=== PATIENT | male | born 1935 | race Caucasian/White ===

== ENCOUNTER 2016-11-29 16:11 | Inpatient (IN) | payer OTHER, MEDICARE ==
--- NOTE | 2016-11-29 16:35 | EDPHY ---
H & P Time Seen by Provider: 11/29/16 16:35 HPI/ROS: Portions of this note were transcribed by a medical appliance maker. I personally performed the history, physical exam, and medical decision-making; and confirmed the accuracy of the information in the transcribed note. CHIEF COMPLAINT: Cough, fever, weakness HISTORY OF PRESENT ILLNESS: The patient is an anticoagulated 81y/o male arriving with his due to cough, weakness, and fever since yesterday. He was recently admitted for a lower GI bleed and discharged 48 hours ago. He is on Pradaxa for atrial fibrillation. His has been ill with an upper respiratory illness recently. The reports a fever of 101.5F today and generalized weakness. The patient says he was able to walk the dog this morning , but then came home and collapsed. He feels extremely tired and is worse with exertion. Not associated with chest pain. He does endorse some mild abdominal pain and headache. He denies black or bloody stools, sore throat, vomiting, visual problems. REVIEW OF SYSTEMS: Eye: no change in vision ENT: no sore throat Cardiac: no chest pain or syncope Pulmonary: see HPI Abdomen: see HPI Musculoskeletal: no back pain Skin: no rash Neuro: poor balance from CVA Constitutional: no fever : no urinary symptoms A comprehensive 10 point review of systems is otherwise negative aside from elements mentioned in the history of present illness. PAST MEDICAL HISTORY: CVA, atrial fibrillation, sleep apnea, depression Social history: Former smoker, at bedside PCP: Dr. Carey at [facility] General Appearance: Alert and conversant, cooperative. Eyes: No scleral icterus. ENT, Mouth: Normal mucous membranes. Normal pharynx. Respiratory: Normal respiratory effort, breath sounds equal, lungs have left lower lung crackles. Cardiovascular: Regular rate and rhythm. 2/6 systolic murmur Gastrointestinal: Abdomen is soft and non tender. Neurological: Alert and oriented x3. Normally conversant. Face symmetric, normal movement and sensation in all extremities. Skin: Warm and diaphoretic, no rashes. Musculoskeletal: No peripheral edema and no joint swelling. Psychiatric: Not agitated. Emergency Department course/MDM: IV established. Labs drawn including CBC, CHEM, bilirubin, PTPTT, lactic acid, cultures. 1L IV NS administered. Patient placed on athletic monitor. Plan for chest x-ray. Study: PA and Lateral Chest X-ray Indication: Cough, fever Results: After viewing the images myself on the PACS system. My interpretation of the images is: left lower lobe infiltrate. The radiologist interpretation is pending at the time of this dictation. The 12 lead EKG was interpreted by myself. EKG shows sinus rhythm rate 58 with nonspecific intraventricular conduction delay, minimal ST depression anterolateral leads. See hard copy and/or "tracemaster" electronic copy for interpretation. 1744: Results discussed with the patient. Initial oxygen saturation was documented at 88% but the patient was down as low as 82% in the room. He will need to be admitted to the hospital for possible healthcare acquired pneumonia with recent inpatient stay. He does not currently have SIRS criteria. Cefepime and azithromycin, discussed with hospitalist. Needs to be admitted for hypoxemia, oxygen, and IV antibiotics. Smoking Status: Never smoked Constitutional: Initial Vital Signs Temperature (C) 37.2 C 11/29/16 16:16 Heart Rate 61 11/29/16 16:16 Respiratory Rate 18 11/29/16 16:16 Blood Pressure 128/71 H 11/29/16 16:16 O2 Sat (%) 88 L 11/29/16 16:16 O2 Delivery Mode Room Air Allergies/Adverse Reactions: amiodarone [Amiodarone] Allergy (Unknown, Verified 04/26/10 21:28) Other-Enter Comments hydromorphone HCl [From Dilaudid] Allergy (Unknown, Verified 04/26/10 21:28) Other-Enter Comments Home Medications: Medication Instructions Recorded Valacyclovir HCl [Valacyclovir] 1,000 mg PO BID PRN 11/09/15 C/E/Zn/Cu/OM3/DHA/EPA/LUT/ZEAX 1 each PO HS 11/25/16 [Preservision Areds 2 Softgel] Dabigatran Etexilate Mesyl 150 mg PO BID 11/25/16 [Pradaxa 150 MG (*)] Losartan Potassium [Cozaar 50 mg 100 mg PO HS 11/25/16 (*)] [place]-3 Fatty Acids [Fish Oil 1000 1,000 mg PO DAILY 11/25/16 mg (*)] Pravastatin Sodium 20 mg PO DAILY 11/25/16 Acetaminophen [Tylenol 325mg (*)] 650 mg PO PRN PRN 11/29/16 Cholecalciferol Vit D3 [Vitamin D3 1,000 units PO BID 11/29/16 (*)] Fluticasone Nasal [Flonase Nasal 1 sprays EACHNARE DAILY PRN 11/29/16 [place] (RX)] Vit B Comp/C/FA/Iron/Vit E 1 each PO DAILY 11/29/16 [Vitamin B Complex Tablet] prednisoLONE ACET 1% [Pred Forte 1 drop EACHEYE TID 11/29/16 1% (*)] Medical Decision Making Differential Diagnosis: Differential considered including but not limited to pneumonia, UTI, stroke, acute coronary syndrome, metabolic abnormality. On Pradaxa, I think pulmonary embolism is unlikely. Consult/Admit Bed Type: Leticia Francis 2791 - Data Points Laboratory Results: Laboratory Results 11/29/16 16:41 11/29/16 16:41 11/29/16 11/29/16 16:48 16:41 WBC 4.29 10^3/uL (3.80-9.50) RBC 3.29 L 10^6/uL (4.40-6.38) Hgb 9.9 L g/dL (13.7-17.5) Hct 28.3 L % (40.0-51.0) MCV 86.0 fL (81.5-99.8) MCH 30.1 pg (27.9-34.1) MCHC 35.0 g/dL (32.4-36.7) RDW 13.4 % (11.5-15.2) Plt Count 124 L 10^3/uL (150-400) MPV 10.2 fL (8.7-11.7) Neut % (Auto) 76.7 H % (39.3-74.2) Lymph % (Auto) 9.3 L % (15.0-45.0) Cherry % (Auto) 11.0 % (4.5-13.0) Eos % (Auto) 1.9 % (0.6-7.6) Baso % (Auto) 0.2 L % (0.3-1.7) Nucleat RBC Rel Count 0.5 H % (0.0-0.2) Absolute Neuts (auto) 3.29 10^3/uL (1.70-6.50) Absolute Lymphs (auto) 0.40 L 10^3/uL (1.00-3.00) Absolute Monos (auto) 0.47 10^3/uL (0.30-0.80) Absolute Eos (auto) 0.08 10^3/uL (0.03-0.40) Absolute Basos (auto) 0.01 L 10^3/uL (0.02-0.10) Absolute Nucleated RBC 0.02 H 10^3/uL (0-0.01) Immature Gran % 0.9 % (0.0-1.1) Immature Gran # 0.04 10^3/uL (0.00-0.10) PT 16.5 H SEC (12.0-15.0) INR 1.33 H (0.83-1.16) APTT 38.8 H SEC (23.0-38.0) VBG Lactic Acid 0.9 mmol/L (0.7-2.1) Sodium 137 mEq/L (134-144) Potassium 3.9 mEq/L (3.5-5.2) Chloride 102 mEq/L (97-110) Carbon Dioxide 25 mEq/l (22-31) Anion Gap 10 mEq/L (8-16) BUN 8 mg/dL (7-23) Creatinine 1.0 mg/dL (0.7-1.3) Estimated GFR > 60 Glucose 112 H mg/dL (70-100) Calcium 8.7 mg/dL (8.5-10.4) Total Bilirubin 0.7 mg/dL (0.1-1.4) Medications Given: Discontinued Medications Cefepime HCl 1 gm/ Dextrose 50 mls @ 100 mls/hr IV EDNOW ONE PRN Reason: Protocol Stop: 11/29/16 18:16 Last Admin: 11/29/16 18:13 Dose: 50 mls Sodium Chloride (Ns) 1,000 mls @ 0 mls/hr IV ONCE ONE PRN Reason: Wide Open Stop: 11/29/16 17:48 Last Admin: 11/29/16 18:13 Dose: 1,000 mls Departure - Departure Disposition: [facility] Inpatient Acute Clinical Impression: Pneumonia Qualifiers: Pneumonia type: due to unspecified organism Laterality: left Lung location: lower lobe of lung Qualifier Code: (J18.1) Lobar pneumonia, unspecified organism Condition: Fair
--- NOTE | 2016-11-29 16:49 | CPEKG ---
Heart Rate: 58 RR Interval: 1034 P-R Interval: 168 QRSD Interval: 112 QT Interval: 436 QTC Interval: 429 P Pickford: 26 QRS Pickford: 14 T Wave Pickford: 47 EKG Severity - ABNORMAL ECG - EKG Impression: SINUS RHYTHM EKG Impression: NONSPECIFIC INTRAVENTRICULAR CONDUCTION DELAY EKG Impression: MINIMAL ST DEPRESSION, ANTEROLATERAL LEADS Electronically Signed By: Afshin West 29-Nov-2016 19:32:03
[2016-11-29 16:56] LABS: % IMMATURE GRANULYOCYTES 0.9 % (0.0-1.1); ABSOLUTE IMMATURE GRANULOCYTES 0.04 10^3/uL (0.00-0.10); ABSOLUTE NRBC COUNT 0.02 10^3/uL (0-0.01); ADD DIFF? NO; ADD MORPH? NO; ADD SCAN? NO; ATYPICAL LYMPHOCYTE FLAG 40 (0-99); FRAGMENT RBC FLAG 0 (0-99); HEMATOCRIT 28.3 % (40.0-51.0); HEMOGLOBIN 9.9 g/dL (13.7-17.5); LEFT SHIFT FLG 0 (0-99); LIPEMIA HEMOLYSIS FLAG 90 (0-99); MEAN CELL HEMOGLOBIN 30.1 pg (27.9-34.1); MEAN PLATELET VOLUME 10.2 fL (8.7-11.7); NRBC-AUTO% 0.5 % (0.0-0.2); PLATELET CLUMPS FLAG 0 (0-99); PLATELET COUNT 124 10^3/uL (150-400); RED BLOOD CELL COUNT 3.29 10^6/uL (4.40-6.38); RED CELL DISTRIBUTION WIDTH 13.4 % (11.5-15.2)
[2016-11-29 17:12] LABS: INR 1.33 (0.83-1.16); PROTIME(PATIENT) 16.5 SEC (12.0-15.0)
[2016-11-29 17:13] LABS: APTT 38.8 SEC (23.0-38.0); BILIRUBIN,TOTAL 0.7 mg/dL (0.1-1.4)
[2016-11-29 17:37] LABS: ANION GAP 10 mEq/L (8-16); CALCIUM 8.7 mg/dL (8.5-10.4); CARBON DIOXIDE 25 mEq/l (22-31); CHLORIDE 102 mEq/L (97-110); GLOMERULAR FILTRATION RATE > 60; GLUCOSE 112 mg/dL (70-100); POTASSIUM 3.9 mEq/L (3.5-5.2); SODIUM 137 mEq/L (134-144)
[2016-11-29] MEDS ORDERED: AZITHROMYCIN IV 500 MG in D5W 250 ML IV ONE (17:47)
[2016-11-29] MEDS ORDERED: NS 1,000 ML IV ONE (17:47)
[2016-11-29] MEDS ORDERED: CEFEPIME HCL 1 GM in D5W 50 ML IV ONE (17:47)
--- NOTE | 2016-11-29 18:00 | DX ---
Chest, AP Upright and Lateral Views, November 29, 2016 at 4:55 p.m. Clinical History: 81-year-old male with a cough since yesterday. Comparison Study: Chest, dated November 09, 2015. Findings: Oxygen tubing and telemetry monitoring lead lines are noted. The cardiac silhouette is mary rderline-enlarged, however, is stable. There is mild peribronchial thickening. There is some bronch ovascular crowding at the posterior left lung base, which may reflect an early mild infiltrate. Ther e is no pleural effusion, peripheral interstitial edema, or pneumothorax. A dextrothoracic scoliosis is seen. There are surgical clips in the upper abdomen. Impression: Suspect an early infiltrate at the posterior left lung base. Results were discussed with Dr. Afshin West.
[2016-11-29] MEDS ORDERED: valACYclovir 500 MG TAB PO PRN (18:59)
[2016-11-29] MEDS ORDERED: ACETAMINOPHEN 325 MG TAB PO PRN (18:59)
[2016-11-29] MEDS ORDERED: FLUTICASONE NASAL 120 SPRAYS/16 GM MDI EACHNARE PRN (18:59)
[2016-11-29] MEDS ORDERED: IBUPROFEN 200 MG TAB PO PRN (19:01)
[2016-11-29] MEDS ORDERED: ONDANSETRON DISINTEGRATING 4 MG TAB PO PRN (19:01)
[2016-11-29] MEDS ORDERED: ONDANSETRON 4 MG/2 ML VIAL IVP PRN (19:01)
--- NOTE | 2016-11-29 20:09 | GHP ---
[f rep st] HISTORY AND PHYSICAL DATE OF ADMISSION: 11/29/2016 HISTORY OF PRESENT ILLNESS: The patient is a pleasant, 81-year-old gentleman, with a history of atri al fibrillation with stroke and recent admission for lower GI bleed, discharged 2 days ago, who prese nts with malaise and cough. It sounds like his cough started yesterday. He did get a flu shot this year. He has had modest shortness of breath and he has had subjective fevers. His noted a temp erature of 101.5. He was able to walk the dog this morning, but came home and felt very fatigued aft er that. He has had no myalgias. No diarrhea. He has been eating poorly secondary to poor appetite. He has had no further black or bloody stools. He has not vomited. PAST MEDICAL HISTORY: 1. Atrial fibrillation on Pradaxa. 2. History of CVA, little residual. 3. Recent lower GI bleed, presumed secondary to diverticular disease as diverticula were seen on col onoscopy. 4. Mild cognitive dysfunction. 5. Colon cancer, status post resection, radiation, chemotherapy. 6. TAMARA using CPAP. 7. Depression. 8. Hypertension. 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 He has traveled the world. No tobacco. He quit sm oking in 1945. He drinks 3 ounces of alcohol a day. FAMILY HISTORY: His parents are . ALLERGIES: Amiodarone, hydromorphone. HOME MEDICATIONS: Pradaxa, Flonase, Tylenol, prednisolone eye drops, vitamin B complex, vitamin D3, valacyclovir 1000 p.r.n., pravastatin, fish oil, losartan, PreserVision. PHYSICAL EXAM: PRESENTING VITAL SIGNS: Temp 37.2, blood pressure 128/71, pulse 61, breathing 18 earnestine es per minute, 88% on room air. GENERAL: No acute distress. HEENT: Sclerae anicteric. Oropharynx clear. Mucous membranes are moist. NECK: Supple, without lymphadenopathy or JVD. LUNGS: Clear t o auscultation bilaterally, though has some decreased breath sounds to left base. HEART: S1, S2. N ot tachycardic. Without significant murmurs. ABDOMEN: Soft, nontender, nondistended. LOWER EXTREM ITIES: Without edema. Calves are nontender. SKIN: Without rash. NEUROLOGIC: Nonfocal. LABORATORY DATA: White count 4.3, hematocrit 28.3, which is up from 27.6 a couple of days ago. Plat elets are 124,000. INR is 1.33. Venous lactate is 0.9. Chem 7 is normal. BUN and creatinine are 8 and 1.0. Influenza is positive for influenza A. Chest x-ray, interpreted by me, shows possible ear ly left lower lobe infiltrate. EKG is pending. I discussed the case with Dr. Afshin West. ASSESSMENT AND PLAN: This is an 81-year-old gentleman with influenza and possible secondary pneumoni a. 1. Influenza. The patient did get a flu shot this year, apparently it was not completely effective. We will start him on Tamiflu. 2. Pneumonia. Given the focality of this, it may represent bacterial pneumonia, so he received cefe pime and azithromycin in the emergency department. I will transition him to levofloxacin. 3. Atrial fibrillation. Will continue to use Pradaxa. He is not on any danie agents. 4. Recent lower GI bleed. He remains anemic, but bleeding appears to have stopped. We will follow. 5. Prophylaxis. . 6. Disposition. Inpatient status. /[id number]/MODL
[2016-11-29] MEDS: DABIGATRAN ETEXILATE MESYL 150 MG CAP PO SCH (20:59)
[2016-11-29] MEDS: CHOLECALCIFEROL VIT D3 1,000 UNITS TAB PO SCH (21:00)
[2016-11-29] MEDS: PRESERVISION AREDS 2 EYE VITAMIN 1 EACH PO SCH (21:00)
[2016-11-29] MEDS: LOSARTAN POTASSIUM 50 MG TAB PO SCH (21:00)
[2016-11-29] MEDS: prednisoLONE ACET 1% 5 ML OPHT.BTL EACHEYE SCH (22:51)
[2016-11-30 05:00] LABS: % IMMATURE GRANULYOCYTES 0.6 % (0.0-1.1); ABSOLUTE IMMATURE GRANULOCYTES 0.02 10^3/uL (0.00-0.10); ABSOLUTE NRBC COUNT 0.02 10^3/uL (0-0.01); ADD DIFF? NO; ADD MORPH? NO; ADD SCAN? NO; ATYPICAL LYMPHOCYTE FLAG 0 (0-99); FRAGMENT RBC FLAG 0 (0-99); HEMATOCRIT 26.6 % (40.0-51.0); HEMOGLOBIN 9.1 g/dL (13.7-17.5); LEFT SHIFT FLG 0 (0-99); LIPEMIA HEMOLYSIS FLAG 90 (0-99); MEAN CELL HEMOGLOBIN 29.7 pg (27.9-34.1); MEAN CELL HEMOGLOBIN CONCENTR. 34.2 g/dL (32.4-36.7); MEAN CELL VOLUME 86.9 fL (81.5-99.8); MEAN PLATELET VOLUME 10.4 fL (8.7-11.7); NRBC-AUTO% 0.6 % (0.0-0.2); PLATELET CLUMPS FLAG 0 (0-99); PLATELET COUNT 116 10^3/uL (150-400); RED BLOOD CELL COUNT 3.06 10^6/uL (4.40-6.38); RED CELL DISTRIBUTION WIDTH 13.6 % (11.5-15.2)
[2016-11-30 05:42] LABS: ANION GAP 9 mEq/L (8-16); CALCIUM 8.1 mg/dL (8.5-10.4); CARBON DIOXIDE 25 mEq/l (22-31); CHLORIDE 104 mEq/L (97-110); CREATININE 0.9 mg/dL (0.7-1.3); GLOMERULAR FILTRATION RATE > 60; GLUCOSE 106 mg/dL (70-100); SODIUM 138 mEq/L (134-144)
[2016-11-30] MEDS: CHOLECALCIFEROL VIT D3 1,000 UNITS TAB PO SCH ×2 (10:03→20:45)
[2016-11-30] MEDS: OSELTAMIVIR PHOSPHATE 75 MG CAP PO SCH ×2 (10:03→18:24)
[2016-11-30] MEDS: VITAMIN B COMPLEX 1 EA CAP/TAB PO SCH (10:03)
[2016-11-30] MEDS: DABIGATRAN ETEXILATE MESYL 150 MG CAP PO SCH ×2 (10:03→20:45)
[2016-11-30] MEDS: PRAVASTATIN SODIUM 20 MG TAB PO SCH (10:04)
[2016-11-30] MEDS: OMEGA-3 FATTY ACIDS 1,000 MG CAP PO SCH (10:04)
[2016-11-30] MEDS: prednisoLONE ACET 1% 5 ML OPHT.BTL EACHEYE SCH ×3 (10:10→20:48)
--- NOTE | 2016-11-30 13:11 | HOSPPROG ---
Hospitalist Progress Note Assessment/Plan: 81-year-old male presents emergency room complaints of cough and weakness. This is my 1st encounter with the patient, chart reviewed. Discussed patient's care with Dr. Hima Francis admitting physician. # influenzae a Continue supportive care # pneumonia Continue antibiotic therapy # weakness PT OT eval # atrial fibrillation Continue Pradaxa # acute hypoxemic respiratory failure Continue supportive oxygen therapy # anemia Normocytic Had reported recent gastrointestinal bleed No signs of bleeding currently Appears stable # history of CVA Chronic weakness secondary to this complication # disposition Await PT OT eval and recommendations Anticipate patient discharge in the next 1-2 days Will likely need home health care at the minimum Subjective: Up in bed. Still feels weak and tired. Continues to have complaints of cough. No other specific issues. Objective: Vital Signs Temp Pulse Resp BP Pulse Ox 37.0 C 72 18 132/89 H 94 11/30/16 11:20 11/30/16 11:20 11/30/16 11:20 11/30/16 11:20 11/30/16 11:20 Laboratory Results 11/30/16 04:48 11/30/16 04:48 11/29/16 11/30/16 12/01/16 05:59 05:59 05:59 Intake Total 1925 Output Total 400 Balance 1525 PT 16.5 SEC (12.0-15.0) H 11/29/16 16:48 INR 1.33 (0.83-1.16) H 11/29/16 16:48 - Physical Exam Constitutional: not in pain, chronically ill appearing, cachectic Eyes: PERRL, anicteric sclera, EOMI Ears, Nose, Mouth, Throat: moist mucous membranes, hearing normal, ears appear normal Cardiovascular: regular rate and rhythym, No JVD, No edema Respiratory: no respiratory distress, no rales or rhonchi, reduced air movement Gastrointestinal: No tenderness, No ascites, No guarding Skin: warm, normal color, No erythema Musculoskeletal: muscular tenderness, abnormal gait, generalized weakness Neurologic: AAOx3 Psychiatric: interacting appropriately, not anxious, not encephalopathic ICD10 Worksheet Patient Problems: Problems Problem Status Diagnosed Pneumonia Acute Bronchitis Acute Dehydration Acute GIB (gastrointestinal bleeding) Acute Intoxication Acute
[2016-11-30] MEDS: LOSARTAN POTASSIUM 50 MG TAB PO SCH (20:45)
[2016-11-30] MEDS: PRESERVISION AREDS 2 EYE VITAMIN 1 EACH PO SCH (20:45)
[2016-12-01] MEDS: CHOLECALCIFEROL VIT D3 1,000 UNITS TAB PO SCH ×2 (08:30→20:38)
[2016-12-01] MEDS: VITAMIN B COMPLEX 1 EA CAP/TAB PO SCH (08:30)
[2016-12-01] MEDS: OMEGA-3 FATTY ACIDS 1,000 MG CAP PO SCH (08:30)
[2016-12-01] MEDS: OSELTAMIVIR PHOSPHATE 75 MG CAP PO SCH ×2 (08:30→17:36)
[2016-12-01] MEDS: DABIGATRAN ETEXILATE MESYL 150 MG CAP PO SCH ×2 (08:30→20:38)
[2016-12-01] MEDS: PRAVASTATIN SODIUM 20 MG TAB PO SCH (08:30)
[2016-12-01] MEDS: prednisoLONE ACET 1% 5 ML OPHT.BTL EACHEYE SCH ×3 (08:30→21:46)
--- NOTE | 2016-12-01 08:47 | HOSPPROG ---
Hospitalist Progress Note Assessment/Plan: 81-year-old male presents emergency room complaints of cough and weakness. This is my 1st encounter with the patient, chart reviewed. # influenzae a Continue supportive care # pneumonia Continue antibiotic therapy on 2 L of oxygen will check O2 levels on room air # weakness PT OT eval # atrial fibrillation Continue Pradaxa # acute hypoxemic respiratory failure Continue supportive oxygen therapy # anemia Normocytic Had reported recent gastrointestinal bleed No signs of bleeding currently # history of CVA Chronic weakness secondary to this complication concerned that he is weak from the above # disposition pending /PT and OT are recommending home care versus a alf facility Subjective: Pepe wants to go home/ says he likes resting in the bed and that is why he has not been ambulating. Objective: Vital Signs Temp Pulse Resp BP Pulse Ox 36.7 C 79 18 109/67 95 12/01/16 07:21 12/01/16 07:21 12/01/16 07:21 12/01/16 07:21 12/01/16 07:21 Laboratory Results 11/30/16 04:48 11/30/16 04:48 11/30/16 12/01/16 12/02/16 05:59 05:59 05:59 Intake Total 1925 200 Output Total 400 2300 Balance 1525 -2100 PT 16.5 SEC (12.0-15.0) H 11/29/16 16:48 INR 1.33 (0.83-1.16) H 11/29/16 16:48 - Physical Exam Constitutional: no apparent distress, appears nourished Eyes: PERRL Ears, Nose, Mouth, Throat: hearing normal Cardiovascular: regular rate and rhythym Respiratory: no respiratory distress, reduced air movement (bibasilar) Gastrointestinal: normoactive bowel sounds Skin: warm, normal color Musculoskeletal: generalized weakness Neurologic: AAOx3 Psychiatric: interacting appropriately ICD10 Worksheet Patient Problems: Problems Problem Status Diagnosed Pneumonia Acute Bronchitis Acute Dehydration Acute GIB (gastrointestinal bleeding) Acute Intoxication Acute
[2016-12-01] MEDS ORDERED: NS 300 ML IV ONE (12:02)
[2016-12-01] MEDS: NS 1,000 ML IV SCH (20:38)
[2016-12-01] MEDS: PRESERVISION AREDS 2 EYE VITAMIN 1 EACH PO SCH (20:38)
[2016-12-02 05:29] LABS: % IMMATURE GRANULYOCYTES 0.8 % (0.0-1.1); ABSOLUTE IMMATURE GRANULOCYTES 0.03 10^3/uL (0.00-0.10); ADD DIFF? NO; ADD MORPH? NO; ADD SCAN? NO; ATYPICAL LYMPHOCYTE FLAG 70 (0-99); FRAGMENT RBC FLAG 0 (0-99); HEMATOCRIT 32.3 % (40.0-51.0); HEMOGLOBIN 10.9 g/dL (13.7-17.5); LEFT SHIFT FLG 10 (0-99); LIPEMIA HEMOLYSIS FLAG 80 (0-99); MEAN CELL HEMOGLOBIN 29.7 pg (27.9-34.1); MEAN CELL HEMOGLOBIN CONCENTR. 33.7 g/dL (32.4-36.7); MEAN PLATELET VOLUME 10.6 fL (8.7-11.7); PLATELET CLUMPS FLAG 0 (0-99); PLATELET COUNT 159 10^3/uL (150-400); RED BLOOD CELL COUNT 3.67 10^6/uL (4.40-6.38); RED CELL DISTRIBUTION WIDTH 13.5 % (11.5-15.2)
[2016-12-02 06:02] LABS: ANION GAP 12 mEq/L (8-16); CARBON DIOXIDE 18 mEq/l (22-31); CHLORIDE 110 mEq/L (97-110); CREATININE 0.9 mg/dL (0.7-1.3); GLOMERULAR FILTRATION RATE > 60; GLUCOSE 90 mg/dL (70-100); POTASSIUM 4.3 mEq/L (3.5-5.2); SODIUM 140 mEq/L (134-144)
[2016-12-02] MEDS: NS 1,000 ML IV SCH (07:28)
[2016-12-02] MEDS: DABIGATRAN ETEXILATE MESYL 150 MG CAP PO SCH ×2 (09:13→21:02)
[2016-12-02] MEDS: PRAVASTATIN SODIUM 20 MG TAB PO SCH (09:13)
[2016-12-02] MEDS: CHOLECALCIFEROL VIT D3 1,000 UNITS TAB PO SCH ×2 (09:14→21:02)
[2016-12-02] MEDS: OSELTAMIVIR PHOSPHATE 75 MG CAP PO SCH ×2 (09:14→17:50)
[2016-12-02] MEDS: OMEGA-3 FATTY ACIDS 1,000 MG CAP PO SCH (09:14)
[2016-12-02] MEDS: VITAMIN B COMPLEX 1 EA CAP/TAB PO SCH (09:14)
[2016-12-02] MEDS: prednisoLONE ACET 1% 5 ML OPHT.BTL EACHEYE SCH ×4 (10:58→21:02)
[2016-12-02] MEDS ORDERED: NS 250 ML IV ONE (11:18)
--- NOTE | 2016-12-02 11:20 | HOSPPROG ---
Hospitalist Progress Note Assessment/Plan: 81-year-old male presents emergency room complaints of cough and weakness. # influenzae a Continue supportive care # pneumonia Continue antibiotic therapy on 2 L of oxygen oxygen levels on room air ranging from 88% to 92% blood cx show no growth #. hypotension required fluid boluses yesterday spoke with occupational therapy and patient was hypotensive after ambulating. will give another fluid bolus now will continue holding his losartan # weakness PT OT seeing Pepe # atrial fibrillation Continue Pradaxa # acute hypoxemic respiratory failure Continue supportive oxygen therapy # anemia Normocytic Had reported recent gastrointestinal bleed No signs of bleeding currently # history of CVA Chronic weakness secondary to this complication concerned that he is weak from the above # disposition pending /blood pressure has been low again today/ he is not ready to go home/ will need home care at [place]/ reviewed his care with OT Subjective: Pepe has no complaints/ is worried about paying taxes and wants to get home soon. Objective: Vital Signs Temp Pulse Resp BP Pulse Ox 36.6 C 83 16 104/73 94 12/02/16 07:51 12/02/16 07:51 12/02/16 07:51 12/02/16 07:51 12/02/16 07:51 Laboratory Results 12/02/16 04:51 12/02/16 04:51 12/01/16 12/02/16 12/03/16 05:59 05:59 05:59 Intake Total 200 770 Output Total 2300 300 Balance -2100 470 PT 16.5 SEC (12.0-15.0) H 11/29/16 16:48 INR 1.33 (0.83-1.16) H 11/29/16 16:48 - Physical Exam Constitutional: not in pain, chronically ill appearing Eyes: PERRL Ears, Nose, Mouth, Throat: hearing normal Cardiovascular: regular rate and rhythym Respiratory: no respiratory distress Gastrointestinal: normoactive bowel sounds Skin: warm, normal color Musculoskeletal: generalized weakness Neurologic: AAOx3 Psychiatric: interacting appropriately, not anxious, poor insight ICD10 Worksheet Patient Problems: Problems Problem Status Diagnosed Pneumonia Acute Bronchitis Acute Dehydration Acute GIB (gastrointestinal bleeding) Acute Intoxication Acute
[2016-12-02] MEDS: PRESERVISION AREDS 2 EYE VITAMIN 1 EACH PO SCH (21:02)
[2016-12-03 06:11] LABS: % IMMATURE GRANULYOCYTES 1.3 % (0.0-1.1); ABSOLUTE IMMATURE GRANULOCYTES 0.05 10^3/uL (0.00-0.10); ADD DIFF? NO; ADD MORPH? NO; ADD SCAN? YES; FRAGMENT RBC FLAG 0 (0-99); HEMATOCRIT 31.6 % (40.0-51.0); HEMOGLOBIN 10.9 g/dL (13.7-17.5); LEFT SHIFT FLG 10 (0-99); LIPEMIA HEMOLYSIS FLAG 90 (0-99); MEAN CELL HEMOGLOBIN 29.8 pg (27.9-34.1); MEAN CELL HEMOGLOBIN CONCENTR. 34.5 g/dL (32.4-36.7); MEAN CELL VOLUME 86.3 fL (81.5-99.8); MEAN PLATELET VOLUME 10.2 fL (8.7-11.7); PLATELET CLUMPS FLAG 0 (0-99); PLATELET COUNT 164 10^3/uL (150-400); RED BLOOD CELL COUNT 3.66 10^6/uL (4.40-6.38); RED CELL DISTRIBUTION WIDTH 13.5 % (11.5-15.2)
[2016-12-03 06:13] LABS: ATYPICAL LYMPHOCYTE FLAG 120 (0-99)
[2016-12-03 06:48] LABS: SCAN NEGATIVE
[2016-12-03 08:03] VITALS: RESP 18; TEMP 97.8
[2016-12-03] MEDS: DABIGATRAN ETEXILATE MESYL 150 MG CAP PO SCH (08:51)
[2016-12-03] MEDS: CHOLECALCIFEROL VIT D3 1,000 UNITS TAB PO SCH (08:51)
[2016-12-03] MEDS: OMEGA-3 FATTY ACIDS 1,000 MG CAP PO SCH (08:51)
[2016-12-03] MEDS: OSELTAMIVIR PHOSPHATE 75 MG CAP PO SCH (08:52)
[2016-12-03] MEDS: VITAMIN B COMPLEX 1 EA CAP/TAB PO SCH (08:52)
[2016-12-03] MEDS: PRAVASTATIN SODIUM 20 MG TAB PO SCH (08:52)
[2016-12-03] MEDS: prednisoLONE ACET 1% 5 ML OPHT.BTL EACHEYE SCH (09:02)
--- NOTE | 2016-12-03 09:18 | HOSPPROG ---
Hospitalist Progress Note Assessment/Plan: 81-year-old male presents emergency room complaints of cough and weakness. # influenzae a Continue supportive care # pneumonia Continue antibiotic therapy oxygen levels on room air are 91-95% #. hypotension resolve/ holding Losartan #. GI distress this a.m. resolved after having a bowel movement # weakness PT OT seeing Pepe # atrial fibrillation Continue Pradaxa # acute hypoxemic respiratory failure resolved # anemia Normocytic Had reported recent gastrointestinal bleed No signs of bleeding currently will get an h/h checked in one week # history of CVA Chronic weakness secondary to this complication concerned that he is weak from the above # disposition: home w home care/ Patient was asking to stay another night to give his support since she has been feeling poorly. Explained to him that we will arrange home care to f/u with him. He is oxygenating well and has no further complaints. Subjective: Pepe has no c/o pain. Objective: Vital Signs Temp Pulse Resp BP Pulse Ox 36.6 C 100 18 145/70 H 98 12/03/16 08:00 12/03/16 08:00 12/03/16 08:00 12/03/16 08:00 12/03/16 08:00 Laboratory Results 12/03/16 05:26 12/02/16 04:51 12/02/16 12/03/16 12/04/16 05:59 05:59 05:59 Intake Total 770 1500 Output Total 300 400 Balance 470 1500 -400 PT 16.5 SEC (12.0-15.0) H 11/29/16 16:48 INR 1.33 (0.83-1.16) H 11/29/16 16:48 - Physical Exam Constitutional: no apparent distress, appears nourished, chronically ill appearing Eyes: PERRL Ears, Nose, Mouth, Throat: hearing normal Cardiovascular: regular rate and rhythym Respiratory: no respiratory distress, clear to auscultation Gastrointestinal: normoactive bowel sounds Skin: warm Musculoskeletal: no muscle tenderness Neurologic: AAOx3 Psychiatric: interacting appropriately, not anxious, not encephalopathic ICD10 Worksheet Patient Problems: Problems Problem Status Diagnosed Chronic Disease Mgmt/Transitional Care Acute Pneumonia Acute Bronchitis Acute Dehydration Acute GIB (gastrointestinal bleeding) Acute Intoxication Acute
[2016-12-03 10:26] VITALS: BP 105/65; PULSE 102; O2SAT 94
--- NOTE | 2016-12-03 11:42 | PDIAF ---
- Diagnosis Diagnosis: Influenza/ CAP Code Status: Full Code - Medication Management Discharge Medications: Medications to Continue on Transfer Valacyclovir HCl [Valacyclovir] 1,000 mg PO BID PRN 11/09/15 [Last Taken Unknown ] C/E/Zn/Cu/OM3/DHA/EPA/LUT/ZEAX [Preservision Areds 2 Softgel] 1 each PO HS 11/25 [Last Taken 11/29/16] Dabigatran Etexilate Mesyl [Pradaxa 150 MG (*)] 150 mg PO BID 11/25/16 [Last Taken 11/29/16] Losartan Potassium [Cozaar 50 mg (*)] 100 mg PO HS 11/25/16 [Last Taken 11/28/16 ] [place]-3 Fatty Acids [Fish Oil 1000 mg (*)] 1,000 mg PO DAILY 11/25/16 [Last Taken 11/28/16] Pravastatin Sodium 20 mg PO DAILY 11/25/16 [Last Taken 11/29/16] Acetaminophen [Tylenol 325mg (*)] 650 mg PO PRN PRN 11/29/16 [Last Taken ] Cholecalciferol Vit D3 [Vitamin D3 (*)] 1,000 units PO BID 11/29/16 [Last Taken 11/29/16 08:00] Fluticasone Nasal [Flonase Nasal [place]] 1 sprays EACHNARE DAILY PRN 11/29/16 [ Last Taken 11/29/16] Vit B Comp/C/FA/Iron/Vit E [Vitamin B Complex Tablet] 1 each PO DAILY 11/29/16 [ Last Taken 11/29/16] prednisoLONE ACET 1% [Pred Forte 1% (*)] 1 drop LEFTEYE TID 11/29/16 [Last Taken 11/29/16 12:00] Oseltamivir Phosphate [Tamiflu 75 mg (*)] 75 mg PO BIDMEAL #3 cap 12/03/16 [ Last Taken Unknown] levOFLOXACIN [levAQUIN (*)] 750 mg PO DAILY #3 tab 12/03/16 [Last Taken Unknown] Discharge Medications: Refer to the Discharge Home Medication list for PRN reason. - Orders Services needed: Home Care, Registered Nurse, Physical Therapy, Occupational Therapy Home Care Face to Face: I certify that this patient was under my care and that I had the required [id number] encounter meeting the encounter requirements on the discharge day. My findings support the fact that the patient is homebound as defined in CMS Chapter 7 Medicare Benefits Manual 30.1.1, The condition of the patient is such that there exists a normal inability to leave home and consequently, leaving home would require a considerable and taxing effort. Diet Recommendation: no restrictions on diet Diet Texture: Regular Texture Diet Additional: check blood pressure daily/ Losartan has been on hold due to low blood pressure while in the hospital/ discuss w PCP as to when to resume. Continue holding for now. Needs a repeat chest xray in 4-6 weeks for f/u care. - Labs/Radiology HCT/HGB Date: 12/09/15 Call or Fax Lab and Imaging Results to: to PCP - Follow Up Care Current Providers and Referrals: Rebeka Campbell [Primary Care Provider] - As per Instructions
--- NOTE | 2016-12-03 12:20 | GDS ---
[f rep st] DISCHARGE SUMMARY DISCHARGE DIAGNOSES: 1. Influenza A. 2. Community-acquired pneumonia. 3. Hypotension. 4. Gastrointestinal distress this morning. 5. Weakness. 6. Atrial fibrillation. 7. Acute hypoxemic respiratory failure. 8. Anemia. 9. History of cerebrovascular accident. BRIEF HISTORY: The patient is an 81-year-old gentleman with a history of atrial fibrillation, who was admitted prior to this admission for a lower GI bleed. He then represented to the emergency room with malaise and cough. He did get the flu shot. It was noted that he had influenza A. In addition, he was treated with Levaquin. He improved nicely through his stay. He will be discharged home with followup with his primary care provider. HOSPITAL COURSE PER PROBLEM: 1. Influenza A. he was treated with Tamiflu, will have 3 more doses. 2. Pneumonia. He is on Levaquin. Blood cultures are negative. His oxygen levels on room air are 91% to 95%. 3. Hypotension. Resolved with holding losartan. Spoke with his and recommend she hold this for the next week or 2, and talk to the primary care provider. 4. GI distress this morning. This has resolved after having a bowel movement. 5. Weakness. Much improved with PT and OT. 6. Atrial fibrillation. On Pradaxa. 7. Acute hypoxemic respiratory failure, resolved. 8. Anemia, normocytic. He had a recent GI bleed. He has no signs or symptoms of active bleeding. He will get a hemoglobin and hematocrit checked in 1 week. 9. History of CVA, stable. PENDING LABS AND TESTS: None. CONDITION ON DISCHARGE: Stable. Blood pressure is 145/70, O2 sats on room air 98%, respiratory rate is 18, pulse is 90, temperature 36.6 Celsius. MEDICATIONS AT DISCHARGE: Please see the EMR. DISCHARGE INSTRUCTIONS: 1. To resume his home medications, except to hold the losartan until he follows up with his primary care provider. 2. If he has fever, chills, chest pain or shortness of breath return to the ER. 3. To take the antibiotics and Tamiflu as instructed. Greater than 30 minutes discharging and coordinating care. /[id number]/MODL MTDD
== END 2016-12-03 13:34 | disposition home health service (06) | DRG 193 ==
LOC: F3E 18:29
PROVIDERS: ADMIT Internal Medicine; ATTEND Internal Medicine
DX: J10.00 Influenza due to other identified influenza virus with unspecified type of pneumonia (principal); J18.9 Pneumonia, unspecified organism; J96.00 Acute respiratory failure, unspecified whether with hypoxia or hypercapnia; I48.91 Unspecified atrial fibrillation; D64.9 Anemia, unspecified; K30 Functional dyspepsia; I95.9 Hypotension, unspecified; Z79.01 Long term (current) use of anticoagulants; Z86.73 Personal history of transient ischemic attack (TIA), and cerebral infarction without residual deficits
CPT/HCPCS: 96365; 97116-GP; 97162-GP; 97166-GO; 97530-GO; 97530-GP; 97535-GO; G8978-GP-CJ; G8979-GP-CI; G8987-GO-CK; G8988-GO-CI; G8989-GO-CI; J0456; J0692; J1956

== ENCOUNTER 2017-05-27 10:48 | Inpatient (IN) | payer OTHER, MEDICARE ==
--- NOTE | 2017-05-27 11:29 | EDPHY ---
H & P Time Seen by Provider: 05/27/17 11:09 HPI/ROS: CHIEF COMPLAINT: Urinary frequency HISTORY OF PRESENT ILLNESS: The patient is an 82-year-old male with history of bladder cancer and recent tumor removal two weeks ago, who presents with urinary frequency and urgency. Bactrim was prescribed after the surgery, the patient only took one. He received first dose of IV chemotherapy after the surgery. Since the surgery patient complains of urinary frequency and urgency. The patient had a urinary catheter placed, but continued to have urgency. The catheter was removed and patient urinated 17 times in one night. Last night the patient had a low grade fever of 99.8. He is slightly confused. Patient has decreased appetite due to nausea and is becoming increasingly more weak. He states he has not had anything to eat or drink due to associated nausea, dizziness, and fatigue. REVIEW OF SYSTEMS: A comprehensive 10 point review of systems is otherwise negative aside from elements mentioned in the history of present illness. Past Medical/Surgical History: HTN, AFib, Colon cancer, Sleep apnea, Depression, CVA, TIA Social History: . Has visiting home nurse. Smoking Status: Never smoked Physical Exam: General Appearance: Alert, slightly confused Eyes: Pupils equal and round, no conjunctival pallor or injection ENT, Mouth: Mucous membranes moist Neck: Normal inspection Respiratory: Lungs are clear to auscultation Cardiovascular: Regular rate and rhythm Gastrointestinal: Abdomen is soft and non-tender Genitourinary: Normal inspection Neurological: A&O, nonfocal exam Skin: Warm and dry, no rash Extremities: Nontender, no pedal edema Psychiatric: Mood and affect normal Constitutional: Initial Vital Signs Temperature (C) 36.5 C 05/27/17 10:52 Heart Rate 69 05/27/17 10:52 Respiratory Rate 14 05/27/17 10:52 Blood Pressure 119/93 H 05/27/17 10:52 O2 Sat (%) 95 05/27/17 10:52 O2 Delivery Mode Room Air Allergies/Adverse Reactions: amiodarone [Amiodarone] Allergy (Unknown, Verified 04/26/10 21:28) Other-Enter Comments hydromorphone HCl [From Dilaudid] Allergy (Unknown, Verified 04/26/10 21:28) Other-Enter Comments Sulfa (Sulfonamide Antibiotics) Allergy (Verified 05/27/17 13:38) Other-Enter Comments Home Medications: Medication Instructions Recorded Valacyclovir HCl [Valacyclovir] 1,000 mg PO BID PRN 11/09/15 C/E/Zn/Cu/OM3/DHA/EPA/LUT/ZEAX 1 each PO HS 11/25/16 [Preservision Areds 2 Softgel] Losartan Potassium [Cozaar 50 mg 100 mg PO HS 11/25/16 (*)] [place]-3 Fatty Acids [Fish Oil 1000 1,000 mg PO DAILY 11/25/16 mg (*)] Pravastatin Sodium 20 mg PO DAILY 11/25/16 Acetaminophen [Tylenol 325mg (*)] 650 mg PO PRN PRN 11/29/16 Cholecalciferol Vit D3 [Vitamin D3 1,000 units PO DAILY 11/29/16 (*)] Fluticasone Nasal [Flonase Nasal 1 sprays EACHNARE DAILY PRN 11/29/16 [place]] Vit B Comp/C/FA/Iron/Vit E 1 each PO DAILY 11/29/16 [Vitamin B Complex Tablet] prednisoLONE ACET 1% [Pred Forte 1 drop LEFTEYE DAILY 11/29/16 1% (*)] Apixaban [Eliquis] 2.5 mg PO BID 05/27/17 buPROPion SR [Wellbutrin 100mg SR 100 mg PO DAILY 05/27/17 (*)] Medical Decision Making - Diagnostics EKG Interpretation: EKG interpreted by me reveals normal sinus rhythm, normal axis, normal intervals , ST and T segments normal. Interpretation: normal EKG ED Course/Re-evaluation: Patient with history of bladder cancer, recent tumor removal two weeks ago, presents with urinary frequency. Patient received 1 dose of Bactrim after the surgery. He received first IV chemotherapy after the surgery. On exam patient is alert and slightly confused. Lab work including UA, CBC, and BMP ordered. UA consistent with urinary tract infection. Urine culture sent. Rocephin 1 g IV given. Given the patient's generalized weakness and confusion, he will be admitted for treatment of urinary tract infection. The hospitalist service was consulted for admission. Patient was stable throughout his emergency department stay. He does not meet SIRS criteria. Differential Diagnosis: Differential diagnosis for fever includes pyelonephritis, cholecystitis, influenza, cellulitis, pneumonia, abscess, meningitis. - Data Points Microbiology Results: MICROBIOLOGY 05/27/17 10:50 Urine,Clean Catch Urine Culture - Preliminary Enterobacter Cloacae Complex Medications Given: Discontinued Medications Sodium Chloride (Ns) 1,000 mls @ 0 mls/hr IV ONCE ONE; Wide Open PRN Reason: Protocol Stop: 05/27/17 11:48 Last Admin: 05/27/17 12:20 Dose: 1,000 mls Ceftriaxone Sodium/Dextrose (Rocephin 1 Gm (Premix)) 50 mls @ 100 mls/hr IV EDNOW ONE PRN Reason: Protocol Stop: 05/27/17 12:25 Last Admin: 05/27/17 12:27 Dose: 50 mls Sodium Chloride (Ns) 1,000 mls @ 3,000 mls/hr IV ONCE ONE Stop: 05/27/17 15:54 Last Admin: 05/27/17 17:01 Dose: 1,000 mls Sodium Chloride (Ns) 1,000 mls @ 100 mls/hr IV CONT FRANCESCA Stop: 11/23/17 15:44 Last Admin: 05/28/17 17:29 Dose: 1,000 mls Departure - Departure Disposition: [facility] Inpatient Acute Clinical Impression: UTI (urinary tract infection) Qualifiers: Urinary tract infection type: site unspecified Hematuria presence: with hematuria Qualified Code(s): N39.0 - Urinary tract infection, site not specified Bladder cancer Qualifiers: Bladder location: unspecified site Qualified Code(s): C67.9 - Malignant neoplasm of bladder, unspecified Condition: Good Report Scribed for: Cindy Lee Report Scribed by: Katie Xie Date of Report: 05/27/17 Time of Report: 11:42 Physician Review and Approval Statement: 05/27/17 11:42 Portions of this note were transcribed by a medical psychotherapist. I personally performed the history, physical exam, and medical decision-making; and confirmed the accuracy of the information in the transcribed note.
[2017-05-27 11:40] LABS: COLOR AMBER; LEUKOCYTE ESTERASE,URINE 3+ (NEGATIVE); NITRITE,URINE POSITIVE (NEGATIVE)
[2017-05-27] MEDS ORDERED: NS 1,000 ML IV ONE ×2 (11:47→15:35)
[2017-05-27 11:48] LABS: BACTERIA 2+ /hpf (NONE SEEN); MUCUS 2+ /lpf (NONE-1+); RBC,URINE 15-25 /hpf (0-3); WBC,URINE 50-182 /hpf (0-3)
--- NOTE | 2017-05-27 12:15 | CPEKG ---
Heart Rate: 69 RR Interval: 870 P-R Interval: 144 QRSD Interval: 106 QT Interval: 384 QTC Interval: 412 P [place]: 0 QRS [place]: 79 T Wave [place]: 74 EKG Severity - NORMAL ECG - EKG Impression: SINUS RHYTHM Electronically Signed By: Cindy Lee 27-May-2017 14:46:59
[2017-05-27 13:22] LABS: % IMMATURE GRANULYOCYTES 1.4 % (0.0-1.1); ABSOLUTE IMMATURE GRANULOCYTES 0.18 10^3/uL (0.00-0.10); ADD DIFF? NO; ADD MORPH? NO; ADD SCAN? YES; ATYPICAL LYMPHOCYTE FLAG 0 (0-99); FRAGMENT RBC FLAG 0 (0-99); HEMATOCRIT 43.9 % (40.0-51.0); HEMOGLOBIN 14.9 g/dL (13.7-17.5); LEFT SHIFT FLG 10 (0-99); LIPEMIA HEMOLYSIS FLAG 90 (0-99); MEAN CELL HEMOGLOBIN CONCENTR. 33.9 g/dL (32.4-36.7); MEAN CELL VOLUME 85.4 fL (81.5-99.8); MEAN PLATELET VOLUME 10.2 fL (8.7-11.7); PLATELET COUNT 159 10^3/uL (150-400); RED BLOOD CELL COUNT 5.14 10^6/uL (4.40-6.38); RED CELL DISTRIBUTION WIDTH 14.1 % (11.5-15.2)
[2017-05-27 13:35] LABS: ANION GAP 14 mEq/L (8-16); CALCIUM 9.5 mg/dL (8.5-10.4); CARBON DIOXIDE 21 mEq/l (22-31); CHLORIDE 99 mEq/L (97-110); CREATININE 1.1 mg/dL (0.7-1.3); GLOMERULAR FILTRATION RATE > 60; GLUCOSE 94 mg/dL (70-100); POTASSIUM 5.1 mEq/L (3.5-5.2); SODIUM 134 mEq/L (134-144)
[2017-05-27 13:59] LABS: PLATELET CLUMPS FLAG 190 (0-99)
[2017-05-27 14:02] LABS: SCAN NEGATIVE
[2017-05-27] MEDS ORDERED: ONDANSETRON DISINTEGRATING 4 MG TAB PO PRN (14:28)
[2017-05-27] MEDS ORDERED: ONDANSETRON 4 MG/2 ML VIAL IVP PRN (14:28)
[2017-05-27] MEDS ORDERED: valACYclovir 500 MG TAB PO PRN (14:32)
[2017-05-27] MEDS ORDERED: FLUTICASONE NASAL 120 SPRAYS/16 GM MDI EACHNARE PRN (14:32)
[2017-05-27] MEDS: ACETAMINOPHEN 325 MG TAB PO PRN ×2 (15:24→21:12)
--- NOTE | 2017-05-27 16:22 | GHP ---
[f rep st] HISTORY AND PHYSICAL DATE OF ADMISSION: 05/27/2017 CHIEF COMPLAINT: Fevers, chills. HISTORY OF PRESENT ILLNESS: An 82-year-old male with a history of atrial fibrillation and stroke wi th recent diagnosis of bladder cancer status post bladder cancer resection surgery by Dr. Hong And luh at [facility] on 05/14/2017. The patient was discharged from that hospitalization and pe r the 's report, has had many complications since; first of which included a bad reaction to a s ulfa-based antibiotic. Patient was then not treated with additional antibiotics after his reaction; started instead on Pyridium and VESIcare. The patient developed subjective fevers and chills over the course of 72 hours prior to presentation with abdominal discomfort urinary frequency with urinat ion 10-15 times in the evening prior to presentation. The patient then developed anorexia and nause a. No vomiting. Denies any diarrhea. Denies any hematuria denies any vision changes, headache, ch est pain, or shortness of breath. describes the patient as being quite functional typically wi th excellent appetite. The patient did develop some mild cognitive dysfunction after stroke. She s ays his mental status has been markedly worse since arriving to the hospital today. She is noting m ore lethargy, confusion, and inability to track conversation. PAST MEDICAL HISTORY: 1. New diagnosis bladder cancer status post surgical resection on 05/14/2017. 2. History of colon cancer status post resection radiation and chemotherapy. 3. Atrial fibrillation on Pradaxa. 4. History of a CVA with minimal residual deficits besides cognitive. 5. Mild cognitive impairment. 6. History of a lower GI bleed secondary to diverticula. 7. Depression. 8. Hypertension. 9. Obstructive sleep apnea, on CPAP. 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 Does not smoke. Does not use marijuana or il licit drugs. Enjoys a scotch in the evenings. FAMILY HISTORY: Unknown, patient was raised in an orphanage. REVIEW OF SYSTEMS: A 10-point review of systems is negative with the exception of that reported in the HPI. ADVANCED DIRECTIVES: Patient is full cor, full tube while hospitalized. His is his medical de cision maker. REVIEW OF SYSTEMS: A 10-point review of systems is negative with the exception of that reported in the HPI. PHYSICAL EXAMINATION: VITAL SIGNS: Blood pressure 154/69, heart rate 69, respiratory rate 18, 91% on room air. GENERAL: This is a healthy-appearing elderly male, sitting up in bed. HEENT: Notabl e for dentures and dry mucous membranes. Eye exam is negative for any icterus. CARDIAC EXAM: Aliyah ent is regular rate and rhythm. PULMONARY: Good respiratory effort. Clear to auscultation bilater ally. GASTROINTESTINAL: Positive bowel sounds. ABDOMEN: Soft. The patient is tender to palpatio n in the bilateral lower quadrants. MUSCULOSKELETAL: Negative for any lower extremity edema. SKIN : Exam is negative for any rashes. NEUROLOGIC: The patient is alert and oriented to person and pl howie. He is slow in answering questions. Unable to finish multi-step tasks in my exam. Sensation i s intact throughout and strength is intact throughout. PSYCHIATRIC: He is pleasant and cooperative on interview and examination. DATA: EKG, which I personally reviewed and interpreted, shows sinus rhythm, normal axis, normal int ervals, with no acute ST-T changes. White count is 12.4, baselines appear closer to 3 or 4; hematoc rit 43.9, most recently checked baselines in the low 30s; platelet count of 159. Sodium 134, creati nine 1.1 (baseline appears to be 0.9). BUN 20. Anion gap of 14. Urinalysis shows 1+ protein, 2+ b lood, positive nitrates, 15-25 red blood cells, 50-182 white cells with 3+ leuk esterase. ASSESSMENT AND PLAN: 1. This is an 82-year-old male presenting with acute pyelonephritis. The patient is status post re cent bladder tumor resection presenting with frequency, subjective fevers, chills, and encephalopath y. The patient is receiving IV ceftriaxone in the emergency department. Urine culture has been sen t. Will order blood cultures in addition. Can await urine cultures to contour antibiotic therapy. 2. Acute encephalopathy presumed secondary to acute infection. Will fluid resuscitate with normal saline. Treat with empiric IV ceftriaxone and follow the patient's clinical progression item. 3. Acute leukocytosis secondary to pyelonephritis. Will await urine cultures and treat empirically with ceftriaxone. 4. Atrial fibrillation. Patient will be continued on Eliquis. He is currently rate controlled, no t on any rate control medications. Again, will fluid resuscitate and follow his vial signs. 5. Hypertension. Patient's blood pressures are stable. I will hold his losartan this evening simp ly for secondary to concern that he could become more unstable and hypotensive overnight. If he rem ains borderline hypertensive, can reinitiate his home losartan in the morning. 6. Acute kidney injury presumed secondary to hypovolemia. Again, holding on patient's ARB loconidaryl t. Can follow his renal function post fluid resuscitation. 7. Hyperlipidemia. We will continue his statin therapy. 8. New diagnosis bladder cancer. The patient has not been evaluated by Oncology yet. Have consult ed the [facility] on-call for consultation and guidance related to options for adjuvant chemotherapy with his new bladder cancer diagnosis. 9. Prophylaxis. Patient is on Eliquis. 10. Diet: Regular as tolerated with nourishment. DISPOSITION: I expect greater than 2 midnights. The patient is presenting with acute encephalopath y and pyelonephritis. Will require aggressive fluid resuscitation, IV antibiotics, and monitoring. I have discussed the case with the emergency room physician. Patient will be admitted to the medic al-surgical floor for care. /[id number]/MODL
[2017-05-27] MEDS: NS 1,000 ML IV SCH (18:37)
--- NOTE | 2017-05-27 19:11 | GCON ---
[f rep st] CONSULTATION ONCOLOGY CONSULTATION REASON FOR CONSULTATION: Bladder cancer. HISTORY OF PRESENT ILLNESS: The patient is an 82-year-old gentleman with a current history of atria l fibrillation, a previous history of a stroke. He was brought into the hospital with subjective fe vers and chills over the last 72 hours, and associated abdominal discomfort and urinary frequency. He has not had any appetite. He has had some nausea, but no vomiting. He denies any hematuria rece ntly. He is somewhat confused, so much of the information is from the records, and I also spoke to his , as well as to Dr. Escamilla. He was recently diagnosed with a non-muscle invasive bladder cancer, and underwent surgical resectio n on May 14, 2017. The next day, he received intravesicular mitomycin. According Dr. Escamilla, he was deciding between just close monitoring versus BCG therapies, but according to the , she was told that he needs BCG therapy for a year. She is looking to get a second opinion. ALLERGIES: He has an allergy to amiodarone, hydromorphone, and sulfa. MEDICATIONS: At home include bupropion, apixaban, Tylenol, valacyclovir, pravastatin, losartan, [place]-3 fatty acid, fludrocortisone, cholecalciferol, PreserVision, prednisolone acetate into his left eye. PAST MEDICAL HISTORY: Chronic illnesses include: 1. The bladder cancer, as per HPI, in that it is non-muscle invasive, but high-grade tumor. I susi andrea, because it was involving the lamina propria, it is T1, NX, MX. 2. Remote history of colon cancer, but I do not have any details on this. 3. Atrial fibrillation, currently on Eliquis. 4. History of CVA. 5. Depression. 6. Hypertension. 7. Obstructive sleep apnea. SURGICAL HISTORY: Includes a bladder cancer resection, colon cancer resection. SOCIAL HISTORY: He is . Does not smoke or use illicit drugs. Has a drink every day. FAMILY HISTORY: The patient was raised in an orphanage. REVIEW OF SYSTEMS: A 10-point review of system is difficult to obtain, mostly from the chart, but t he patient denies any pain or hematuria. Pertinent positives as in HPI, otherwise negative. PHYSICAL EXAM: VITAL SIGNS: Temperature on arrival is 36.5, pulse 101, blood pressure is 119/93. He did have a temperature to 38 this afternoon, it is currently 37.9. GENERAL: He was confused, bu t awake and alert. CARDIAC: Mildly tachycardic, but regular. LUNGS: Clear. ABDOMEN: Soft. No organomegaly. Mildly tender in the lower quadrants. NEUROLOGIC: A little bit disoriented to place , but answers questions and is clearly aware of the situation. He is very pleasant and cooperative. LABORATORY DATA: White count is 12,500, hemoglobin and platelet count are normal. On the different ial, he is left-shifted. Chemistries: His creatinine is 1.1, otherwise unremarkable. UA showed po sitive nitrites, 2+ blood, and 2+ bacteria. Microbiology is pending. IMPRESSION: 1. Stage I (T1, NX, MX) non-muscle invasive bladder cancer. 2. Probable urosepsis. Generally, superficial bladder cancers are managed by the urologist. General procedure is transuret hral resection, and either close observation or followed by adjuvant therapy such as BCG. If they k eep having recurrences, then cystectomy could be considered as well. His had concerns, and wan evelio a second opinion, which is reasonable. I told her that generally, our service, as Oncology, love s not get involved with his level of bladder cancer, and there is no role for radiation or systemic chemotherapy. I will be available for questions. We will check on him again while he is in the [facility]. /[id number]/MODL
[2017-05-27] MEDS: PRESERVISION AREDS2 FORMULA EYE VIT 1 EACH PO SCH (20:18)
[2017-05-27] MEDS: APIXABAN 2.5 MG TAB PO SCH (20:19)
[2017-05-28] MEDS: NS 1,000 ML IV SCH ×2 (03:41→17:29)
[2017-05-28] MEDS: ACETAMINOPHEN 325 MG TAB PO PRN (03:51)
[2017-05-28] MEDS ORDERED: cefTRIAXone 1 GM in D5W 50 ML IV SCH (09:00)
[2017-05-28] MEDS: CHOLECALCIFEROL VIT D3 1,000 UNITS TAB PO SCH (09:13)
[2017-05-28] MEDS: PRAVASTATIN SODIUM 20 MG TAB PO SCH (09:13)
[2017-05-28] MEDS: VITAMIN B COMPLEX 1 EA CAP/TAB PO SCH (09:13)
[2017-05-28] MEDS: prednisoLONE ACET 1% 5 ML OPHT.BTL LEFTEYE SCH (09:14)
[2017-05-28] MEDS: OMEGA-3 FATTY ACIDS 1,000 MG CAP PO SCH (09:14)
[2017-05-28] MEDS: buPROPion SR 100 MG TAB PO SCH (09:14)
[2017-05-28] MEDS: APIXABAN 2.5 MG TAB PO SCH ×2 (09:14→19:58)
--- NOTE | 2017-05-28 12:06 | HOSPPROG ---
Hospitalist Progress Note Assessment/Plan: Pyelonephritis - Pt feels a bit better. UCx growing GNR's. BCx pending. Trend wbc, still awaiting repeat today. Cont Ceftriaxone. Stage 1 bladder cancer s/p resection - outpt f/u with urology. appreciate onc input. A fib - rate controlled, not on AV danie blockers. Cont Eliquis for CVA prevention. Hypertension - BP's stable today, fair control. Cont to hold Losartan and resume when indicated. Hyperkalemia - K 5.1 yesterday, ARB held. Will recheck today. Full code Dispo - cont inpt DVT PPLX - on Eliquis Subjective: Pt feels better, no more dysuria. No fevers. No N/V. Objective: Vital Signs Temp Pulse Resp BP Pulse Ox 36.7 C 59 L 18 130/69 H 94 05/28/17 09:21 05/28/17 09:21 05/28/17 09:21 05/28/17 09:21 05/28/17 10:49 Laboratory Results 05/27/17 13:08 05/27/17 13:08 05/27/17 05/28/17 05/29/17 05:59 05:59 05:59 Intake Total 2500 1689 Output Total 600 Balance 1900 1689 - Physical Exam Constitutional: no apparent distress Eyes: PERRL Ears, Nose, Mouth, Throat: moist mucous membranes Cardiovascular: regular rate and rhythym Respiratory: no respiratory distress, clear to auscultation Gastrointestinal: normoactive bowel sounds, soft, non-tender abdomen Skin: warm Musculoskeletal: full muscle strength Neurologic: AAOx3 Psychiatric: interacting appropriately ICD10 Worksheet Patient Problems: Problems Problem Status Onset Bladder cancer Acute UTI (urinary tract infection) Acute Bronchitis Acute Chronic Disease Mgmt/Transitional Care Acute Dehydration Acute GIB (gastrointestinal bleeding) Acute Intoxication Acute Pneumonia Acute
[2017-05-28 12:33] LABS: % IMMATURE GRANULYOCYTES 2.5 % (0.0-1.1); ABSOLUTE IMMATURE GRANULOCYTES 0.27 10^3/uL (0.00-0.10); ADD DIFF? NO; ADD MORPH? NO; ADD SCAN? NO; ATYPICAL LYMPHOCYTE FLAG 0 (0-99); FRAGMENT RBC FLAG 0 (0-99); HEMATOCRIT 42.9 % (40.0-51.0); HEMOGLOBIN 14.4 g/dL (13.7-17.5); LEFT SHIFT FLG 80 (0-99); LIPEMIA HEMOLYSIS FLAG 80 (0-99); MEAN CELL HEMOGLOBIN CONCENTR. 33.6 g/dL (32.4-36.7); MEAN CELL VOLUME 86.3 fL (81.5-99.8); MEAN PLATELET VOLUME 10.5 fL (8.7-11.7); PLATELET CLUMPS FLAG 0 (0-99); PLATELET COUNT 172 10^3/uL (150-400); RED BLOOD CELL COUNT 4.97 10^6/uL (4.40-6.38); RED CELL DISTRIBUTION WIDTH 14.2 % (11.5-15.2)
[2017-05-28 12:36] LABS: ANION GAP 12 mEq/L (8-16); CALCIUM 8.6 mg/dL (8.5-10.4); CARBON DIOXIDE 19 mEq/l (22-31); CHLORIDE 103 mEq/L (97-110); CREATININE 1.1 mg/dL (0.7-1.3); GLOMERULAR FILTRATION RATE > 60; GLUCOSE 102 mg/dL (70-100); POTASSIUM 4.2 mEq/L (3.5-5.2); SODIUM 134 mEq/L (134-144)
[2017-05-28 16:50] VITALS: RESP 16
[2017-05-28] MEDS: PRESERVISION AREDS2 FORMULA EYE VIT 1 EACH PO SCH (19:59)
[2017-05-29 05:17] LABS: % IMMATURE GRANULYOCYTES 1.4 % (0.0-1.1); ABSOLUTE IMMATURE GRANULOCYTES 0.09 10^3/uL (0.00-0.10); ADD DIFF? NO; ADD MORPH? NO; ADD SCAN? NO; ATYPICAL LYMPHOCYTE FLAG 0 (0-99); FRAGMENT RBC FLAG 0 (0-99); HEMATOCRIT 38.4 % (40.0-51.0); LEFT SHIFT FLG 10 (0-99); LIPEMIA HEMOLYSIS FLAG 90 (0-99); MEAN CELL HEMOGLOBIN CONCENTR. 33.9 g/dL (32.4-36.7); MEAN CELL VOLUME 85.7 fL (81.5-99.8); MEAN PLATELET VOLUME 10.2 fL (8.7-11.7); PLATELET CLUMPS FLAG 20 (0-99); PLATELET COUNT 152 10^3/uL (150-400); RED BLOOD CELL COUNT 4.48 10^6/uL (4.40-6.38); RED CELL DISTRIBUTION WIDTH 13.8 % (11.5-15.2)
[2017-05-29 05:27] LABS: ANION GAP 8 mEq/L (8-16); CALCIUM 8.7 mg/dL (8.5-10.4); CARBON DIOXIDE 19 mEq/l (22-31); CHLORIDE 107 mEq/L (97-110); CREATININE 1.1 mg/dL (0.7-1.3); GLOMERULAR FILTRATION RATE > 60; GLUCOSE 98 mg/dL (70-100); POTASSIUM 3.9 mEq/L (3.5-5.2); SODIUM 134 mEq/L (134-144)
[2017-05-29 07:18] VITALS: BP 115/79; PULSE 59; TEMP 97.2; O2SAT 90
[2017-05-29] MEDS: buPROPion SR 100 MG TAB PO SCH (09:16)
[2017-05-29] MEDS: PRAVASTATIN SODIUM 20 MG TAB PO SCH (09:16)
[2017-05-29] MEDS: VITAMIN B COMPLEX 1 EA CAP/TAB PO SCH (09:16)
[2017-05-29] MEDS: CHOLECALCIFEROL VIT D3 1,000 UNITS TAB PO SCH (09:16)
[2017-05-29] MEDS: OMEGA-3 FATTY ACIDS 1,000 MG CAP PO SCH (09:16)
[2017-05-29] MEDS: APIXABAN 2.5 MG TAB PO SCH (09:16)
[2017-05-29] MEDS: prednisoLONE ACET 1% 5 ML OPHT.BTL LEFTEYE SCH (09:17)
--- NOTE | 2017-05-29 14:17 | PDIAF ---
- Diagnosis Diagnosis: pyelonephritis, bladder cancer Code Status: Full Code - Medication Management Discharge Medications: Medications to Continue on Transfer Valacyclovir HCl [Valacyclovir] 1,000 mg PO BID PRN 11/09/15 [Last Taken Unknown ] C/E/Zn/Cu/OM3/DHA/EPA/LUT/ZEAX [Preservision Areds 2 Softgel] 1 each PO HS 11/25 [Last Taken 05/26/17] Losartan Potassium [Cozaar 50 mg (*)] 100 mg PO HS 11/25/16 [Last Taken 05/26/17 ] [place]-3 Fatty Acids [Fish Oil 1000 mg (*)] 1,000 mg PO DAILY 11/25/16 [Last Taken 05/27/17] Pravastatin Sodium 20 mg PO DAILY 11/25/16 [Last Taken 05/27/17] Acetaminophen [Tylenol 325mg (*)] 650 mg PO PRN PRN 11/29/16 [Last Taken 07:30] Cholecalciferol Vit D3 [Vitamin D3 (*)] 1,000 units PO DAILY 11/29/16 [Last Taken 05/27/17] Fluticasone Nasal [Flonase Nasal [place]] 1 sprays EACHNARE DAILY PRN 11/29/16 [ Last Taken 11/29/16] Vit B Comp/C/FA/Iron/Vit E [Vitamin B Complex Tablet] 1 each PO DAILY 11/29/16 [ Last Taken 05/27/17] prednisoLONE ACET 1% [Pred Forte 1% (*)] 1 drop LEFTEYE DAILY 11/29/16 [Last Taken 05/27/17] Apixaban [Eliquis] 2.5 mg PO BID 05/27/17 [Last Taken 05/27/17] buPROPion SR [Wellbutrin 100mg SR (*)] 100 mg PO DAILY 05/27/17 [Last Taken ] levOFLOXACIN [levAQUIN (*)] 750 mg PO DAILY #10 tab 05/29/17 [Last Taken Unknown ] Discharge Medications: Refer to the Discharge Home Medication list for PRN reason. - Orders Services needed: Home Care, Registered Nurse, Master Medicine Worker, Physical Therapy, Occupational Therapy Home Care Face to Face: I certify that this patient was under my care and that I had the required [id number] encounter meeting the encounter requirements on the discharge day. My findings support the fact that the patient is homebound as defined in CMS Chapter 7 Medicare Benefits Manual 30.1.1, The condition of the patient is such that there exists a normal inability to leave home and consequently, leaving home would require a considerable and taxing effort. Diet Recommendation: no restrictions on diet - Follow Up Care Current Providers and Referrals: Rebeka Campbell [Primary Care Provider] - As per Instructions
--- NOTE | 2017-05-29 14:43 | SOAPPROG ---
[facility] Progress Note Assessment/Plan: E&M for bladder cancer * Stage I (T1) Bladder cancer: recently underwent resection by Dr. Escamilla who recommended close observation vs. adjuvant BCG. His told me she is looking to get a second opinion probably with Dr. Harper. It isn't necessary for him to follow up with Oncology for this as Urology does all of the follow up and treatment. We get involved if it recurs more extensively. * Remote h/o colon ca 1991 s/p resection, radiation, and adjuvant chemotherapy: Has been cured and no need to follow up. I will sign off and he doesn't need to make a follow up with us but we will be available for questions. Subjective: Feeling better and going home perhaps today. Objective: Vital Signs Temp Pulse Resp BP Pulse Ox 36.2 C 59 L 16 115/79 90 L 05/29/17 07:14 05/29/17 07:14 05/29/17 07:14 05/29/17 07:14 05/29/17 07:14 Laboratory Results 05/29/17 04:53 05/29/17 04:53 05/28/17 05/29/17 05/30/17 05:59 05:59 05:59 Intake Total 2500 3143 Output Total 600 550 Balance 1900 2593 Physical Exam - Physical Exam General Appearance: no apparent distress ICD10 Worksheet Patient Problems: Problems Problem Status Onset Bladder cancer Acute UTI (urinary tract infection) Acute Bronchitis Acute Chronic Disease Mgmt/Transitional Care Acute Dehydration Acute GIB (gastrointestinal bleeding) Acute Intoxication Acute Pneumonia Acute
--- NOTE | 2017-05-29 18:13 | GDS ---
[f rep st] DISCHARGE SUMMARY DISCHARGE DIAGNOSES: 1. Acute pyelonephritis secondary to Enterobacter. 2. Acute encephalopathy, resolved. 3. Stage I bladder cancer, status post resection. 4. Atrial fibrillation, rate controlled. 5. Chronic anticoagulation. 6. Hypertension, well controlled. CONSULTANTS: Dr. Sara De Los Santos, Oncology. HISTORY: For details, please see dictated History and Physical dated May 27, 2017. In brief, the patient is an 82-year-old male, with a history of atrial fibrillation and previous stroke who was re cently diagnosed with bladder cancer and underwent a resection by Dr. Maru Escamilla, at [facility] on May 14, 2017. Several days prior to admission, he developed fevers and chills with uri nary frequency, and was brought to the emergency department. He was found to have a urinary tract i nfection and was admitted hospital for presumed pyelonephritis. HOSPITAL COURSE: Patient admitted to the medical-surgical unit. He was started on IV ceftriaxone. Blood cultures were sent and have been negative to date. Urine culture grew Enterobacter sensitive to ceftriaxone as well as Levaquin. He remained hemodynamically stable. His white blood cell coun t normalized. He has been afebrile for 36 hours prior to discharge. Although he presented with enc ephalopathic changes secondary to infection, his mentation has cleared and seems to have returned ba ck to baseline. It sounds like, from his , he does have some baseline cognitive deficits. He w as evaluated by Physical therapy and Occupational therapy, and group home facility was consider ed; however, the patient was firm that he was not interested in going to rehab. DISPOSITION: Patient is discharged home with home health services planned. FOLLOWUP: 1. Dr. Miguelito Harper, Urology. 2. Dr. Rebeka Campbell, Primary Care. DISCHARGE MEDICATIONS: Please see [facility] for complete updated outpatient medication list. He yair l continue all outpatient medications as prescribed. New medication at discharge includes Levaquin 750 mg p.o. daily, #10, no refills. /[id number]/MODL
== END 2017-05-29 16:11 | disposition home health service (06) | DRG 689 ==
LOC: F1N 14:13
PROVIDERS: ADMIT Hospitalist; ATTEND Hospitalist
DX: N10 Acute pyelonephritis (principal); B96.89 Other specified bacterial agents as the cause of diseases classified elsewhere; G93.40 Encephalopathy, unspecified; C67.9 Malignant neoplasm of bladder, unspecified; I48.91 Unspecified atrial fibrillation; I10 Essential (primary) hypertension; F32.9 Major depressive disorder, single episode, unspecified; I69.319 Unspecified symptoms and signs involving cognitive functions following cerebral infarction; Z79.01 Long term (current) use of anticoagulants
CPT/HCPCS: 96365; 97116-GP; 97161-GP; 97166-GO; 97535-GO; G8978-GP-CJ; G8979-GP-CI; G8987-GO-CK; G8988-GO-CI; G8989-GO-CI; J0696

== ENCOUNTER 2017-06-15 20:20 | Inpatient (IN) | payer OTHER, MEDICARE ==
--- NOTE | 2017-06-15 20:58 | EDPHY ---
H & P Stated Complaint: FEVER, WEAKNESS HPI/ROS: HPI CHIEF COMPLAINT: Fever, generalized weakness, dysuria, urinary frequency HISTORY OF PRESENT ILLNESS: This patient 82-year-old male, significant past medical history for AFib, hypertension, encephalopathy, bladder cancer, urinary tract infection, pneumonia, presents emergency room with 2 days of generalized weakness and a home temperature 101 degrees. reports that he is more confused, generalized weakness, having urinary frequency and dysuria. She is concerned that he may have a another urinary tract infection. She reports recently that the patient was on Levaquin completed a 10 day course of this for I recent urinary tract infection. Past Medical History: Bladder cancer, UTI, encephalopathy, AFib, hypertension. Past Surgical History: Bladder surgery Social History: Denies daily use of drugs alcohol tobacco products Family History: Noncontributory ROS REVIEW OF SYSTEMS: A comprehensive 10 point review of systems is otherwise negative aside from elements mentioned in the history of present illness. Exam Constitutional appears nontoxic triage nursing summary reviewed, vital signs reviewed, awake/alert. Eyes normal conjunctivae and sclera, EOMI, PERRLA. HENT normal inspection, atraumatic, moist mucus membranes, no epistaxis, neck supple/ no meningismus, no raccoon eyes. Respiratory clear to auscultation bilaterally, normal breath sounds, no respiratory distress, no wheezing. Cardiovascular rate normal, regular rhythm, no murmur, no edema, distal pulses normal. Gastrointestinal soft, non-tender, no rebound, no guarding, normal bowel sounds, no distension, no pulsatile mass. Genitourinary no CVA tenderness. Musculoskeletal no midline vertebral tenderness, full range of motion, no calf swelling, no tenderness of extremities, no meningismus, good pulses, neurovascularly intact. Skin pink, warm, & dry, no rash, skin atraumatic. Neurologic awake, alert and oriented x 3, AAOx3, moves all 4 extremities equally, motor intact, sensory intact, CN II-XII intact, normal cerebellar, normal vision, normal speech. Psychiatric normal mood/affect. Heme/Lymph/Immune no lymphadenopathy. Differential Diagnosis: Includes but is not limited to in a particular order, sepsis, infection, dehydration, electrolyte abnormality, urinary tract infection , pneumonia Medical Decision Making: Plan for this patient IV establishment, check blood work, check urinalysis, IV fluid bolus, lactic acid. Blood cultures. Re-evaluation: 2247: Patient's urinalysis indicating this patient has UTI. I have ordered a urine culture. Blood cultures have already been ordered. IV Rocephin ordered. Patient hemodynamically stable. Patient need to be admitted to the hospitalist service for generalized weakness, UTI and confusion. Most likely cause of confusion is UTI. 2255: Spoke with Dr. Torres agrees to admit this patient. Reason for admission generalized weakness, UTI, altered mental status. IV Rocephin has been ordered. Urine culture pending. Source: Patient - Personal History Current Tetanus Diphtheria and Acellular Pertussis (TDAP): Unsure Tetanus Vaccine Date: longer than 10yrs ago - Medical/Surgical History Hx Asthma: No Hx Chronic Respiratory Disease: No Hx Diabetes: No Hx Cardiac Disease: No Hx Renal Disease: No Hx Cirrhosis: No Hx Alcoholism: Yes Hx HIV/AIDS: No Hx Splenectomy or Spleen Trauma: No Other PMH: HTN, AFIB, COLON CA, SLEEP APNEA, DEPRESSION, CVA, TIA,BLADDER CA-W/ SURGERY - Social History Smoking Status: Never smoked Constitutional: Initial Vital Signs Temperature (C) 36.9 C 06/15/17 20:28 Heart Rate 82 06/15/17 20:28 Respiratory Rate 18 06/15/17 20:28 Blood Pressure 115/75 06/15/17 20:28 O2 Sat (%) 91 L 06/15/17 20:28 O2 Delivery Mode Room Air O2 (L/minute) 2 Allergies/Adverse Reactions: amiodarone [Amiodarone] Allergy (Unknown, Verified 06/15/17 20:24) Other-Enter Comments hydromorphone HCl [From Dilaudid] Allergy (Unknown, Verified 06/15/17 20:24) Other-Enter Comments Sulfa (Sulfonamide Antibiotics) Allergy (Verified 06/15/17 20:24) Other-Enter Comments Home Medications: Medication Instructions Recorded C/E/Zn/Cu/OM3/DHA/EPA/LUT/ZEAX 1 each PO DAILY 11/25/16 [Preservision Areds 2 Softgel] Losartan Potassium [Cozaar 50 mg 100 mg PO HS 11/25/16 (*)] Pravastatin Sodium 20 mg PO DAILY 11/25/16 Cholecalciferol Vit D3 [Vitamin D3 1,000 units PO DAILY@17 11/29/16 (*)] Fluticasone Nasal [Flonase Nasal 1 sprays EACHNARE DAILY PRN 11/29/16 [place]] Vit B Comp/C/FA/Iron/Vit E 1 each PO DAILY 11/29/16 [Vitamin B Complex Tablet] Apixaban [Eliquis] 2.5 mg PO BID 05/27/17 buPROPion SR [Wellbutrin 100mg SR 100 mg PO DAILY 05/27/17 (*)] Medical Decision Making - Data Points Laboratory Results: Laboratory Results 06/15/17 21:10 06/15/17 21:10 Medications Given: Discontinued Medications Sodium Chloride (Ns) 1,000 mls @ 0 mls/hr IV EDNOW ONE; Wide Open PRN Reason: Protocol Stop: 06/15/17 21:08 Last Admin: 06/15/17 21:29 Dose: 1,000 mls Ceftriaxone Sodium/Dextrose (Rocephin 1 Gm (Premix)) 50 mls @ 100 mls/hr IV EDNOW ONE PRN Reason: Protocol Stop: 06/15/17 23:16 Last Admin: 06/15/17 22:54 Dose: 50 mls Departure - Departure Disposition: [facility] Inpatient Acute Clinical Impression: Generalized weakness UTI (urinary tract infection) Qualifiers: Urinary tract infection type: acute cystitis Hematuria presence: with hematuria Qualified Code(s): N30.01 - Acute cystitis with hematuria Condition: Fair
[2017-06-15] MEDS ORDERED: NS 1,000 ML IV ONE (21:07)
[2017-06-15 21:36] LABS: ALANINE AMINOTRANSFERASE 27 IU/L (21-72); ALBUMIN 4.2 g/dL (3.5-5.0); ALKALINE PHOSPHATASE 76 IU/L (38-126); ANION GAP 14 mEq/L (8-16); ASPARTATE AMINOTRANSFERASE 21 IU/L (17-59); BILIRUBIN,TOTAL 1.6 mg/dL (0.1-1.4); BILIRUBIN-CONJUGATED 0.3 mg/dL (0.0-0.5); BILIRUBIN-UNCONJUGATED 1.3 mg/dL (0.0-1.1); CALCIUM 9.8 mg/dL (8.5-10.4); CARBON DIOXIDE 19 mEq/l (22-31); CHLORIDE 103 mEq/L (97-110); CREATININE 1.1 mg/dL (0.7-1.3); GLOMERULAR FILTRATION RATE > 60; GLUCOSE 120 mg/dL (70-100); POTASSIUM 4.2 mEq/L (3.5-5.2); SODIUM 136 mEq/L (134-144); TOTAL PROTEIN 7.1 g/dL (6.3-8.2)
[2017-06-15 21:37] LABS: % IMMATURE GRANULYOCYTES 0.4 % (0.0-1.1); ABSOLUTE IMMATURE GRANULOCYTES 0.03 10^3/uL (0.00-0.10); ADD DIFF? NO; ADD MORPH? NO; ADD SCAN? NO; ATYPICAL LYMPHOCYTE FLAG 0 (0-99); FRAGMENT RBC FLAG 0 (0-99); HEMATOCRIT 45.6 % (40.0-51.0); HEMOGLOBIN 15.2 g/dL (13.7-17.5); LEFT SHIFT FLG 10 (0-99); LIPEMIA HEMOLYSIS FLAG 80 (0-99); MEAN CELL HEMOGLOBIN 28.3 pg (27.9-34.1); MEAN CELL HEMOGLOBIN CONCENTR. 33.3 g/dL (32.4-36.7); MEAN CELL VOLUME 84.8 fL (81.5-99.8); MEAN PLATELET VOLUME 10.2 fL (8.7-11.7); PLATELET CLUMPS FLAG 0 (0-99); PLATELET COUNT 131 10^3/uL (150-400); RED BLOOD CELL COUNT 5.38 10^6/uL (4.40-6.38); RED CELL DISTRIBUTION WIDTH 14.6 % (11.5-15.2)
[2017-06-15 21:41] LABS: INR 1.34 (0.83-1.16); PROTIME(PATIENT) 16.6 SEC (12.0-15.0)
[2017-06-15 21:42] LABS: APTT 30.9 SEC (23.0-38.0)
[2017-06-15 22:39] LABS: COLOR AMBER; LEUKOCYTE ESTERASE,URINE 3+ (NEGATIVE); NITRITE,URINE NEGATIVE (NEGATIVE)
[2017-06-15 22:49] LABS: BACTERIA 3+ /hpf (NONE SEEN); MUCUS TRACE /lpf (NONE-1+); RBC,URINE 50-182 /hpf (0-3); WBC,URINE 50-182 /hpf (0-3)
[2017-06-16] MEDS ORDERED: FLUTICASONE NASAL 120 SPRAYS/16 GM MDI EACHNARE PRN
[2017-06-16] MEDS ORDERED: ONDANSETRON DISINTEGRATING 4 MG TAB PO PRN (00:01)
[2017-06-16] MEDS ORDERED: ONDANSETRON 4 MG/2 ML VIAL IVP PRN (00:01)
[2017-06-16] MEDS ORDERED: ACETAMINOPHEN 325 MG TAB PO PRN (00:01)
--- NOTE | 2017-06-16 03:20 | GHP ---
[f rep st] HISTORY AND PHYSICAL DATE OF ADMISSION: 06/15/2017 CHIEF COMPLAINT: Confusion and fever. HISTORY OF PRESENT ILLNESS: This is an 82-year-old man with a history of bladder cancer, stage I, s tatus post cystoscopic resection in April, as well as an admission here at the end of April for a urin rosalind tract infection due to Enterobacter, and presents with fever. His took his temperature tod ay, found that he was 101. Per the ER report, he was also somewhat confused. When I am seeing him, he is not accompanied by anyone and is able to provide a reasonable history to me. He has not had any dysuria. He has had some frequency. He has not had any hematuria. He does complain of cough. PAST MEDICAL/SURGICAL HISTORY: 1. Bladder cancer, status post resection in January. 2. Atrial fibrillation, on Eliquis. 3. Hypertension. 4. Colon cancer, status post chemo and XRT. 5. 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 6. Lower GI bleed due to diverticulosis. 7. Depression. 8. Hypertension. 9. TAMARA, on CPAP. MEDICATIONS: Please see medication reconciliation. ALLERGIES: Amiodarone, Dilaudid, and sulfa. FAMILY HISTORY: Parents are . SOCIAL HISTORY: He drinks 3 scotches a night. REVIEW OF SYSTEMS: Ten-point review of systems is conducted and is negative, except per HPI. PHYSICAL EXAM: VITAL SIGNS: Blood pressure 123/61, heart rate of 60, respiration rate 20, saturati ng 91% on room air, temperature is 36.9. GENERAL: The patient is a pleasant man with a somewhat bipin vial affect. HEENT shows him to be normocephalic, atraumatic. Cardiovascular exam shows him to be irregularly irregular. There are no murmurs, rubs, or gallops. Pulmonary exam shows lungs clear to auscultation bilaterally. Abdominal exam is soft, nontender, nondistended. Skin exam showed no ra sh. exam is no Zee. Neurologic exam shows him to be alert and oriented x3. He is moving all extremities. Psychiatric exam shows normal mood. LABORATORY DATA: White count of 7.55, with 79% neutrophils, platelets are 131. INR is 1.34. Lacti c acid is 1.9. Bicarb is 19. Bilirubin is 1.6. Urinalysis shows 50-182 whites. He has 3+ bacteri a. He has 3+ leukocyte esterase. DATA: 1. I discussed this with Dr. Alicea. We will admit to med/surg. 2. I have personally reviewed and interpreted his chest x-ray. I do not appreciate anything acute on this. IMPRESSION AND PLAN: 82-year-old man, presents with fever and urinary tract infection. 1. Urinary tract infection: Recently treated for Enterobacter with Levaquin. Urine culture, and b lood cultures have been drawn. He had a recent bladder cancer, status post cystoscopic resection. We will empirically treat with Rocephin pending culture data. I have ordered an ultrasound of his k idneys and bladder to evaluate for other causes of recurrent urinary tract infection. 2. Fever: Likely due to the above. Chest x-ray is also normal. 3. Atrial fibrillation: He is on anticoagulation. He is rate controlled. 4. Mild thrombocytopenia: This is a chronic problem. We will just monitor. 5. Mild Reginaldo disease. 6. History of a cerebrovascular accident: He is on Eliquis and a statin. 7. Obstructive sleep apnea, on CPAP. /[id number]/MODL
[2017-06-16 05:02] LABS: % IMMATURE GRANULYOCYTES 0.5 % (0.0-1.1); ABSOLUTE IMMATURE GRANULOCYTES 0.04 10^3/uL (0.00-0.10); ADD DIFF? NO; ADD MORPH? NO; ADD SCAN? NO; ATYPICAL LYMPHOCYTE FLAG 0 (0-99); FRAGMENT RBC FLAG 0 (0-99); HEMATOCRIT 40.9 % (40.0-51.0); HEMOGLOBIN 13.6 g/dL (13.7-17.5); LEFT SHIFT FLG 10 (0-99); LIPEMIA HEMOLYSIS FLAG 80 (0-99); MEAN CELL HEMOGLOBIN 28.5 pg (27.9-34.1); MEAN CELL HEMOGLOBIN CONCENTR. 33.3 g/dL (32.4-36.7); MEAN CELL VOLUME 85.7 fL (81.5-99.8); MEAN PLATELET VOLUME 10.8 fL (8.7-11.7); PLATELET CLUMPS FLAG 10 (0-99); PLATELET COUNT 112 10^3/uL (150-400); RED BLOOD CELL COUNT 4.77 10^6/uL (4.40-6.38); RED CELL DISTRIBUTION WIDTH 14.5 % (11.5-15.2)
[2017-06-16 05:20] LABS: CALCIUM 9.1 mg/dL (8.5-10.4); CARBON DIOXIDE 21 mEq/l (22-31); CHLORIDE 107 mEq/L (97-110); GLOMERULAR FILTRATION RATE > 60; GLUCOSE 110 mg/dL (70-100); SODIUM 137 mEq/L (134-144)
[2017-06-16 05:43] LABS: ANION GAP 9 mEq/L (8-16); POTASSIUM 3.8 mEq/L (3.5-5.2)
[2017-06-16] MEDS: buPROPion SR 100 MG TAB PO SCH (09:32)
[2017-06-16] MEDS: APIXABAN 2.5 MG TAB PO SCH ×2 (09:32→20:47)
[2017-06-16] MEDS: PRAVASTATIN SODIUM 20 MG TAB PO SCH (09:32)
[2017-06-16] MEDS: VITAMIN B COMPLEX 1 EA CAP/TAB PO SCH (09:32)
[2017-06-16] MEDS: PRESERVISION AREDS2 FORMULA EYE VIT 1 EACH PO SCH (09:32)
--- NOTE | 2017-06-16 13:51 | HOSPPROG ---
Hospitalist Progress Note Assessment/Plan: 82 y/o male new to my care w h/o bladder cancer s/p resection by Dr. Escamilla presenting with #UTI -await culture -cont ctx for now -case/renal u/s was discussed with Dr. Harper who knows the patient is in the hospital and thinks the bladder thickening is likely a result of recent resection #resolved fever #mild thrombocytopenia #H/O CVA dispo: continue inpatient care for now since pt still feels weak and continues to have dysuria Subjective: no fever or chills. continues to have pain with urination. feels very weak with poor appetite Objective: Vital Signs Temp Pulse Resp BP Pulse Ox 36.8 C 60 16 143/75 H 92 06/16/17 12:00 06/16/17 12:00 06/16/17 12:00 06/16/17 12:00 06/16/17 12:00 Laboratory Results 06/16/17 04:48 06/16/17 04:48 06/15/17 06/16/17 06/17/17 05:59 05:59 05:59 Intake Total 1000 Balance 1000 PT 16.6 SEC (12.0-15.0) H 06/15/17 21:10 INR 1.34 (0.83-1.16) H 06/15/17 21:10 - Physical Exam Constitutional: no apparent distress, appears nourished, not in pain Cardiovascular: regular rate and rhythym, no murmur, rub, or gallop Respiratory: no respiratory distress, no rales or rhonchi, clear to auscultation Gastrointestinal: normoactive bowel sounds, soft, non-tender abdomen, no palpable masses, No guarding, No rebound Neurologic: AAOx3, CN II-XII Intact, No facial droop ICD10 Worksheet Patient Problems: Problems Problem Status Onset Generalized weakness Acute UTI (urinary tract infection) Acute Bladder cancer Acute Bronchitis Acute Chronic Disease Mgmt/Transitional Care Acute Dehydration Acute GIB (gastrointestinal bleeding) Acute Intoxication Acute Pneumonia Acute UTI (urinary tract infection) Acute
[2017-06-16] MEDS ORDERED: CHOLECALCIFEROL VIT D3 1,000 UNITS TAB PO SCH (17:00)
[2017-06-16] MEDS ORDERED: LOSARTAN POTASSIUM 50 MG TAB PO SCH (21:00)
[2017-06-17 07:44] VITALS: BP 135/78; PULSE 65; TEMP 98
[2017-06-17 08:34] VITALS: RESP 18; O2SAT 93
[2017-06-17] MEDS: buPROPion SR 100 MG TAB PO SCH (09:23)
[2017-06-17] MEDS: APIXABAN 2.5 MG TAB PO SCH (09:23)
[2017-06-17] MEDS: PRAVASTATIN SODIUM 20 MG TAB PO SCH (09:23)
[2017-06-17] MEDS: PRESERVISION AREDS2 FORMULA EYE VIT 1 EACH PO SCH (09:23)
[2017-06-17] MEDS: VITAMIN B COMPLEX 1 EA CAP/TAB PO SCH (09:23)
--- NOTE | 2017-06-17 13:03 | HOSPPROG ---
Hospitalist Progress Note Assessment/Plan: 82 y/o male new to my care w h/o bladder cancer s/p resection by Dr. Escamilla presenting with #UTI -culture w enterobacter LQ, bactrim and ceftriaxone sens treat w 10 add'l days bactrim -cont ctx for now -outpt urology follow up #resolved fever #mild thrombocytopenia #H/O CVA dispo: home today > 30 minutes Subjective: dysuria resolved. very anxious for dc Objective: Vital Signs Temp Pulse Resp BP Pulse Ox 36.7 C 65 18 135/78 H 93 06/17/17 07:39 06/17/17 07:39 06/17/17 07:39 06/17/17 07:39 06/17/17 07:39 Laboratory Results 06/16/17 04:48 06/16/17 04:48 06/16/17 06/17/17 06/18/17 05:59 05:59 05:59 Intake Total 1000 50 Balance 1000 50 PT 16.6 SEC (12.0-15.0) H 06/15/17 21:10 INR 1.34 (0.83-1.16) H 06/15/17 21:10 - Physical Exam Constitutional: no apparent distress, appears nourished Eyes: PERRL, anicteric sclera Ears, Nose, Mouth, Throat: moist mucous membranes, hearing normal Cardiovascular: regular rate and rhythym, no murmur, rub, or gallop Respiratory: no respiratory distress, no rales or rhonchi Gastrointestinal: normoactive bowel sounds, soft, non-tender abdomen Genitourinary: no bladder fullness, No pinto in urethra Skin: warm, normal color Musculoskeletal: full muscle strength, no muscle tenderness Neurologic: AAOx3 ICD10 Worksheet Patient Problems: Problems Problem Status Onset Generalized weakness Acute UTI (urinary tract infection) Acute Bladder cancer Acute Bronchitis Acute Chronic Disease Mgmt/Transitional Care Acute Dehydration Acute GIB (gastrointestinal bleeding) Acute Intoxication Acute Pneumonia Acute UTI (urinary tract infection) Acute
--- NOTE | 2017-06-17 13:38 | PDIAF ---
- Diagnosis Diagnosis: complicated UTI Code Status: Full Code - Medication Management Discharge Medications: Medications to Continue on Transfer C/E/Zn/Cu/OM3/DHA/EPA/LUT/ZEAX [Preservision Areds 2 Softgel] 1 each PO DAILY [Last Taken 06/15/17] Losartan Potassium [Cozaar 50 mg (*)] 100 mg PO HS 11/25/16 [Last Taken 05/26/17 ] Pravastatin Sodium 20 mg PO DAILY 11/25/16 [Last Taken 06/15/17] Cholecalciferol Vit D3 [Vitamin D3 (*)] 1,000 units PO DAILY@17 11/29/16 [Last Taken 05/27/17] Fluticasone Nasal [Flonase Nasal [place]] 1 sprays EACHNARE DAILY PRN 11/29/16 [ Last Taken 11/29/16] Vit B Comp/C/FA/Iron/Vit E [Vitamin B Complex Tablet] 1 each PO DAILY 11/29/16 [ Last Taken 06/15/17] Apixaban [Eliquis] 2.5 mg PO BID 05/27/17 [Last Taken 06/15/17] buPROPion SR [Wellbutrin 100mg SR (*)] 100 mg PO DAILY 05/27/17 [Last Taken ] Ciprofloxacin HCl [Ciprofloxacin] 500 mg PO BID #20 tab 06/17/17 [Last Taken Unknown] Discharge Medications: Refer to the Discharge Home Medication list for PRN reason. - Orders Services needed: Home Care, Physical Therapy, Occupational Therapy Home Care Face to Face: I certify that this patient was under my care and that I had the required [id number] encounter meeting the encounter requirements on the discharge day. My findings support the fact that the patient is homebound as defined in CMS Chapter 7 Medicare Benefits Manual 30.1.1, The condition of the patient is such that there exists a normal inability to leave home and consequently, leaving home would require a considerable and taxing effort. - Follow Up Care Current Providers and Referrals: Rebeka Campbell [Primary Care Provider] - As per Instructions
--- NOTE | 2017-06-17 13:46 | SOAPPROG ---
SOAP Progress Note Assessment/Plan: Assessment: UTI Plan: 06/17/17 13:37 Pt is feeling better and would like to go home. Since his infection recurred after an appropriate course of Levaquin, but is still susceptible to quinolones , I would recommend that he complete another full course and continue with a daily dose suppression for at least two additional doses. He was tentatively scheduled to start intravesical BCG immunotherapy for his bladder cancer, but I will defer this until he has completely cleared the infection and inflammation. We will contact the patient to make f/u arrangements for UTI f/u and bladder cancer f/u. Subjective: Pt feels much better today, has no dysuria, no hematuria. Objective: Vital Signs Temp Pulse Resp BP Pulse Ox 36.7 C 65 18 135/78 H 93 06/17/17 07:39 06/17/17 07:39 06/17/17 07:39 06/17/17 07:39 06/17/17 07:39 Laboratory Results 06/16/17 04:48 06/16/17 04:48 06/16/17 06/17/17 06/18/17 05:59 05:59 05:59 Intake Total 1000 50 Balance 1000 50 PT 16.6 SEC (12.0-15.0) H 06/15/17 21:10 INR 1.34 (0.83-1.16) H 06/15/17 21:10 Physical Exam - Physical Exam General Appearance: alert, no apparent distress Abdomen: normal bowel sounds, non-tender, soft ICD10 Worksheet Patient Problems: Problems Problem Status Onset Generalized weakness Acute UTI (urinary tract infection) Acute Bladder cancer Acute Bronchitis Acute Chronic Disease [facility]/Transitional Care Acute Dehydration Acute GIB (gastrointestinal bleeding) Acute Intoxication Acute Pneumonia Acute UTI (urinary tract infection) Acute
--- NOTE | 2017-06-18 02:42 | GDS ---
[f rep st] DISCHARGE SUMMARY DISCHARGE DIAGNOSES: 1. Complicated urinary tract infection with recent urologic surgery. 2. History of atrial fibrillation. 3. Bladder cancer, status post resection in January. 4. Hypertension. 5. Colon cancer, status post chemo and XRT. 6. History of cerebrovascular accident with cognitive deficits. HOSPITAL COURSE: Please see admission history and physical by Dr. Brennan Torres. The patient pr esented with persistent dysuria, had recently completed a course of levofloxacin for Enterobacter [place] I. Urine culture here grew out Enterobacter that was sensitive to ceftriaxone, which is what he was prescribed here, Bactrim and levofloxacin, was resistant to amp and amp/sulbactam. The patient has a Bactrim allergy, so he was prescribed ciprofloxacin for 10 days additional therapy, a total of 12 days of therapy. If this recurs, he will need treatment with a cephalosporin as IV antibiotics. His bladder ultrasound showed debris versus mass in the bladder. This was reviewed with Dr. Meredith penn felt it was consistent with postoperative state. He does have outpatient urologic followup. /[id number]/MODL
== END 2017-06-17 15:30 | disposition home or self-care (01) | DRG 690 ==
LOC: F3E 23:38
PROVIDERS: ADMIT Student in an Organized Health Care Education/Training Program; ATTEND Student in an Organized Health Care Education/Training Program
DX: N39.0 Urinary tract infection, site not specified (principal); B95.2 Enterococcus as the cause of diseases classified elsewhere; D69.6 Thrombocytopenia, unspecified; G47.33 Obstructive sleep apnea (adult) (pediatric); I69.398 Other sequelae of cerebral infarction; G31.84 Mild cognitive impairment of uncertain or unknown etiology; I48.91 Unspecified atrial fibrillation; I10 Essential (primary) hypertension; Z87.01 Personal history of pneumonia (recurrent); Z85.038 Personal history of other malignant neoplasm of large intestine; Z87.440 Personal history of urinary (tract) infections
CPT/HCPCS: 96365; 97161-GP; 97165-GO; G8978-GP-CI; G8979-GP-CI; G8987-GO-CJ; G8988-GO-CH; J0696

== ENCOUNTER 2017-08-12 18:57 | Inpatient (IN) | payer OTHER, MEDICARE ==
--- NOTE | 2017-08-12 19:43 | EDPHY ---
HPI/HX/ROS/PE/MDM Narrative: CHIEF COMPLAINT: Abdominal pain and fever following BCG injection HISTORY OF PRESENT ILLNESS: The patient is an anticoagulated 82 y/o male who had a intravesicular bladder BCG infusion today. This is part of his treatment for bladder cancer; it is the 5th in a series of 6 weekly infusions. Per his urologist, the pinto placement prior to the infusion was traumatic. Patient developed a low grade fever and abdominal pain afterwards, as has been typical for him after these infusions. However, his gave him tylenol and noted that his fever increased despite antipyretics, and he had an episode of shaking chills which concerned her. Patient and discussed this with Dr. Harper, who instructed them to come to the ED and who contacted myself regarding patients history. The abdominal pain developed after the procedure and increased as the day went on. He also had an increase in urinary frequency. Denies hematuria this afternoon after the procedure. No chest pain, shortness of breath, palpitations, vomiting, diarrhea, headache, lightheadedness. REVIEW OF SYSTEMS: Aside from elements discussed in the HPI, a comprehensive 10-point review of systems was reviewed and is negative. PAST MEDICAL HISTORY: BCG injection today Bladder cancer Colon cancer TIA and Stroke SOCIAL HISTORY: at bedside Lives in [place] Retired VITAL SIGNS: Reviewed by me GENERAL: Well-developed, well-nourished, resting comfortably in no respiratory distress. Pleasant and in no distress currently. HEENT: Atraumatic. Eyes: No icterus, no injection. Mouth: moist mucous membranes. No erythema or lesions. Neck: supple with no adenopathy. LUNGS: Clear to auscultation bilaterally, no wheezes, rhonchi or rales. CARDIAC: Regular rate and rhythm, no rubs, murmurs or gallops. ABDOMEN: LLQ tenderness and left mid quadrant tenderness to palpation. Soft, nondistended, bowel sounds normal. : No blood at urethra meatus, no testicular swelling or tenderness. BACK: No CVA tenderness. EXTREMITIES: No trauma. No edema. Range of motion is normal throughout. NEURO: Alert and oriented, grossly nonfocal. SKIN: Warm and dry, no rash. PSYCHIATRIC: Normal mentation, no agitation. Portions of this note were transcribed by a medical assistant ob gyn. I personally performed a history, physical exam, medical decision making, and confirmed accuracy of information the transcribed note. ED Course: 1941: 12-LEAD EKG: Please see the full report in [facility]. My interpretation: Normal sinus rhythm with a rate of 72. 82 year old presenting with fever, chills, and abdominal pain after a traumatic pinto placement followed by a BCG mycobacterium instillation into his bladder. IV placed, sepsis protocol begun. Patient declined pain meds currently. Sepsis/Septic Shock Care NoteThe patient presents to the ED with fever, chills , and potential mycobacterial sepsis. The patient did not have met criteria for severe sepsis. Normal WBC, normal lactic acid, normal vital signs. Discussed course at length with Dr Jacques from infectious disease. AFB blood cultures and urine cultures ordered. Will cover with usual urosepsis antibiotics-- to exclude levaquin as it has some mycobacterial activity-- and closely observe. Did discuss if any infection control measures needed to be taken-- for example with patients urine-- none felt to be required at this point. Discussed at length with Dr Mary, admitting physician. MDM: Differential diagnosis for this patient presenting complaint was considered including but not limited to urinary tract infection, hypersensitivity reaction to BCG, mycobacterium sepsis, viral syndrome, and influenza. - Data Points Imaging Results: CT Abd Pelvis: Impression: 1. Mild (new) left hydronephrosis likely due to stenosis at the left ureterovesical junction, potentially due to underlying malignancy or reactive process to therapy. No ureteral calculus or discrete mass. 2. No local regional lymphadenopathy or evidence of metastatic disease. 3. Probably benign dilated sidebranch duct and uncinate process of pancreas. Recommend intermittent surveillance, with follow-up CT of the abdomen in 12 months. 4. 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 5. Diverticulosis. No acute diverticulitis. Findings discussed with Emergency Department physician, Jessica Nye M.D., at August 12, 2017 at 2054. Dictated By: Stan Dent MD Imaging: Discussed imaging studies w/ faculty i on call medical assistant Radiologist, I viewed and interpreted images myself Laboratory Results: Laboratory Results 08/12/17 19:33 08/12/17 19:33 08/12/17 08/12/17 08/12/17 19:33 19:33 19:33 WBC RBC Hgb Hct MCV MCH MCHC RDW Plt Count MPV Neut % (Auto) Lymph % (Auto) [place] % (Auto) Eos % (Auto) Baso % (Auto) Nucleat RBC Rel Count Absolute Neuts (auto) Absolute Lymphs (auto) Absolute Monos (auto) Absolute Eos (auto) Absolute Basos (auto) Absolute Nucleated RBC Immature Gran % Immature Gran # PT Pending INR Pending APTT Pending VBG Lactic Acid 1.3 mmol/L mmol/L (0.7-2.1) Sodium Potassium Chloride Carbon Dioxide Anion Gap BUN Creatinine Estimated GFR Glucose Calcium Total Bilirubin Pending 08/12/17 08/12/17 19:33 19:33 WBC 8.98 10^3/uL 10^3/uL (3.80-9.50) RBC 5.23 10^6/uL 10^6/uL (4.40-6.38) Hgb 15.1 g/dL g/dL (13.7-17.5) Hct 44.3 % % (40.0-51.0) MCV 84.7 fL fL (81.5-99.8) MCH 28.9 pg pg (27.9-34.1) MCHC 34.1 g/dL g/dL (32.4-36.7) RDW 14.5 % % (11.5-15.2) Plt Count 137 10^3/uL L 10^3/uL (150-400) MPV 9.7 fL fL (8.7-11.7) Neut % (Auto) 86.1 % H % (39.3-74.2) Lymph % (Auto) 4.5 % L % (15.0-45.0) [place] % (Auto) 7.3 % % (4.5-13.0) Eos % (Auto) 1.1 % % (0.6-7.6) Baso % (Auto) 0.2 % L % (0.3-1.7) Nucleat RBC Rel Count 0.0 % % (0.0-0.2) Absolute Neuts (auto) 7.73 10^3/uL H 10^3/uL (1.70-6.50) Absolute Lymphs (auto) 0.40 10^3/uL L 10^3/uL (1.00-3.00) Absolute Monos (auto) 0.66 10^3/uL 10^3/uL (0.30-0.80) Absolute Eos (auto) 0.10 10^3/uL 10^3/uL (0.03-0.40) Absolute Basos (auto) 0.02 10^3/uL 10^3/uL (0.02-0.10) Absolute Nucleated RBC 0.00 10^3/uL 10^3/uL (0-0.01) Immature Gran % 0.8 % % (0.0-1.1) Immature Gran # 0.07 10^3/uL 10^3/uL (0.00-0.10) PT INR APTT VBG Lactic Acid Sodium 134 mEq/L mEq/L (134-144) Potassium 4.1 mEq/L mEq/L (3.5-5.2) Chloride 102 mEq/L mEq/L (97-110) Carbon Dioxide 20 mEq/l L mEq/l (22-31) Anion Gap 12 mEq/L mEq/L (8-16) BUN 21 mg/dL mg/dL (7-23) Creatinine 1.2 mg/dL mg/dL (0.7-1.3) Estimated GFR 58 Glucose 119 mg/dL H mg/dL (70-100) Calcium 9.3 mg/dL mg/dL (8.5-10.4) Total Bilirubin General Time Seen by Provider: 08/12/17 19:00 Initial Vital Signs: Initial Vital Signs Temperature (C) 36.9 C 08/12/17 19:01 Heart Rate 77 08/12/17 19:01 Respiratory Rate 16 08/12/17 19:01 Blood Pressure 138/71 H 08/12/17 19:01 O2 Sat (%) 91 L 08/12/17 19:01 O2 Delivery Mode Room Air Allergies/Adverse Reactions: amiodarone [Amiodarone] Allergy (Unknown, Verified 06/15/17 20:24) Other-Enter Comments hydromorphone HCl [From Dilaudid] Allergy (Unknown, Verified 06/15/17 20:24) Other-Enter Comments Sulfa (Sulfonamide Antibiotics) Allergy (Verified 06/15/17 20:24) Other-Enter Comments Home Medications: Medication Instructions Recorded C/E/Zn/Cu/OM3/DHA/EPA/LUT/ZEAX 1 each PO DAILY 11/25/16 [Preservision Areds 2 Softgel] Losartan Potassium [Cozaar 50 mg 100 mg PO HS 11/25/16 (*)] Pravastatin Sodium 20 mg PO DAILY 11/25/16 Cholecalciferol Vit D3 [Vitamin D3 1,000 units PO DAILY 11/29/16 (*)] Vit B Comp/C/FA/Iron/Vit E 1 each PO DAILY 11/29/16 [Vitamin B Complex Tablet] Apixaban [Eliquis] 2.5 mg PO BID 05/27/17 buPROPion SR [Wellbutrin 100mg SR 100 mg PO DAILY 05/27/17 (*)] Departure - Departure Disposition: [facility] Acute Clinical Impression: Fever and chills Bladder cancer Qualifiers: Bladder location: unspecified site Qualified Code(s): C67.9 - Malignant neoplasm of bladder, unspecified Abdominal pain Qualifiers: Abdominal location: left lower quadrant Qualified Code(s): R10.32 - Left lower quadrant pain Condition: Fair Report Scribed for: Jessica Nye Report Scribed by: Wendy Alexander Date of Report: 08/12/17 Time of Report: 19:59
[2017-08-12 19:44] LABS: % IMMATURE GRANULYOCYTES 0.8 % (0.0-1.1); ABSOLUTE IMMATURE GRANULOCYTES 0.07 10^3/uL (0.00-0.10); ADD DIFF? NO; ADD MORPH? NO; ADD SCAN? NO; ATYPICAL LYMPHOCYTE FLAG 10 (0-99); FRAGMENT RBC FLAG 0 (0-99); HEMATOCRIT 44.3 % (40.0-51.0); HEMOGLOBIN 15.1 g/dL (13.7-17.5); LEFT SHIFT FLG 10 (0-99); LIPEMIA HEMOLYSIS FLAG 90 (0-99); MEAN CELL HEMOGLOBIN 28.9 pg (27.9-34.1); MEAN CELL HEMOGLOBIN CONCENTR. 34.1 g/dL (32.4-36.7); MEAN CELL VOLUME 84.7 fL (81.5-99.8); MEAN PLATELET VOLUME 9.7 fL (8.7-11.7); PLATELET CLUMPS FLAG 0 (0-99); PLATELET COUNT 137 10^3/uL (150-400); RED BLOOD CELL COUNT 5.23 10^6/uL (4.40-6.38); RED CELL DISTRIBUTION WIDTH 14.5 % (11.5-15.2)
--- NOTE | 2017-08-12 19:45 | CPEKG ---
Heart Rate: 72 RR Interval: 833 P-R Interval: 156 QRSD Interval: 110 QT Interval: 384 QTC Interval: 421 P Guild: 33 QRS Guild: -9 T Wave Guild: 35 EKG Severity - ABNORMAL ECG - EKG Impression: SINUS RHYTHM EKG Impression: INCOMPLETE RIGHT BUNDLE BRANCH BLOCK Electronically Signed By: Jessica Nye 12-Aug-2017 21:17:52
[2017-08-12 19:59] LABS: ANION GAP 12 mEq/L (8-16); CALCIUM 9.3 mg/dL (8.5-10.4); CARBON DIOXIDE 20 mEq/l (22-31); CHLORIDE 102 mEq/L (97-110); CREATININE 1.2 mg/dL (0.7-1.3); GLOMERULAR FILTRATION RATE 58; GLUCOSE 119 mg/dL (70-100); POTASSIUM 4.1 mEq/L (3.5-5.2); SODIUM 134 mEq/L (134-144)
[2017-08-12] MEDS ORDERED: IOPAMIDOL (ISOVUE-300) 100 ML BTL ONE (20:08)
[2017-08-12 20:11] LABS: BILIRUBIN,TOTAL 0.9 mg/dL (0.1-1.4)
[2017-08-12 20:15] LABS: INR 1.09 (0.83-1.16)
[2017-08-12 20:16] LABS: APTT 26.6 SEC (23.0-38.0)
[2017-08-12 21:02] LABS: COLOR YELLOW; LEUKOCYTE ESTERASE,URINE 3+ (NEGATIVE); NITRITE,URINE NEGATIVE (NEGATIVE)
[2017-08-12 21:09] LABS: MUCUS TRACE /lpf (NONE-1+); RBC,URINE 50-182 /hpf (0-3); WBC,URINE 50-182 /hpf (0-3)
[2017-08-12] MEDS ORDERED: ONDANSETRON 4 MG/2 ML VIAL IVP PRN (21:29)
[2017-08-12] MEDS ORDERED: ONDANSETRON DISINTEGRATING 4 MG TAB PO PRN (21:29)
[2017-08-12] MEDS ORDERED: NS 1,000 ML IV ONE (21:32)
--- NOTE | 2017-08-12 21:58 | GHP ---
[f rep st] HISTORY AND PHYSICAL DATE OF ADMISSION: 08/12/2017 CHIEF COMPLAINT: Rigors and fever. HISTORY OF PRESENT ILLNESS: An 82-year-old male with a history of bladder cancer actively receiving BCG infusion therapy for his bladder cancer, who received his 5th treatment today and per the report of the urologic team, had a slightly traumatic catheterization prior to his receipt of his BCG infusi on. The patient returned home and very soon after returning home, developed high fevers, rigors, noni sea, fatigue and overall ill sensation. The patient denies any changes in his bowel habits. Does de scribe blood loss from his penis right after his procedure, is now having abdominal discomfort most n otable in the left lower quadrant. Is still feeling quite chilled in the emergency department. Jose es chest pain. Denies shortness of breath. Reports the need for nocturnal oxygen when he does not h ave his CPAP. Denies any lower extremity edema, myalgias, or rashes. PAST MEDICAL HISTORY: 1. Bladder cancer status post resection in January receiving BCG infusion therapy. 2. Atrial fibrillation on anticoagulation. 3. Hypertension. 4. History of colon cancer status post chemo and radiation. 5. History of a CVA with baseline cognitive deficits. 6. History of lower GI bleed due to diverticulosis. 7. Depression. 8. Hypertension. 9. TAMARA uses CPAP. SOCIAL HISTORY: Negative for tobacco. The patient does enjoy an alcoholic beverage in the evenings. Denies any illicit drugs or marijuana. ADVANCED DIRECTIVES: Patient is full cor, full tube. His would be his medical decision maker. REVIEW OF SYSTEMS: A 10-point review of systems is negative with the exception of that reported in t he HPI. FAMILY HISTORY: Both of his parents are . PHYSICAL EXAMINATION: VITAL SIGNS: Blood pressure 145/81, heart rate 68, respiratory rate 16, 92% o n room air, 36.7. GENERAL: This is a pleasant, elderly male lying flat in bed. HEENT: Notable for dry mucous membranes. CARDIAC: Patient is regular rate and rhythm. PULMONARY: He is clear to aus cultation bilaterally. GASTROINTESTINAL: Positive bowel sounds. Abdomen is soft and tender in the left lower quadrant. No rebound or guarding. MUSCULOSKELETAL: Negative for any lower extremity francis ma. SKIN: Negative for any rashes. NEUROLOGIC: He is alert and oriented x3. PSYCHIATRIC: Pleasan t and cooperative on interview and examination. DATA: White count 8.9, hematocrit 44.3, platelets of 137. Creatinine of 1.2, sodium of 134. Urine shows 50-182 whites, 50-182 red cells, 3+ blood, 3+ leuk esterase, 1+ protein. CT of the abdomen, which I personally reviewed and interpreted, shows left-sided hydronephrosis, sten osis thought to be at the left ureterovesical junction. ASSESSMENT AND PLAN: This is an 82-year-old male presenting with rigors. 1. Acute rigors. The patient is certainly at risk for sepsis physiology from a urinary source. The BCG infusions puts him at risk for potential infection from the mycobacterium bovis strain. Case wa s reviewed with Infectious Disease, who recommended that we proceed forward as we would with any [place] ent presenting with rigors post urologic procedure. We will treat with IV fluids, IV ceftriaxone. B lood cultures, urine cultures, and AFB cultures have been obtained and will be followed. Infectious Disease will follow along as well. Looking historically, the patient has grown Enterobacter cloaca c ase several times, each time sensitive to ceftriaxone. 2. Bladder cancer. Patient is being followed closely by his outpatient urologic team, who referred him for hospitalization this evening. Suspect they will be following along inpatient. We will nilton nue supportive care and specific urologic care on their guidance. 3. Left hydronephrosis. Again, will allow Urology to guide decision making related to this. 4. Atrial fibrillation. We will continue patient's anticoagulation and rate control medications. 5. Mild cognitive deficits. The patient appears to be at his baseline mentation. We will certainly follow with acute supportive care. 6. Obstructive sleep apnea. We will use nocturnal oxygen supplementation until CPAP is brought. 7. Hypertension. Patient's blood pressures are adequately controlled. We will continue his home me dications once reconciled. 8. Alcohol use/abuse. Patient averages 3 alcoholic beverages in the evening and is requesting 1 on admission. I think it prudent to continue a single alcoholic beverage in the evenings to avoid any p ossible withdrawal and/or confusion triggered by alcohol withdrawal. PROPHYLAXIS: He is on anticoagulation. DIET: Regular. DISPOSITION: I expect greater than 2 midnights as the patient is medically quite complicated present ing with rigors and concern for possible evolving sepsis. I have discussed the case with the emergen cy room physician. Patient will be triaged to the medical-surgical floor for antibiotics, IV fluids, and close monitoring. /[id number]/MODL
[2017-08-12] MEDS: RED WINE 120 ML BOTTLE PO SCH (23:02)
[2017-08-12] MEDS: LOSARTAN POTASSIUM 50 MG TAB PO SCH (23:24)
[2017-08-12] MEDS: APIXABAN 2.5 MG TAB PO SCH (23:27)
[2017-08-12] MEDS: NS 1,000 ML IV SCH (23:28)
[2017-08-13 05:22] LABS: % IMMATURE GRANULYOCYTES 0.8 % (0.0-1.1); ABSOLUTE IMMATURE GRANULOCYTES 0.05 10^3/uL (0.00-0.10); ADD DIFF? NO; ADD MORPH? NO; ADD SCAN? NO; ATYPICAL LYMPHOCYTE FLAG 0 (0-99); FRAGMENT RBC FLAG 0 (0-99); HEMATOCRIT 41.7 % (40.0-51.0); HEMOGLOBIN 13.9 g/dL (13.7-17.5); LEFT SHIFT FLG 0 (0-99); LIPEMIA HEMOLYSIS FLAG 80 (0-99); MEAN CELL HEMOGLOBIN 28.8 pg (27.9-34.1); MEAN CELL HEMOGLOBIN CONCENTR. 33.3 g/dL (32.4-36.7); MEAN CELL VOLUME 86.3 fL (81.5-99.8); MEAN PLATELET VOLUME 10.1 fL (8.7-11.7); PLATELET CLUMPS FLAG 0 (0-99); PLATELET COUNT 136 10^3/uL (150-400); RED BLOOD CELL COUNT 4.83 10^6/uL (4.40-6.38); RED CELL DISTRIBUTION WIDTH 14.6 % (11.5-15.2)
[2017-08-13 05:23] LABS: ANION GAP 11 mEq/L (8-16); CALCIUM 8.4 mg/dL (8.5-10.4); CARBON DIOXIDE 22 mEq/l (22-31); CHLORIDE 105 mEq/L (97-110); CREATININE 1.1 mg/dL (0.7-1.3); GLOMERULAR FILTRATION RATE > 60; GLUCOSE 109 mg/dL (70-100); SODIUM 138 mEq/L (134-144)
[2017-08-13] MEDS: APIXABAN 2.5 MG TAB PO SCH ×2 (08:16→20:45)
[2017-08-13] MEDS: VITAMIN B COMPLEX 1 EA CAP/TAB PO SCH (08:16)
[2017-08-13] MEDS: PRESERVISION AREDS2 FORMULA EYE VIT 1 EACH PO SCH (08:16)
[2017-08-13] MEDS: PRAVASTATIN SODIUM 20 MG TAB PO SCH (08:17)
[2017-08-13] MEDS: buPROPion SR 100 MG TAB PO SCH (08:17)
[2017-08-13] MEDS: CHOLECALCIFEROL VIT D3 1,000 UNITS TAB PO SCH (08:17)
[2017-08-13] MEDS: NS 1,000 ML IV SCH ×2 (11:15→21:02)
[2017-08-13 11:27] LABS: ALBUMIN 3.1 g/dL (3.5-5.0); BILIRUBIN,TOTAL 1.1 mg/dL (0.1-1.4); BILIRUBIN-CONJUGATED 0.4 mg/dL (0.0-0.5); BILIRUBIN-UNCONJUGATED 0.7 mg/dL (0.0-1.1); TOTAL PROTEIN 5.8 g/dL (6.3-8.2)
--- NOTE | 2017-08-13 11:41 | GCON ---
[f rep st] CONSULTATION INFECTIOUS DISEASE CONSULTATION DATE OF CONSULTATION: 08/13/2017 REASON FOR CONSULTATION: Fever after BCG installation into bladder. HISTORY OF PRESENT ILLNESS: The patient is an 82-year-old male with a past medical history of bladde r cancer, undergoing treatment with intravesicular BCG, who I am asked to see in consultation regardi ng fever after his 5th BCG installation yesterday. The patient describes having more pain with cindy ter insertion yesterday for BCG installation. His BCG was instilled, and he notes after catheter rem oval he did have some bleeding from his urethra. He went home and approximately 2 hours later develo ped a fever, which he notes was around 100 degrees. He does not describe having rigors to me, althou gh at time of presentation this was reported to the hospitalist admitting physician. He did have mikal e nausea and fatigue, as well as dysuria and lower pelvic pain diffusely. This prompted a phone call to his urologist who advised he be seen in the Emergency Department. The patient has not had prior fever with BCG instillation. He does describe developing bladder irritability and pelvic pain with i nstallation. He does have a prior history of UTI with Enterobacter cloacae being isolated in April an d May. He does note that he still has some dysuria and frequency. No hematuria. The pelvic pain h as decreased significantly. He does not have any scrotal pain. No flank pain. Overall he feels sig nificantly improved. No recent travel or unusual animal exposure. Given the above findings, I am no w asked to assist in his ongoing management. PAST MEDICAL HISTORY: Bladder cancer undergoing treatment with BCG installation, atrial fibrillation on chronic anticoagulation, hypertension, history of colon cancer treated with chemotherapy, radiati on and surgery, stroke, lower GI bleed associated with diverticulosis, depression, obstructive sleep apnea. PAST SURGICAL HISTORY: Describes having colon surgery for colon cancer and bladder scraping for his bladder cancer, cholecystectomy. CURRENT MEDICATIONS: Ceftriaxone 1 g IV daily, Wellbutrin 100 mg p.o. daily, Eliquis 2.5 mg p.o. twi ce daily, vitamin D 1,000 units p.o. daily, Cozaar 100 mg p.o. at bedtime, multivitamin p.o. daily, P ravachol 20 mg p.o. daily, vitamin B1 p.o. daily. ALLERGIES: The patient notes no known drug allergies, although his medical record lists amiodarone, hydromorphone, and sulfonamides. SOCIAL HISTORY: The patient quit smoking many years ago. He drinks 3 ounces of scotch daily. No dr ug use. No recent travel. Pet dog at home. FAMILY HISTORY: Unknown. REVIEW OF SYSTEMS: Outside that noted in the HPI, the remainder of 10 system review was unremarkable . PHYSICAL EXAMINATION: VITAL SIGNS: Temperature 37.6, heart rate impression temperature maximum 37.6 , temperature current 36.4, heart rate 52, respiratory rate 20, blood pressure 127/68, oxygen saturat ion 95% on 3 L. GENERAL: The patient is well nourished, well developed, in no acute distress. He a ppears nontoxic. HEENT: There is no scleral icterus, conjunctival injection, or conjunctival petech iae. The oropharynx shows moist mucous membranes with no lesions noted. There is no nasal discharge . There is no tenderness over the frontal, maxillary, or mastoid area. NECK: Supple without palpab le lymphadenopathy or thyromegaly. CHEST: A few scattered expiratory wheezes. Otherwise, clear to auscultation with normal respiratory effort. CARDIOVASCULAR: With a 2/6 systolic murmur heard at th e left lower sternal border. No gallops or rubs noted. ABDOMEN: Soft, nontender, nondistended. Th ere is no palpable organomegaly. No suprapubic tenderness to palpation. BACK: There is no CVA tend erness. : There is no scrotal edema, tenderness, or erythema. There is no penile edema or urethr al discharge. SKIN: No stigmata of endocarditis. The skin is warm and dry to touch. NEUROLOGIC: The patient is alert and interacts appropriately with examiner. Cranial nerves 2-[address] Sensation is grossly intact. LYMPHATICS: No cervical or supraclavicular inguinal nodes palpabl e. LABORATORY DATA: White blood cell count 6.2, hematocrit 41.7, platelets 136 (unchanged from platelet count in May), neutrophils 79%, serum creatinine is 1.1. Urinalysis shows 50-182 red blood cells a nd 50-182 white blood cells with negative nitrate. Urine culture and blood cultures are pending. AFB blood culture is pending. Urine cultures from showed no growth; urine culture from 06/15/2017 and 05/27/2017 showed growth of Enterobacter cloacae, which is susceptible to ceftriaxone. CT scan of the abdomen and pelvis shows mild new left hydronephrosis felt to be due to stenosis at th e left ureteral vesicular junction. No nephrolithiasis is noted. Bladder wall thickening is present and described as mild. There is left-sided perinephric stranding. IMPRESSION: A complicated urinary tract infection: Presentation most likely due to complicated UTI of bacterial etiology. Other primary consideration is hypersensitivity reaction to local instillatio n of BCG, which can be seen post installation. Doubt this represents BCG sepsis/disseminated BCG giv en rapidity of onset and prompt improvement in symptomatology. The patient previously has had cultur es with Enterobacter cloacae, which is susceptible to ceftriaxone and several other agents (at times can have inducible beta lactamase, which is not likely to be problematic in short term). We will nee d to follow up blood cultures and urine cultures as available, as well as AFB blood culture. RECOMMENDATIONS: 1. Agree with continued empiric ceftriaxone. 2. Follow up cultures as available. 3. Follow clinical course to above measures. 4. If the patient were to have persistent fever over time, this would increase concern for possibili ty of disseminated BCG. Thank you for this consultation. We will continue to follow the patient with you. /[id number]/MODL
--- NOTE | 2017-08-13 11:56 | HOSPPROG ---
Hospitalist Progress Note Assessment/Plan: DIAGNOSES: -acute rigors, raising suspicion for either postprocedural urinary tract infection versus inflammatory response to BCG bladder treatment given yesterday -pyuria of uncertain etiology, infectious or postprocedural irritation; cultures pending PLANS: I reviewed in detail today with Dr. Jaden Bowilng Continue empiric antibiotics while waiting on culture results new SUBJECTIVE: Patient states he feels better today. He has not had any cold sensation or rigors or other fever symptoms Eating well no nausea Some mild discomfort passing urine new with urethral irritation OBJECTIVE Vitals reviewed: No fevers have been seen here so far, otherwise stable vitals Exam: alert oriented skin warm dry color ok resps not labored lungs clear BSs heart regular abd soft nondistended nontender, bowel sounds present limbs warm, no edema iv site ok Microbiology data: All culture still pending at this time Laboratory data: White blood cell count remains normal Objective: Vital Signs Temp Pulse Resp BP Pulse Ox 36.5 C 51 L 16 100/52 L 96 08/13/17 11:22 08/13/17 11:22 08/13/17 11:22 08/13/17 11:22 08/13/17 11:22 Laboratory Results 08/13/17 04:15 08/13/17 04:15 08/12/17 08/13/17 08/14/17 06:59 06:59 06:59 Intake Total 2200 Output Total 675 Balance 1525 PT 14.0 SEC (12.0-15.0) 08/12/17 19:33 INR 1.09 (0.83-1.16) 08/12/17 19:33 ICD10 Worksheet Patient Problems: Problems Problem Status Onset Bladder cancer Acute Bronchitis Acute Chronic Disease Mgmt/Transitional Care Acute Dehydration Acute GIB (gastrointestinal bleeding) Acute Generalized weakness Acute Intoxication Acute Pneumonia Acute UTI (urinary tract infection) Acute UTI (urinary tract infection) Acute
--- NOTE | 2017-08-13 15:06 | ASMTCMCOM ---
CM Note CM Note Notes: CM met w/ pt for dispo planning. OT/PT is recommending home independent with outpatient PT. Pt reports that he will return home w/ supportive w/out any needs. CM available for changes. Date Signed: 08/13/2017 03:05 PM Electronically Signed By:GLENDY Mariscal
[2017-08-13] MEDS: RED WINE 120 ML BOTTLE PO SCH (18:42)
[2017-08-13] MEDS: LOSARTAN POTASSIUM 50 MG TAB PO SCH (20:44)
[2017-08-14] MEDS: ACETAMINOPHEN 325 MG TAB PO PRN ×2 (00:26→20:06)
[2017-08-14] MEDS: NS 1,000 ML IV SCH ×2 (07:35→18:11)
[2017-08-14] MEDS: VITAMIN B COMPLEX 1 EA CAP/TAB PO SCH (07:36)
[2017-08-14] MEDS: PRESERVISION AREDS2 FORMULA EYE VIT 1 EACH PO SCH (07:36)
[2017-08-14] MEDS: APIXABAN 2.5 MG TAB PO SCH ×2 (07:37→20:06)
[2017-08-14] MEDS: CHOLECALCIFEROL VIT D3 1,000 UNITS TAB PO SCH (07:37)
[2017-08-14] MEDS: buPROPion SR 100 MG TAB PO SCH (07:37)
[2017-08-14] MEDS: PRAVASTATIN SODIUM 20 MG TAB PO SCH (07:37)
--- NOTE | 2017-08-14 16:23 | PCMIDPN ---
Assessment/Plan: # acute rigors, DDx postprocedural urinary tract infection versus inflammatory response to BCG bladder. Suspect inflammatory response due to BCG injection. Doubt disseminated infection due to BCG. No further symptoms since in admitted # pyuria of uncertain etiology, infectious or postprocedural irritation. No dysuria; cultures NGTD, WBC normal, afebrile Plan 1. Continue ceftriaxone for another night but cultures are negative tomorrow discharge off of antibiotics. Medication Ceftriaxone 1 g IV daily, # 3 Microbiology 08/12 blood cultures (2) no growth today 08/12 urine culture: No growth today 08/12 AFB blood culture pending Subjective: Patient requests discharge to home or bottle of wine to stay in hospital. No abdominal pain, no dysuria, no fevers, no rigors Objective: Vital Signs Temp Pulse Resp BP Pulse Ox 36.3 C 55 L 20 167/88 H 95 08/14/17 14:59 08/14/17 14:59 08/14/17 14:59 08/14/17 14:59 08/14/17 14:59 Laboratory Results 08/13/17 04:15 08/13/17 04:15 08/13/17 08/14/17 08/15/17 05:59 05:59 05:59 Intake Total 2200 2787 400 Output Total 675 1750 750 Balance 1525 1037 -350 - Physical Exam General Appearance: alert, no apparent distress EENT: pale conjunctiva Respiratory: lungs clear, No accessory muscle use Neck: supple Cardiac/Chest: regular rate, rhythm, No systolic murmur Extremities: No pedal edema Abdomen: normal bowel sounds, non-tender, soft, No guarding Male Genitalia: other (No suprapubic tenderness) Skin: warm/dry, No rash Neuro/Psych: alert, normal mood/affect, oriented x 3 - Time Spent With Patient Time Spent with Patient: greater than 25 minutes (Care coordinated with Dr. Zapien) Time Spent with Patient: Greater than 25 minutes spent on this patients care, greater than 50% of time spent counseling, educating, and coordinating care regarding the above mentioned plan. ICD10 Worksheet Patient Problems: Problems Problem Status Onset Bladder cancer Acute Bronchitis Acute Chronic Disease Mgmt/Transitional Care Acute Dehydration Acute GIB (gastrointestinal bleeding) Acute Generalized weakness Acute Intoxication Acute Pneumonia Acute UTI (urinary tract infection) Acute UTI (urinary tract infection) Acute
[2017-08-14] MEDS: RED WINE 120 ML BOTTLE PO SCH (18:12)
--- NOTE | 2017-08-14 18:12 | HOSPPROG ---
Hospitalist Progress Note Assessment/Plan: assessment: 82-year-old male presents with possible postprocedure urinary tract infection Plan: 1. possible postprocedure urinary tract infection. Present on admission, occurred after patient had BCG implantation with subsequent rigors and fever - discussed with Dr. Gabi Jacques, consultation appreciated, she recommends ongoing IV antibiotics and monitoring for an additional 24 hours of the urine culture to determine whether patient requires antibiotic adjustment, given his high risk for infection and complications -continue IV ceftriaxone -continue to monitor urine and blood cultures - repeat CBC in a.m. 2. Hydronephrosis. Acute, present on imaging, left side, most likely secondary to stenosis from underlying malignancy, currently receiving treatment from his urologist Dr. Miguelito Harper -follow up with Dr. Robbin Eugene. Regular Prophylaxis. High risk patient, Lovenox 40 Code. Full Disposition. Anticipated discharge is 08/15/2017, pending a negative culture Subjective: reports no ongoing fevers Objective: Vital Signs Temp Pulse Resp BP Pulse Ox 36.3 C 55 L 20 167/88 H 95 08/14/17 14:59 08/14/17 14:59 08/14/17 14:59 08/14/17 14:59 08/14/17 14:59 Laboratory Results 08/13/17 04:15 08/13/17 04:15 08/13/17 08/14/17 08/15/17 05:59 05:59 05:59 Intake Total 2200 2787 400 Output Total 675 1750 750 Balance 1525 1037 -350 PT 14.0 SEC (12.0-15.0) 08/12/17 19:33 INR 1.09 (0.83-1.16) 08/12/17 19:33 - Pending Discharge Pending Discharge Within 24 Hours: Yes Pending Discharge Date: 08/15/17 Pending Discharge Time: 11:00 - Physical Exam Constitutional: no apparent distress, appears nourished, not in pain Cardiovascular: regular rate and rhythym, no murmur, rub, or gallop Respiratory: no respiratory distress, no rales or rhonchi, clear to auscultation Gastrointestinal: normoactive bowel sounds, soft, non-tender abdomen, no palpable masses Neurologic: AAOx3, sensation intact bilaterally, No weakness Psychiatric: interacting appropriately, not anxious, not encephalopathic, thought process linear ICD10 Worksheet Patient Problems: Problems Problem Status Onset Abdominal pain Acute Bladder cancer Acute Fever and chills Acute Bronchitis Acute Chronic Disease Mgmt/Transitional Care Acute Dehydration Acute GIB (gastrointestinal bleeding) Acute Generalized weakness Acute Intoxication Acute Pneumonia Acute UTI (urinary tract infection) Acute UTI (urinary tract infection) Acute
[2017-08-14] MEDS: LOSARTAN POTASSIUM 50 MG TAB PO SCH (20:05)
[2017-08-15] MEDS: ACETAMINOPHEN 325 MG TAB PO PRN (00:44)
[2017-08-15 04:12] VITALS: O2SAT 97
[2017-08-15] MEDS: NS 1,000 ML IV SCH (04:21)
[2017-08-15 05:15] LABS: % IMMATURE GRANULYOCYTES 0.9 % (0.0-1.1); ABSOLUTE IMMATURE GRANULOCYTES 0.03 10^3/uL (0.00-0.10); ADD DIFF? NO; ADD MORPH? NO; ADD SCAN? NO; ATYPICAL LYMPHOCYTE FLAG 0 (0-99); FRAGMENT RBC FLAG 0 (0-99); HEMATOCRIT 39.1 % (40.0-51.0); HEMOGLOBIN 12.9 g/dL (13.7-17.5); LEFT SHIFT FLG 0 (0-99); LIPEMIA HEMOLYSIS FLAG 80 (0-99); MEAN CELL HEMOGLOBIN 28.6 pg (27.9-34.1); MEAN CELL VOLUME 86.7 fL (81.5-99.8); MEAN PLATELET VOLUME 10.1 fL (8.7-11.7); PLATELET CLUMPS FLAG 0 (0-99); PLATELET COUNT 136 10^3/uL (150-400); RED BLOOD CELL COUNT 4.51 10^6/uL (4.40-6.38); RED CELL DISTRIBUTION WIDTH 14.4 % (11.5-15.2)
[2017-08-15 05:42] LABS: ANION GAP 9 mEq/L (8-16); CALCIUM 8.3 mg/dL (8.5-10.4); CARBON DIOXIDE 21 mEq/l (22-31); CHLORIDE 110 mEq/L (97-110); CREATININE 0.9 mg/dL (0.7-1.3); GLOMERULAR FILTRATION RATE > 60; GLUCOSE 83 mg/dL (70-100); POTASSIUM 3.9 mEq/L (3.5-5.2); SODIUM 140 mEq/L (134-144)
[2017-08-15 07:32] VITALS: BP 134/69; PULSE 45; RESP 16; TEMP 97.7
[2017-08-15] MEDS: VITAMIN B COMPLEX 1 EA CAP/TAB PO SCH (07:49)
[2017-08-15] MEDS: APIXABAN 2.5 MG TAB PO SCH (07:49)
[2017-08-15] MEDS: PRESERVISION AREDS2 FORMULA EYE VIT 1 EACH PO SCH (07:49)
[2017-08-15] MEDS: buPROPion SR 100 MG TAB PO SCH (07:49)
[2017-08-15] MEDS: PRAVASTATIN SODIUM 20 MG TAB PO SCH (07:50)
[2017-08-15] MEDS: CHOLECALCIFEROL VIT D3 1,000 UNITS TAB PO SCH (07:50)
--- NOTE | 2017-08-15 09:06 | PCMIDPN ---
Assessment/Plan: # acute rigors, DDx postprocedural urinary tract infection versus inflammatory response to BCG bladder. Suspect inflammatory response due to BCG injection. Doubt disseminated infection due to BCG. Continues to feel well. No new microbiologic data today. Slight increase in Cr at admit, resolved. # pyuria of uncertain etiology, infectious or postprocedural irritation. No dysuria; cultures NGTD, WBC normal, afebrile - at this point no evidence for UTI Plan discharge patient, no further antibiotic therapy I will continue to follow urine cultures as an outpatient no ID follow-up needed Medication Ceftriaxone 1 g IV daily, #4 Microbiology 08/12 blood cultures (2) no growth today 08/12 urine culture: No growth today 08/12 AFB blood culture pending Care coordinated with Dr. Zapien Subjective: patient feeling well leaning towards not taking any further BCG treatments Objective: Vital Signs Temp Pulse Resp BP Pulse Ox 36.5 C 45 L 16 134/69 H 97 08/15/17 07:31 08/15/17 07:31 08/15/17 07:31 08/15/17 07:31 08/15/17 07:31 Microbiology 08/14/17 20:56 Mycobacterial Smear (REJI) - Final Unspecified Laboratory Results 08/15/17 04:50 08/15/17 04:50 08/14/17 08/15/17 08/16/17 05:59 05:59 05:59 Intake Total 2787 1500 Output Total 1750 2320 650 Balance 1037 -820 -650 - Physical Exam General Appearance: alert EENT: No scleral icterus Respiratory: No accessory muscle use Neck: supple Abdomen: normal bowel sounds, non-tender, soft, No tender Male Genitalia: other (no suprapubic tenderness), No pinto Skin: No rash Neuro/Psych: alert, normal mood/affect, oriented x 3 - Time Spent With Patient Time Spent with Patient: greater than 25 minutes Time Spent with Patient: Greater than 25 minutes spent on this patients care, greater than 50% of time spent counseling, educating, and coordinating care regarding the above mentioned plan. ICD10 Worksheet Patient Problems: Problems Problem Status Onset Abdominal pain Acute Bladder cancer Acute Fever and chills Acute Bronchitis Acute Chronic Disease Mgmt/Transitional Care Acute Dehydration Acute GIB (gastrointestinal bleeding) Acute Generalized weakness Acute Intoxication Acute Pneumonia Acute UTI (urinary tract infection) Acute UTI (urinary tract infection) Acute
--- NOTE | 2017-08-15 14:21 | ASDISCHSUM ---
Discharge Information Plan Status:Home with No Needs Medically Cleared to Leave: Discharge Date:08/15/2017 12:22 PM CM D/C Disposition:Home, Routine, Self-Care ADT D/C Disposition:Home, Routine, Self-Care Projected Discharge Date:08/14/2017 12:00 AM Transportation at D/C:Family Discharge Delay Reason: Follow-Up Date:08/14/2017 12:00 AM Discharge Slot: Final Diagnosis: Placement Information Patient Contact Information Contact Name:MIRLANDE Relationship: Address:[address] Work Phone: [place] Alternate Phone: [facility]/Zip Code:[place] [address] Email: Financial Information Financial Class: Primary Plan Desc:MEDICARE INPATIENT Primary Plan Number:[id number] Secondary Plan Desc:[employer]/MDR SUPPLEMENT Secondary Plan Number:[id number] Assessment Information [facility] CM Progress Note CM Note CM Note Notes: CM met w/ pt for dispo planning. OT/PT is recommending home independent with outpatient PT. Pt reports that he will return home w/ supportive w/out any needs. CM available for changes. Date Signed: 08/13/2017 03:05 PM Electronically Signed By:GLENDY Mariscal Intervention Information
--- NOTE | 2017-08-15 17:44 | PDDCSUM ---
Discharge Summary Discharge Summary: DISCHARGE SUMMARY FOLLOW-UP ITEMS: Urine cultures DATE OF ADMISSION: 08/12/2017 DATE OF DISCHARGE: 08/15/2017 DISCHARGE DIAGNOSES: 1. Possible postprocedural urinary tract infection 2. Acute hydronephrosis 3. Chronic bladder cancer CONSULTATIONS: Infectious Disease PROCEDURES / IMAGING: Abdominal CT demonstrating mild hydronephrosis on left CHIEF COMPLAINT: Acute fever SUBJECTIVE: Patient without any fevers, no rigors, ambulating well with physical therapy PHYSICAL EXAM ON DISCHARGE: Afebrile over the last 48 hours, systolic blood pressure 1/20, heart rate 50, ambulating well, feeling well LABS ON DISCHARGE: Urine culture no growth today, blood culture no growth today, creatinine 0.9, white blood count 3300, hemoglobin 12.9 HOSPITAL COURSE BY PROBLEM: 1. Possible postprocedure urinary tract infection. The patient presented after BCG insertion urologically, with fevers and rigors. It is possible this was secondary to urinary tract infection, and the patient received IV antibiotics. We monitored his blood and urine cultures, and after they were no growth for 48 hours, he was discharged safely on 08/15/2017. After consultation with Infectious Disease, it was decided not to discharge him on antibiotics, but rather to monitor his culture data. 2. Acute hydronephrosis. Present on left side, most likely secondary to stenosis in the setting of underlying malignancy, he is currently receiving treatment from his urologist. His creatinine level is normal. 3. Chronic bladder cancer. The patient is currently undergoing treatment with Dr. Miguelito Harper. The patient would like to consider discontinuation of treatment. I recommend that he follow up with his outpatient urologist to discuss this further. DISCHARGE MEDICATIONS: Please see official discharge medication reconciliation sheet in chart , no changes to home medications. DISCHARGE INSTRUCTIONS: Patient should follow up with his outpatient urologist.
== END 2017-08-15 12:22 | disposition home or self-care (01) | DRG 863 ==
LOC: F3E 21:23 → OBSVTOIN 21:29
PROVIDERS: ADMIT Hospitalist; ATTEND Hospitalist
DX: T81.4XXA Infection following a procedure, initial encounter (principal); N39.0 Urinary tract infection, site not specified; N13.30 Unspecified hydronephrosis; C67.9 Malignant neoplasm of bladder, unspecified; I69.319 Unspecified symptoms and signs involving cognitive functions following cerebral infarction; I48.91 Unspecified atrial fibrillation; I10 Essential (primary) hypertension; F32.9 Major depressive disorder, single episode, unspecified; G47.33 Obstructive sleep apnea (adult) (pediatric); F10.10 Alcohol abuse, uncomplicated; Z79.01 Long term (current) use of anticoagulants; Z85.038 Personal history of other malignant neoplasm of large intestine
CPT/HCPCS: 97110-GP; 97116-GP; 97162-GP; 97165-GO; G8978-GP-CI; G8978-GP-CJ; G8979-GP-CI; G8987-GO-CI; G8988-GO-CH; J0696; Q9967

== ENCOUNTER 2017-10-30 13:18 | Inpatient (IN) | payer OTHER, MEDICARE ==
--- NOTE | 2017-10-30 13:39 | EDPHY ---
H & P Stated Complaint: "balance issues" x 3 days-L sided facial numbness episode 2 day ago& cough HPI/ROS: CHIEF COMPLAINT: Cough, worsening balance, facial numbness HISTORY OF PRESENT ILLNESS: This patient is an anticoagulated (Eliquis) 83 year old male complaining of a bad cold and inability to sleep due to coughing. He denies chest pain. Per , long history of URIs. She reports that he has had a difficult year. He was diagnosed with bladder cancer and is status post resection and BCG infusion therapy. now "cancer free:". Three days ago, he developed a productive cough. Unable to sleep well because of cough. History of two prior CVAs, has had significant improvement in balance since that time. At onset of cold, both he and his noticed that his balance was worse than it had been. Nearly fell last night. describes a shuffling gait and drifting to the left. The left side of his face including forehead, cheek, and chin felt numb for about two minutes yesterday. History of episodes of this over 15 years ago when in working [employer]. At that time he experienced both double vision and facial numbness. He was evaluated at that time but the etiology of these symptoms remains unclear. This week as cold symptoms worsened, developed facial numbness that lasted for a couple of minutes and resolved. He is not currently experiencing facial numbness. He does not have any current visual changes. He denies headache. He is not aware of new numbness or new weakness. REVIEW OF SYSTEMS: A ten point review of systems was performed and is negative with the exception of the items mentioned in the HPI. Some of the information was provided by his . Past medical history: 1. CVA with baseline cognitive deficits 2. Pneumonia 3. History of bladder cancer s/p resection and BCG infusion 4. History of GI bleed due to diverticulosis 5. Atrial fibrillation (taking Eliquis) 6. Hearing loss 7. Neuropathy 8. History of colon cancer s/p chemotherapy and radiation 9. Depression 10. Obstructive sleep apnea (CPAP) 11. Hypertension. Past surgical history: 1. Bladder resection Family history: Noncontributory. Social history: Former smoker. Usually consumes two scotch drinks each evening . at bedside. PCP Dr. Campbell. 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 General Appearance: Alert. Vital signs reviewed. Blood pressure 148/81. Eyes: Pupils equal and round, no conjunctival injection, no discharge. Anicteric. ENT, Mouth: Bilateral hearing aides. Mucous membranes are moist, no oropharyngeal erythema or edema. Neck: No lymphadenopathy, supple. Respiratory: Lungs with diminished breath the sounds and some wheezing. Frequent cough. No rhonchi. Cardiovascular: Regular rate and rhythm; systolic murmur present. No rub or gallop. Gastrointestinal: Abdomen is soft and nontender, no masses or organomegaly, bowel sounds normal. Skin: Warm and dry, no rashes on exposed skin, normal color. Back: Nontender to palpation over the thoracolumbar spine. No CVAT. Extremities: No lower extremity edema, no calf tenderness or swelling. Neurological: Alert and oriented. Moving all four extremities easily and equally. Cranial nerves II through XII are examined and are intact with the exception of decreased hearing (visual acuity not tested). Strength is 5- over 5 bilaterally with testing of all major motor groups. Sensation is intact to light touch over all 4 extremities. Deep tendon reflexes are 2+ in the biceps and knees bilaterally. [id number] is performed accurately. Psychiatric: Normal affect. No agitation. - Personal History Current Tetanus/Diphtheria Vaccine: Unsure Current Tetanus Diphtheria and Acellular Pertussis (TDAP): Unsure Tetanus Vaccine Date: longer than 10yrs ago - Medical/Surgical History Hx Asthma: No Hx Chronic Respiratory Disease: No Hx Diabetes: No Hx Cardiac Disease: No Hx Renal Disease: No Hx Cirrhosis: No Hx Alcoholism: Yes Hx HIV/AIDS: No Hx Splenectomy or Spleen Trauma: No Other PMH: HTN, AFIB, COLON CA, SLEEP APNEA, DEPRESSION, CVA, TIA,BLADDER CA-W/ SURGERY - Social History Smoking Status: Former smoker Constitutional: Initial Vital Signs Temperature (C) 36.8 C 10/30/17 13:23 Heart Rate 78 10/30/17 13:23 Respiratory Rate 18 10/30/17 13:23 Blood Pressure 148/81 H 10/30/17 13:23 O2 Sat (%) 90 L 10/30/17 13:23 O2 Delivery Mode Nasal Cannula O2 (L/minute) 2.5 Allergies/Adverse Reactions: amiodarone [Amiodarone] Allergy (Unknown, Verified 06/15/17 20:24) Other-Enter Comments hydromorphone HCl [From Dilaudid] Allergy (Unknown, Verified 06/15/17 20:24) Other-Enter Comments Sulfa (Sulfonamide Antibiotics) Allergy (Verified 06/15/17 20:24) Other-Enter Comments Home Medications: Medication Instructions Recorded C/E/Zn/Cu/OM3/DHA/EPA/LUT/ZEAX 1 each PO HS 11/25/16 [Preservision Areds 2 Softgel] Losartan Potassium [Cozaar 50 mg 100 mg PO HS 11/25/16 (*)] Pravastatin Sodium 20 mg PO DAILY 11/25/16 Cholecalciferol Vit D3 [Vitamin D3 1,000 units PO HS 11/29/16 (*)] Vit B Comp/C/FA/Iron/Vit E 1 each PO DAILY 11/29/16 [Vitamin B Complex Tablet] Apixaban [Eliquis] 2.5 mg PO BID 05/27/17 buPROPion SR [Wellbutrin 100mg SR 100 mg PO DAILY 05/27/17 (*)] Medical Decision Making ED Course/Re-evaluation: Plan for labs including CBC, BMP. Plan for chest x-ray, CT head. Head CT does not show evidence of bleed. I have reviewed the studies. I have also reviewed the radiology report. Patient is not currently having symptoms of facial numbness or visual changes. He has not had any of these symptoms today. He is taking Eliquis as prescribed. At this point in time I am not particularly concerned about a TIA/CVA. I ambulated with him in the hallway and his gait was stable. He was not off balance nor did he veer to either direction. Two-view chest x-ray reviewed by me. I have also reviewed the radiologist's report. There is no evidence of infiltrate. It is my impression that the patient likely has a respiratory infection, viral. He is not febrile. I was hoping that he would be able to return home. However, he is noted to be hypoxic when his oxygen is removed with oxygen saturations ranging from 86-91%. His oxygenation drops down to 86% while he is resting in bed. I do not feel that he can safely return home. He does have a persistent nonproductive cough. Respiratory pathogen panel will be sent. He is being admitted to the hospitalist service. Dr. OLIVIA Mary, admitting physician. Differential Diagnosis: Shortness of breath including but not limited to pulmonary infectious process, COPD, asthma, pulmonary embolus and congestive heart failure. - Data Points Laboratory Results: Laboratory Results 10/30/17 14:15 10/30/17 14:15 Medications Given: Albuterol/Ipratropium (Duoneb) 3 ml IH QID FRANCESCA Stop: 04/28/18 20:59 Last Admin: 11/01/17 06:13 Dose: 3 ml Apixaban (Eliquis) 2.5 mg PO BID FRANCESCA Stop: 04/28/18 20:59 Last Admin: 11/01/17 08:39 Dose: 2.5 mg Bupropion HCl (Wellbutrin Sr) 100 mg PO DAILY FRANCESCA Stop: 04/29/18 08:59 Last Admin: 11/01/17 08:40 Dose: 100 mg Cholecalciferol (Vitamin D) 1,000 units PO HS FRANCESCA Stop: 04/28/18 20:59 Last Admin: 10/31/17 22:32 Dose: 1,000 units Guaifenesin (Mucinex) 1,200 mg PO BID FRANCESCA Stop: 04/28/18 20:59 Last Admin: 11/01/17 08:39 Dose: 1,200 mg Losartan Potassium (Cozaar) 100 mg PO HS FRANCESCA Stop: 04/28/18 20:59 Last Admin: 10/31/17 22:31 Dose: 100 mg Multivitamins/Minerals (Preservision Areds2 Formula) 1 each PO HS FRANCESCA Stop: 04/28/18 20:59 Last Admin: 10/31/17 22:31 Dose: 1 each Pravastatin Sodium (Pravachol) 20 mg PO DAILY FRANCESCA Stop: 04/29/18 08:59 Last Admin: 11/01/17 08:39 Dose: 20 mg Prednisone (Prednisone) 40 mg PO DAILY FRANCESCA Stop: 04/29/18 13:44 Last Admin: 11/01/17 08:39 Dose: 40 mg Vitamin B Complex (Vitamin B Complex) 1 ea PO DAILY FRANCESCA Stop: 04/29/18 08:59 Last Admin: 11/01/17 08:39 Dose: 1 ea Discontinued Medications Sodium Chloride (Ns) 500 mls @ 1,500 mls/hr IV ONCE ONE Stop: 10/30/17 16:27 Last Admin: 12/01/17 17:23 Dose: 500 mls Departure - Departure Disposition: [facility] Inpatient Acute Clinical Impression: Respiratory tract infection Condition: Good Report Scribed for: Cyndie Grier Report Scribed by: Claire Solis Date of Report: 10/30/17 Time of Report: 13:44 Physician Review and Approval Statement: 10/30/17 13:38 Portions of this note were transcribed by the durable medical equipment technician. I, Dr. Cyndie Grier, personally performed the history, physical exam, and medical decision- making; and confirmed the accuracy of the information in the transcribed note.
[2017-10-30 14:41] LABS: % IMMATURE GRANULYOCYTES 0.7 % (0.0-1.1); ABSOLUTE IMMATURE GRANULOCYTES 0.03 10^3/uL (0.00-0.10); ADD DIFF? NO; ADD MORPH? NO; ADD SCAN? NO; ATYPICAL LYMPHOCYTE FLAG 20 (0-99); FRAGMENT RBC FLAG 10 (0-99); HEMOGLOBIN 16.7 g/dL (13.7-17.5); LEFT SHIFT FLG 0 (0-99); LIPEMIA HEMOLYSIS FLAG 90 (0-99); MEAN CELL HEMOGLOBIN 30.2 pg (27.9-34.1); MEAN CELL HEMOGLOBIN CONCENTR. 35.5 g/dL (32.4-36.7); MEAN PLATELET VOLUME 9.8 fL (8.7-11.7); PLATELET CLUMPS FLAG 10 (0-99); PLATELET COUNT 155 10^3/uL (150-400); RED BLOOD CELL COUNT 5.53 10^6/uL (4.40-6.38); RED CELL DISTRIBUTION WIDTH 13.8 % (11.5-15.2)
[2017-10-30 14:50] LABS: ANION GAP 15 mEq/L (8-16); CALCIUM 9.4 mg/dL (8.5-10.4); CARBON DIOXIDE 21 mEq/l (22-31); CHLORIDE 102 mEq/L (97-110); CREATININE 1.1 mg/dL (0.7-1.3); GLOMERULAR FILTRATION RATE > 60; GLUCOSE 93 mg/dL (70-100); POTASSIUM 4.5 mEq/L (3.5-5.2); SODIUM 138 mEq/L (134-144)
[2017-10-30] MEDS ORDERED: NS 500 ML IV ONE (16:08)
[2017-10-30] MEDS ORDERED: ONDANSETRON DISINTEGRATING 4 MG TAB PO PRN (16:08)
[2017-10-30] MEDS ORDERED: ALBUTEROL 3 ML DEYVIAL IH PRN (16:08)
[2017-10-30] MEDS ORDERED: ONDANSETRON 4 MG/2 ML VIAL IVP PRN (16:08)
[2017-10-30] MEDS ORDERED: ACETAMINOPHEN 325 MG TAB PO PRN (16:08)
--- NOTE | 2017-10-30 20:12 | GHP ---
[f rep st] HISTORY AND PHYSICAL DATE OF ADMISSION: 10/30/2017 CHIEF COMPLAINT: Cough and shortness of breath. HISTORY OF PRESENT ILLNESS: An 82-year-old male, with an extensive past medical history, including b ladder cancer, recently treated with BCG infusion therapy, who presents with several days of worsenin g shortness of breath and cough productive of discolored sputum, per his description. Patient endors es progressive extreme fatigue associated with a cough and shortness of breath and subjective fevers. Denies any nausea or vomiting. Denies changes in his bowel habits. Reports that his appetite has not been excellent, but better than some of his previous illnesses. Denies dysuria, hematuria. Jose es myalgias. Denies lower extremity edema or rashes. PAST MEDICAL HISTORY: 1. Bladder cancer status post resection in January and BCG infusion therapy. 2. Atrial fibrillation, on anticoagulation. 3. Hypertension. 4. History of colon cancer, status post chemo and radiation. 5. History of CVA with baseline cognitive deficits. 6. Lower GI bleed due to diverticulosis. 7. Depression. 8. TAMARA, uses CPAP at home. SOCIAL HISTORY: Negative for tobacco. Occasional alcohol. No illicit drugs or marijuana. ADVANCED DIRECTIVES: Patient is full cor, full tube. His is his medical decision maker. REVIEW OF SYSTEMS: A 10-point review of systems is negative with the exception of that reported in t he HPI. FAMILY HISTORY: Both parents are . PHYSICAL EXAMINATION: VITAL SIGNS: Blood pressure 168/91, heart rate 60, respiratory rate 18, 91% o n 1 L, 36.7. GENERAL: This is a healthy-appearing elderly male, sitting up in bed. HEENT: Notable for moist mucous membranes. Eyes: Negative for any icterus. CARDIAC: Patient is normal rate and rhythm. A systolic murmur is appreciated. PULMONARY: Patient has good breath sounds bilaterally, h as wheezing with cough. No rales or rhonchi are appreciated. GASTROINTESTINAL: Positive bowel soun ds. ABDOMEN: Soft. MUSCULOSKELETAL: Negative for any lower extremity edema. SKIN: Negative for a ny rashes. NEUROLOGIC: Patient is alert and oriented x3. PSYCHIATRIC: He is pleasant and cooperat bryce on interview and examination. LABORATORY DATA: White count 4.5, hematocrit 47.0, platelet count 155. Sodium 138, creatinine 1.1. Chest x-ray, which I personally reviewed and interpreted, shows interstitial markings, no clear infi ltrates. Noncontrast CT of the head, which I personally reviewed and interpreted, shows no acute str okes. Respiratory pathogen panel is positive for parainfluenza virus. ASSESSMENT AND PLAN: This is an 82-year-old male presenting with shortness of breath. 1. Acute viral pneumonia secondary to parainfluenza virus type 4. Patient's symptoms of cough, sput um, shortness of breath and hypoxia are all consistent. We will provide supportive care with inhaled beta agonist, Mucinex, and supplemental oxygen. Optimistic the patient may be dischargeable in the morning if he responds well to care. 2. Acute hypoxic respiratory failure secondary to parainfluenza virus. The patient has had several days of symptoms with no known underlying lung disease. We will treat with inhaled medications and s upportive care. 3. Hypertension. We will continue patient's home blood pressure medications. Systolics on admissio n are in the 140s to 160s, can certainly tolerate his evening dose of blood pressure medications. 4. Bladder cancer. Patient is in the process of active treatment. He will continue to follow with his outpatient urology team. 5. Transient left-sided numbness. Patient reported this prior to presentation. It has resolved. I nitial brain imaging is negative. Patient is already on blood thinners, as well as statin and blood pressure medications. We will continue to monitor is neurologic examination during this hospital sta y, would not obtain additional brain imaging at this time. 6. Prophylaxis. Patient is on full-dose anticoagulation. DIET: Regular. DISPOSITION: I expect in less than 2 midnights if patient responds well to inhaled beta agonist, Muc inex, supportive care and supplemental oxygen. I have discussed the case with the emergency room physician. Patient will be triaged to a medical-pink rgical floor for care. /[id number]/MODL
[2017-10-30] MEDS: IPRATROPIUM/ALBUTEROL 3 ML DEYVIAL IH SCH (20:30)
[2017-10-30] MEDS: LOSARTAN POTASSIUM 50 MG TAB PO SCH (22:38)
[2017-10-30] MEDS: guaiFENesin 600 MG TAB.ER PO SCH (22:38)
[2017-10-30] MEDS: APIXABAN 2.5 MG TAB PO SCH (22:38)
[2017-10-30] MEDS: CHOLECALCIFEROL VIT D3 1,000 UNITS TAB PO SCH (22:39)
[2017-10-30] MEDS: PRESERVISION AREDS2 FORMULA EYE VIT 1 EACH PO SCH (22:39)
[2017-10-31 04:50] LABS: % IMMATURE GRANULYOCYTES 0.6 % (0.0-1.1); ABSOLUTE IMMATURE GRANULOCYTES 0.02 10^3/uL (0.00-0.10); ADD DIFF? NO; ADD MORPH? NO; ADD SCAN? NO; ATYPICAL LYMPHOCYTE FLAG 40 (0-99); FRAGMENT RBC FLAG 0 (0-99); HEMATOCRIT 45.3 % (40.0-51.0); HEMOGLOBIN 15.6 g/dL (13.7-17.5); LEFT SHIFT FLG 0 (0-99); LIPEMIA HEMOLYSIS FLAG 90 (0-99); MEAN CELL HEMOGLOBIN 29.6 pg (27.9-34.1); MEAN CELL HEMOGLOBIN CONCENTR. 34.4 g/dL (32.4-36.7); PLATELET CLUMPS FLAG 0 (0-99); PLATELET COUNT 115 10^3/uL (150-400); RED BLOOD CELL COUNT 5.27 10^6/uL (4.40-6.38); RED CELL DISTRIBUTION WIDTH 13.6 % (11.5-15.2)
[2017-10-31 05:10] LABS: ANION GAP 10 mEq/L (8-16); CALCIUM 8.7 mg/dL (8.5-10.4); CARBON DIOXIDE 23 mEq/l (22-31); CHLORIDE 106 mEq/L (97-110); CREATININE 1.1 mg/dL (0.7-1.3); GLOMERULAR FILTRATION RATE > 60; GLUCOSE 95 mg/dL (70-100); POTASSIUM 3.9 mEq/L (3.5-5.2); SODIUM 139 mEq/L (134-144)
[2017-10-31] MEDS: IPRATROPIUM/ALBUTEROL 3 ML DEYVIAL IH SCH ×4 (06:01→20:29)
[2017-10-31] MEDS ORDERED: VIT B COMP PO SCH (09:00)
[2017-10-31] MEDS ORDERED: PRESERVISION AREDS2 FORMULA EYE VIT 1 EACH PO SCH (09:00)
[2017-10-31] MEDS ORDERED: IRON PO SCH (09:00)
[2017-10-31] MEDS ORDERED: [UNRECOGNIZED DRUG - OTHER] PO SCH (09:00)
[2017-10-31] MEDS ORDERED: VIT E PO SCH (09:00)
[2017-10-31] MEDS: guaiFENesin 600 MG TAB.ER PO SCH ×2 (09:04→22:31)
[2017-10-31] MEDS: buPROPion SR 100 MG TAB PO SCH (09:04)
[2017-10-31] MEDS: PRAVASTATIN SODIUM 20 MG TAB PO SCH (09:04)
[2017-10-31] MEDS: VITAMIN B COMPLEX 1 EA CAP/TAB PO SCH (09:05)
[2017-10-31] MEDS: APIXABAN 2.5 MG TAB PO SCH ×2 (09:05→22:31)
--- NOTE | 2017-10-31 15:22 | HOSPPROG ---
Hospitalist Progress Note Assessment/Plan: * COPD exacerbation due to viral bronchitis -prednisone, nebs -still wheezy/hypoxic * Parainfluenza bronchitis -supportive care * Afib -Xarelto * Bladder cancer s/p bcg tx * CVA with cognitive deficits * TAMARA - CPAP Subjective: no new complaints. Objective: Vital Signs Temp Pulse Resp BP Pulse Ox 36.4 C 63 16 127/74 H 94 10/31/17 12:00 10/31/17 12:00 10/31/17 12:00 10/31/17 12:00 10/31/17 12:43 Microbiology 10/30/17 16:35 Respiratory Panel (PCR) - Final Nasal, Sinus - Swab Parainfluenza Virus Type 4 Laboratory Results 10/31/17 04:32 10/31/17 04:32 10/30/17 10/31/17 11/01/17 05:59 05:59 05:59 Intake Total 1450 Output Total 900 250 Balance 550 -250 CXR viewed, my personal interpretation is - no infiltrate HEAD CT - negative - Physical Exam Constitutional: no apparent distress, appears nourished, not in pain Cardiovascular: regular rate and rhythym, no murmur, rub, or gallop Respiratory: no respiratory distress, expiratory wheeze, inspiratory crackles, No rhonchi Gastrointestinal: normoactive bowel sounds, soft, non-tender abdomen, no palpable masses Skin: no rashes or abrasions, no fluctuance, no induration Neurologic: AAOx3, sensation intact bilaterally Psychiatric: interacting appropriately, not anxious, not encephalopathic, thought process linear ICD10 Worksheet Patient Problems: Problems Problem Status Onset Hypoxia Acute Upper respiratory infection Acute Abdominal pain Acute Bladder cancer Acute Bronchitis Acute Chronic Disease [facility]/Transitional Care Acute Dehydration Acute Fever and chills Acute GIB (gastrointestinal bleeding) Acute Generalized weakness Acute Intoxication Acute Pneumonia Acute UTI (urinary tract infection) Acute UTI (urinary tract infection) Acute
[2017-10-31] MEDS: predniSONE 20 MG TAB PO SCH (15:41)
--- NOTE | 2017-10-31 16:34 | PDMN ---
Medical Necessity Medical necessity: Pt meets INPT criteria per MD as of 10/30/17; est. LOS >2 MN for ongoing eval/mgmt of COPD exacerbation d/t viral bronchitis, parainfluenza bronchitis; hx afib, bladder cancer s/p bcg tx, CVA, TAMARA per MD progress note.
[2017-10-31] MEDS: PRESERVISION AREDS2 FORMULA EYE VIT 1 EACH PO SCH (22:31)
[2017-10-31] MEDS: LOSARTAN POTASSIUM 50 MG TAB PO SCH (22:31)
[2017-10-31] MEDS: CHOLECALCIFEROL VIT D3 1,000 UNITS TAB PO SCH (22:32)
[2017-11-01] MEDS: IPRATROPIUM/ALBUTEROL 3 ML DEYVIAL IH SCH ×3 (06:13→15:47)
[2017-11-01] MEDS: guaiFENesin 600 MG TAB.ER PO SCH (08:39)
[2017-11-01] MEDS: predniSONE 20 MG TAB PO SCH (08:39)
[2017-11-01] MEDS: APIXABAN 2.5 MG TAB PO SCH (08:39)
[2017-11-01] MEDS: PRAVASTATIN SODIUM 20 MG TAB PO SCH (08:39)
[2017-11-01] MEDS: VITAMIN B COMPLEX 1 EA CAP/TAB PO SCH (08:39)
[2017-11-01] MEDS: buPROPion SR 100 MG TAB PO SCH (08:40)
--- NOTE | 2017-11-01 10:20 | PDIAF ---
- Diagnosis Diagnosis: COPD exacerbation Code Status: Full Code - Medication Management Discharge Medications: Medications to Continue on Transfer C/E/Zn/Cu/OM3/DHA/EPA/LUT/ZEAX [Preservision Areds 2 Softgel] 1 each PO HS 11/25 [Last Taken 10/29/17] Losartan Potassium [Cozaar 50 mg (*)] 100 mg PO HS 11/25/16 [Last Taken 10/29/17 ] Pravastatin Sodium 20 mg PO DAILY 11/25/16 [Last Taken 10/30/17] Cholecalciferol Vit D3 [Vitamin D3 (*)] 1,000 units PO HS 11/29/16 [Last Taken 10/29/17] Vit B Comp/C/FA/Iron/Vit E [Vitamin B Complex Tablet] 1 each PO DAILY 11/29/16 [ Last Taken 10/30/17] Apixaban [Eliquis] 2.5 mg PO BID 05/27/17 [Last Taken 10/30/17 09:00] buPROPion SR [Wellbutrin 100mg SR (*)] 100 mg PO DAILY 05/27/17 [Last Taken 12/16] Ipratropium/Albuterol [Combivent Respimat Inhal Mal[place](*)] 1 inh IH QID #1 mdi [Last Taken Unknown] predniSONE 40 mg PO DAILY #6 tablet 11/01/17 [Last Taken Unknown] Discharge Medications: Refer to the Discharge Home Medication list for PRN reason. - Orders Services needed: Home Care, Registered Nurse, Physical Therapy, Occupational Therapy Home Care Face to Face: I certify that this patient was under my care and that I had the required uxed-kx-eckn encounter meeting the encounter requirements on the discharge day. My findings support the fact that the patient is homebound as defined in Home Care Face to Face Continued: CMS Chapter 7 Medicare Benefits Manual 30.1.1 , The condition of the patient is such that there exists a normal inability to leave home and consequently, leaving home would require a considerable and taxing effort. Isolation Type: Droplet Isolation Oxygen: continue until RA sat > 90 % Diet Recommendation: no restrictions on diet - Follow Up Care Current Providers and Referrals: Rebeka Campbell [Primary Care Provider] - As per Instructions
--- NOTE | 2017-11-01 10:21 | PDHOMEO2F ---
Home Oxygen Face to Face Home Orders: I certify that a physician or a nurse practitioner or physician's account assistant has had a [id number] encounter with this patient on the date of this order due to the diagnosis listed, which relates to the primary reason the patient requires home oxygen. Alternative treatments have been tried, or considered, and deemed ineffective. It is anticipated that supplemental oxygen will result in improvement with treatment. Home oxygen qualifying diagnosis: COPD SpO2 on room air (%): 87 Frequency of home oxygen needed: continuous Home oxygen liters per minute: 1 Home oxygen delivery device: nasal cannula Concentrator: Yes E-tanks for mobility and back up: Yes If ordering portable O2, is the patient mobile in the home?: Yes I certify that, based on these findings, the home oxygen is medically necessary for this patient for the following length of time. Length of time home oxygen needed: 1 month
--- NOTE | 2017-11-01 12:48 | ASMTCMCOM ---
CM Note CM Note Notes: 82 year old male admitted for Hypoxia, SOB, PNA, COPD exascerbation. Has a hx of HTN, CVA, Colon and Bladder CA, Lower GIB, TAMARA, Afib, Depression. Therapies to [facility] to follow. Date Signed: 11/01/2017 12:47 PM Electronically Signed By:Leandra Mar LCSW
[2017-11-01 15:18] VITALS: BP 130/75; PULSE 56; TEMP 97.9
[2017-11-01 15:53] VITALS: RESP 16; O2SAT 94
--- NOTE | 2017-11-01 17:56 | ASDISCHSUM ---
Discharge Information Plan Status:Home with Home Health Medically Cleared to Leave:10/31/2017 Discharge Date:11/01/2017 04:56 PM CM D/C Disposition:Home Health Service ADT D/C Disposition:Home Health Service Projected Discharge Date:11/01/2017 05:00 PM Transportation at D/C:Family Discharge Delay Reason: Follow-Up Date:11/01/2017 05:00 PM Discharge Slot:2 - 12:01 pm - 18:00 pm Final Diagnosis:COPD Exascerbation Placement Information Referral Type:*Home Health Care Services Referral ID:[id number] Provider Name:[facility] Care Address 1:[address] [facility] [address] Address 2: City:[place] Selection Factors: State:[place] Patient Contact Information Contact Name:MIRLANDE Relationship: Address:[facility] [address] Work Phone: City:[place] Alternate Phone: State/Zip Code:[place] [address] Email: Financial Information Financial Class: Primary Plan Desc:MEDICARE OUTPATIENT Primary Plan Number:[id number] Secondary Plan Desc:[employer]/MDR SUPPLEMENT Secondary Plan Number:[id number] Assessment Information [facility] CM Progress Note CM Note CM Note Notes: 82 year old male admitted for Hypoxia, SOB, PNA, COPD exascerbation. Has a hx of HTN, CVA, Colon and Bladder CA, Lower GIB, TAMARA, Afib, Depression. Therapies to eval, CM to follow. Date Signed: 11/01/2017 12:47 PM Electronically Signed By:Leandra Mar LCSW Case Management Discharge Plan Note Case Management Discharge Discharge Order Complete? Answers: Yes Patient to Obtain Answers: via Family Medications Transportation Arranged Answers: Family/Friends Transport will Pick (Date 11/01/2017 01:00 PM & Time) Faxed Final Orders Answers: Yes Notes: [facility] Agency/Facility Transfer Answers: Yes Notes: [facility] Report Printed & Faxed to Receiving Agency Family Notified Answers: Yes Notes: Family to transport Discharge Comments Notes: Patient has had [facility] in the past and would like them on discharge. Date Signed: 11/01/2017 12:50 PM Electronically Signed By:Leandra Mar LCSW Intervention Information
--- NOTE | 2017-11-01 19:10 | GDS ---
[f rep st] DISCHARGE SUMMARY DISCHARGE DIAGNOSES: 1. Chronic obstructive pulmonary disease exacerbation due to viral bronchitis. 2. Parainfluenza infection. 3. Atrial fibrillation. 4. Bladder cancer, status post BCG treatments. 5. History of stroke with mild cognitive deficits. 6. Obstructive sleep apnea, on CPAP. 7. History of diverticular bleed. 8. Transient left-sided facial numbness. HISTORY: The patient is an 82-year-old male who developed a bronchitis. His also has the same infection. He became hypoxemic and was admitted to the hospital with extensive wheezing heard. He d oes have a distant smoking history. He may have an element of COPD. He was treated for COPD exacerb ation with prednisone and nebulizers, and his pulmonary exam has improved. He does have a small oxyg en requirement, 1 L, upon hospital discharge. Respiratory PCR was positive for parainfluenza, which was treated supportively. We did not feel he had an acute bacterial infection, and antibiotics were not administered. On the day prior to admission, he did have an episode of transient left-sided facial numbness that la sted 2 minutes. Symptoms were all resolved by the time he presented. A head CT was negative. He is already on Eliquis and a statin drug, and no further workup was obtained at this time. He may have had a small TIA, and an outpatient provider can decide whether or not to pursue this any further. He was seen by Physical and Occupational Therapy and cleared to discharge home. We did arrange for [facility] upon discharge. DISCHARGE MEDICATIONS: Please see computerized record for full detailed list. New medications: 1. Prednisone 40 mg p.o. daily for 3 more doses. 2. Combivent 1 puff 4 times a day. ADDITIONAL DISCHARGE INSTRUCTIONS: 1. Home health, PT, OT, VNS arranged. 2. Home oxygen at 1 L to continue until room air saturations greater than 90%. 3. Follow up with primary care, Dr. Rebeka Campbell. Greater than 30 minutes' time was spent arranging this discharge. Patient seen and examined by me on the day of discharge. /[id number]/MODL
== END 2017-11-01 16:56 | disposition home health service (06) | DRG 195 ==
LOC: OBSVTOIN 16:14 → F1N 17:15
PROVIDERS: ADMIT Hospitalist; ATTEND Hospitalist
DX: J12.2 Parainfluenza virus pneumonia (principal); J20.4 Acute bronchitis due to parainfluenza virus; I48.91 Unspecified atrial fibrillation; C67.9 Malignant neoplasm of bladder, unspecified; G47.33 Obstructive sleep apnea (adult) (pediatric); I69.319 Unspecified symptoms and signs involving cognitive functions following cerebral infarction; I10 Essential (primary) hypertension; Z79.01 Long term (current) use of anticoagulants; Z87.891 Personal history of nicotine dependence
CPT/HCPCS: 97161-GP; 97165-GO; G8978-GP-CI; G8979-GP-CI; G8980-GP-CI; G8987-GO-CJ; G8988-GO-CI

== ENCOUNTER → 2017-12-14 | Outpatient (CLI) | payer OTHER, MEDICARE | LOC: FCPNEURO 20:00 | PROVIDERS: ATTEND Psychiatry & Neurology Sleep Medicine | DX: G47.33 Obstructive sleep apnea (adult) (pediatric) (principal); G47.39 Other sleep apnea ==

== ENCOUNTER → 2018-02-05 | Outpatient (CLI) | payer OTHER, MEDICARE | LOC: FCPNEURO 20:00 | PROVIDERS: ATTEND Psychiatry & Neurology Sleep Medicine | DX: G47.33 Obstructive sleep apnea (adult) (pediatric) (principal); G47.39 Other sleep apnea; G47.61 Periodic limb movement disorder ==

== ENCOUNTER → 2019-01-31 | Outpatient (CLI) | payer OTHER, MEDICARE ==
[~2019-01-31] MED LIST: IOPAMIDOL (ISOVUE-300) 100 ML BTL ONE
== END ==
LOC: FIMAGING 15:16
PROVIDERS: ATTEND Urology
DX: N32.89 Other specified disorders of bladder (principal); I72.2 Aneurysm of renal artery; N40.0 Benign prostatic hyperplasia without lower urinary tract symptoms; J43.9 Emphysema, unspecified
CPT/HCPCS: 74178; Q9967; 82565-PO

== ENCOUNTER 2019-02-12 09:49 | Inpatient (IN) | payer OTHER, MEDICARE ==
[2019-02-12] MEDS ORDERED: ACETAMINOPHEN 325 MG TAB PO PRN (13:53)
[2019-02-12] MEDS ORDERED: HEPARIN 10,000 UNIT/10 ML MDV (1,000 UNIT/ML) IVP PRN (14:13)
[2019-02-12] MEDS ORDERED: HEPARIN 10,000 UNIT/10 ML MDV (1,000 UNIT/ML) IVP ONE (14:13)
[2019-02-12] MEDS ORDERED: ONDANSETRON DISINTEGRATING 4 MG TAB PO PRN (14:14)
--- NOTE | 2019-02-12 14:27 | PDHOSCONS ---
History and Physical - Chief Complaint medical management, bridging therapy - History of Present Illness This is a 83 you male with hx of Bladder cancer s/p resection who has recurrence of mass and has been admitted by Urology for tumor resection. We are asked to consult regarding his mmp including need for bridging anticoagulation therapy. He has a hx of pAfib, TIA, Stroke, and is on AC with his last dose being last night. He is on Aspirin and has held this for about 6 days. He reports intermittent Afib, last episode a few months ago, but is not on rate controlling agents for unclear reasons. He has a hx of several TIA and strokes with the last event during December of this year. He has mild cognitive disfunction due to this. He has a hx of COPD but only uses O2 with his CPAP at night for which he uses for TAMARA. He denies any cp or sob, n/v, abd pain. 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 He denies fever, generalized weakness, focal weakens, or other rash PMHx: pafib, chronic ac, TIA, stroke, diverticular bleed, depression, TAMARA, COPD, nocturnal hypoxemia, mild cognitive defect (reported on prior records), colon cancer, bladder cancer PShx: bladder tumor resection SocHx: ex tobacco user, drinks 2 whiskys daily FmHx: non contributory History Information - Allergies/Home Medication List Allergies/Adverse Reactions: amiodarone [Amiodarone] Allergy (Verified 02/02/19 15:33) experiences all side effects hydromorphone HCl [From Dilaudid] Allergy (Verified 02/02/19 15:33) makes him crazy per Home Medications: Aspirin EC [Aspirin EC 81 mg (*)] 81 mg PO DAILY 01/17/19 [Last Taken 02/06/19] Atorvastatin Calcium [Lipitor 40 mg (*)] 40 mg PO DAILY 01/17/19 [Last Taken 09:15] Escitalopram Oxalate [Lexapro] 10 mg PO DAILY 01/17/19 [Last Taken 02/12/19 09: 15] Apixaban [Eliquis] 2.5 mg PO BID 02/12/19 [Last Taken 02/12/19 09:00] C/E/Zn/Cu/OM3/DHA/EPA/LUT/ZEAX [Preservision Areds 2 Softgel] 1 each PO HS 02/12 [Last Taken 02/11/19] Cholecalciferol Vit D3 [Vitamin D3 (*)] 1,000 units PO DAILY 02/12/19 [Last Taken 02/12/19] Cyanocobalamin [Vitamin B12 (*)] 1,000 mcg PO DAILY 02/12/19 [Last Taken ] Losartan Potassium 100 mg PO HS 02/12/19 [Last Taken 02/11/19] Valacyclovir HCl [Valtrex] 1,000 mg PO BID PRN 02/12/19 [Last Taken 3 Weeks Ago ~01/22/19] I have personally reviewed and updated: medical history, social history - Social History Smoking Status: Former smoker Review of Systems Review of Systems: ROS: 10pt was reviewed & negative except for what was stated in HPI & below Physical Exam Physical Exam: Constitutional: no apparent distress Eyes: PERRL, EOMI Ears, Nose, Mouth, Throat: moist mucous membranes, hearing normal Cardiovascular: regular rate and rhythym, No edema Respiratory: no respiratory distress, no rales or rhonchi, clear to auscultation Gastrointestinal: normoactive bowel sounds, soft, non-tender abdomen Skin: warm, rash (slight macular erythematous patch on thigh, no vesicles. ) Musculoskeletal: full muscle strength Neurologic: AAOx3 Psychiatric: interacting appropriately, not anxious, not encephalopathic Lymph, Heme, Immunologic: No petechiae Assessment & Plan Assessment: #Bladder Mass -resection per Urology #chronic AC for hx of Afib and CVA -hold Eliquis -start Heparin #pAfib, not in afib, has episodes every few months -unclear why he is not on a rate controlling agent but possibly due to Bradycardia as HR is in low 50's. Will monitor closely #Bradycardia, not reported. Will order EKG. Telemetry. For now, no rate limiting agents #hx of COPD, not in E #TAMARA, CPAP #Depression, home meds Full code Thank you for this consult, we will follow along
[2019-02-12 15:25] LABS: PLATELET COUNT 156 10^3/uL (150-400)
[2019-02-12] MEDS: valACYclovir 500 MG TAB PO SCH ×2 (15:32→21:41)
[2019-02-12] MEDS: HEPARIN/DEXTROSE 500 ML IV SCH (15:41)
[2019-02-12 15:45] LABS: INR 1.06 (0.83-1.16); PROTIME(PATIENT) 13.4 SEC (12.0-15.0)
--- NOTE | 2019-02-12 19:37 | PDGENHP ---
History and Physical - Chief Complaint bladder tumor - History of Present Illness 83M w recent TIA, hx strokes, TIAs, pAFib, colon cancer, COPD and hx bladder cancer. Surveillance cystoscopy in 10/2018 demonstrated recurrent tumor. Here for TURBT on Thursday02/14/2019. On Eliquis for TIA/stroke prevention. Recommendations from his PCP and neurologist were for heparin bridging given recent suspected TIA in 12/2018. Also needs very tight BP perioperatively. Patient without complaints currently. Did have diarrhea yesterday, none today. Feels this diarrhea is "stress related ". [place] recent "herpes" on his thigh was coming back, but started a medication to help, which he takes when it flares. History Information - Allergies/Home Medication List Allergies/Adverse Reactions: amiodarone [Amiodarone] Allergy (Verified 02/02/19 15:33) experiences all side effects hydromorphone HCl [From Dilaudid] Allergy (Verified 02/02/19 15:33) makes him crazy per Home Medications: Aspirin EC [Aspirin EC 81 mg (*)] 81 mg PO DAILY 01/17/19 [Last Taken 02/06/19] Atorvastatin Calcium [Lipitor 40 mg (*)] 40 mg PO DAILY 01/17/19 [Last Taken 09:15] Escitalopram Oxalate [Lexapro] 10 mg PO DAILY 01/17/19 [Last Taken 02/12/19 09: 15] Apixaban [Eliquis] 2.5 mg PO BID 02/12/19 [Last Taken 02/12/19 09:00] C/E/Zn/Cu/OM3/DHA/EPA/LUT/ZEAX [Preservision Areds 2 Softgel] 1 each PO HS 02/12 [Last Taken 02/11/19] Cholecalciferol Vit D3 [Vitamin D3 (*)] 1,000 units PO DAILY 02/12/19 [Last Taken 02/12/19] Cyanocobalamin [Vitamin B12 (*)] 1,000 mcg PO DAILY 02/12/19 [Last Taken ] Losartan Potassium 100 mg PO HS 02/12/19 [Last Taken 02/11/19] Valacyclovir HCl [Valtrex] 1,000 mg PO BID PRN 02/12/19 [Last Taken 3 Weeks Ago ~01/22/19] I have personally reviewed and updated: family history, medical history, social history, surgical history - Social History Smoking Status: Former smoker Review of Systems Review of Systems: ROS: 10pt was reviewed & negative except for what was stated in HPI & below Physical Exam Physical Exam: Gen NAD A&O CV regular Lungs normal effort Abd soft Ext warm Temp Pulse Resp BP Pulse Ox 36.5 C 52 L 20 156/80 H 88 L 02/12/19 16:45 02/12/19 16:45 02/12/19 16:45 02/12/19 16:45 02/12/19 16:45 Lab Data & Imaging Review 02/12/19 15:03 02/12/19 15:03 WBC 5.25 10^3/uL (3.80-9.50) 02/12/19 15:03 RBC 4.79 10^6/uL (4.40-6.38) 02/12/19 15:03 Hgb 14.1 g/dL (13.7-17.5) 02/12/19 15:03 Hct 42.4 % (40.0-51.0) 02/12/19 15:03 MCV 88.5 fL (81.5-99.8) 02/12/19 15:03 MCH 29.4 pg (27.9-34.1) 02/12/19 15:03 MCHC 33.3 g/dL (32.4-36.7) 02/12/19 15:03 RDW 13.7 % (11.5-15.2) 02/12/19 15:03 Plt Count 156 10^3/uL (150-400) 02/12/19 15:03 MPV 10.9 fL (8.7-11.7) 02/12/19 15:03 Neut % (Auto) 69.7 % (39.3-74.2) 02/12/19 15:03 Lymph % (Auto) 17.0 % (15.0-45.0) 02/12/19 15:03 Ector % (Auto) 9.1 % (4.5-13.0) 02/12/19 15:03 Eos % (Auto) 3.6 % (0.6-7.6) 02/12/19 15:03 Baso % (Auto) 0.4 % (0.3-1.7) 02/12/19 15:03 Nucleat RBC Rel Count 0.0 % (0.0-0.2) 02/12/19 15:03 Absolute Neuts (auto) 3.66 10^3/uL (1.70-6.50) 02/12/19 15:03 Absolute Lymphs (auto) 0.89 10^3/uL (1.00-3.00) L 02/12/19 15:03 Absolute Monos (auto) 0.48 10^3/uL (0.30-0.80) 02/12/19 15:03 Absolute Eos (auto) 0.19 10^3/uL (0.03-0.40) 02/12/19 15:03 Absolute Basos (auto) 0.02 10^3/uL (0.02-0.10) 02/12/19 15:03 Absolute Nucleated RBC 0.00 10^3/uL (0-0.01) 02/12/19 15:03 Immature Gran % 0.2 % (0.0-1.1) 02/12/19 15:03 Immature Gran # 0.01 10^3/uL (0.00-0.10) 02/12/19 15:03 PT 13.4 SEC (12.0-15.0) 02/12/19 15:03 INR 1.06 (0.83-1.16) 02/12/19 15:03 APTT 27.8 SEC (23.0-38.0) 02/12/19 15:03 Sodium 138 mEq/L (135-145) 02/12/19 15:03 Potassium 4.3 mEq/L (3.5-5.2) 02/12/19 15:03 Chloride 107 mEq/L (97-110) 02/12/19 15:03 Carbon Dioxide 25 mEq/l (22-31) 02/12/19 15:03 Anion Gap 6 mEq/L (6-14) 02/12/19 15:03 BUN 18 mg/dL (7-23) 02/12/19 15:03 Creatinine 0.9 mg/dL (0.7-1.3) 02/12/19 15:03 Estimated GFR > 60 03/16/19 15:03 Glucose 98 mg/dL (70-100) 02/12/19 15:03 Calcium 9.0 mg/dL (8.5-10.4) 02/12/19 15:03 Assessment & Plan Assessment: Bladder tumor Hx TIA 1 mo ago Plan: Admission for heparin bridging. Appreciate Hospitalist Dr. Helms's consultation and management of heparin. Will stop heparin 8 hrs before procedure on Wednesday 02/14 - procedure scheduled for 3pm that day. NPO at 6am on 02/14/2019. PT/OT consult OOB QID SCDs Any questions, please call Dr. Gupta
[2019-02-12] MEDS: LOSARTAN POTASSIUM 50 MG TAB PO SCH (21:41)
[2019-02-13 05:54] LABS: PLATELET COUNT 125 10^3/uL (150-400)
[2019-02-13] MEDS: CYANO/VITAMIN B12 1000 MCG TAB PO SCH (08:58)
[2019-02-13] MEDS: CHOLECALCIFEROL VIT D3 1,000 UNITS TAB PO SCH (08:58)
[2019-02-13] MEDS: valACYclovir 500 MG TAB PO SCH ×2 (08:59→20:17)
[2019-02-13] MEDS: ESCITALOPRAM OXALATE 10 MG TAB PO SCH (08:59)
[2019-02-13] MEDS: ATORVASTATIN CALCIUM 40 MG TAB PO SCH (08:59)
--- NOTE | 2019-02-13 09:27 | PDMN ---
Medical Necessity [facility] direct admit for heparin bridging prior to scheduled TURBT for recurrent bladder tumor in setting of recent TIA requiring inpt for tele monitoring, tight BP management and heparin bridging. Pt will require >2MN for management and tx of the above. Hx TIA, stroke, Afib, colon ca, COPD, bladder ca.
--- NOTE | 2019-02-13 10:13 | ASMTCMCOM ---
CM Note CM Note Notes: Reviewed chart. Pt scheduled for planned TURBT on Thursday02/14/19, admitted for heparin bridging for surgery. History includes colon cancer, TIA, CVA, paroxysmal Afib, bladder cancer, herpes, former smoker, depression, TAMARA, nocturnal hypoxemia, mild cognitive deficit, ETOH use. Pt is and lives with his in [place]. PT/OT evals pending. Discharge needs remain unclear at this time. CM to reassess following surgery. Pt may benefit from CAGE screening secondary to positive SBIRT and resources. Per notes, pt drinks "2 whiskeys per day." CM will continue to follow. Discharge Plan: To be determined Date Signed: 02/13/2019 10:11 AM Electronically Signed By:Carol Isidro RN
--- NOTE | 2019-02-13 10:34 | HOSPPROG ---
Hospitalist Progress Note Assessment/Plan: #h/o bladder cancer with recurrent mass: plan for surgery tomorrow #Heart murmur: not known to patient. Echo to eval for VHD prior to surgery #Bradycardia: asymptomatic. Noted on EKG 2013. Not on AV-danie blocking agents #h/o TIA/CVA, atrial fibrillation -requires bridge. Heparin gtt #TAMARA: CPAP #h/o diverticular bleeding: H/H stable #Cognitive impairment #Diet: NPO after MN Disp: inpatient admission for surgery in AM # Subjective: no CP or SOB. No dizziness, lightheaded Objective: Vital Signs Temp Pulse Resp BP Pulse Ox 36.4 C 45 L 16 124/65 H 95 02/13/19 08:30 02/13/19 08:30 02/13/19 08:30 02/13/19 08:30 02/13/19 08:30 Laboratory Results 02/13/19 05:40 02/13/19 05:40 02/12/19 02/13/19 02/14/19 05:59 05:59 05:59 Intake Total 450 Output Total 800 Balance -350 PT 13.4 SEC (12.0-15.0) 02/12/19 15:03 INR 1.06 (0.83-1.16) 02/12/19 15:03 - Time Spent With Patient Time Spent with Patient: greater than 35 minutes Time Spent with Patient: Greater than 35 minutes spent on this patients care, greater than 50% of time spent counseling, educating, and coordinating care regarding the above mentioned plan. - Physical Exam Constitutional: no apparent distress Eyes: PERRL Ears, Nose, Mouth, Throat: moist mucous membranes Cardiovascular: regular rate and rhythym, systolic murmur (2/6 RUSB) Respiratory: expiratory wheeze Gastrointestinal: normoactive bowel sounds Genitourinary: no bladder fullness Skin: warm Musculoskeletal: full muscle strength Neurologic: AAOx3, CN II-XII Intact Psychiatric: interacting appropriately ICD10 Worksheet Patient Problems: Problems Problem Status Onset Abdominal pain Acute Bladder cancer Acute Bronchitis Acute Chronic Disease Mgmt/Transitional Care Acute Dehydration Acute Fever and chills Acute GIB (gastrointestinal bleeding) Acute Generalized weakness Acute Intoxication Acute Pneumonia Acute Respiratory tract infection Acute UTI (urinary tract infection) Acute UTI (urinary tract infection) Acute
[2019-02-13] MEDS ORDERED: ALBUTEROL 60 PUFFS/8 GM MDI IH PRN (10:40)
[2019-02-13] MEDS: HEPARIN/DEXTROSE 500 ML IV SCH (13:38)
--- NOTE | 2019-02-13 16:07 | ECHO ---
[email or web address] [address] Main: [phone] Echocardiography Examination Transthoracic Name: MK MARIANO MR#: [id number] Study Date: 02/13/2019 Study Time: 02:24 PM Date of : 1935 Age: 83 year(s) Height: 172.7 cm (68 in.) Weight: 69.85 kg (154 lb.) BSA: 1.83 m2 Gender: Male Examination: Echo Contrast: Image Quality: Good Rhythm: Heart Rate: 47 bpm BP: 135 mmHg/70 mmHg Indication: Pre Op, Eval for Aortic Stenosis Procedure Staff Referring Physician: Skidder Runner: Kiran Pascual RDCS Reading Physician: Joel Delatorre MD Requesting Provider: Indication: Pre Op, Eval for Aortic Stenosis Measurements Chambers AV/MV Label Value Normal Value Label Value Normal Value EF lower range (%) 75 % AR PHT 0.49 s EF upper range (%) 80 % AR PHT 486 ms IVSd, 2D 1.1 cm (0.6cm - 1.1cm) AR Vmax 3.02 m/s LVDd, 2D 5.3 cm (4.2cm - 5.9cm) AV PGmax 13 mmHg LVDs, 2D 2.9 cm (2.1cm - 4cm) AV PGmean 7 mmHg LVEF, 2D 76 % (54% - 74%) AV Vmax 1.79 m/s LVOT PGmax 3 mmHg RO (continuity eq. 1.4 cm2 LVOT PGmean 1 mmHg Vmax) LVOT Vmax 0.82 m/s (0.7m/s - 1.1m/s) RO D (continuity eq. 1.7 cm2 LVOT Vmean 0.53 m/s VTI) LVOTd 2 cm (1.9cm - 2.1cm) MV A Vmax 0.4 m/s LVPWd, 2D 1.3 cm (0.6cm - 1cm) MV E' lateral 0.06 m/s LA Area, A2C 21.5 cm2 (0cm2 - 20cm2) MV E' mean 0.06 m/s LA Volume, A2C 70 ml (18ml - 58ml) MV E' septal 0.05 m/s LA Volume, A4C 88 ml (16ml - 34ml) MV E Vmax 0.57 m/s LA Volume, BP 86 ml (18ml - 58ml) MV E/A 1.42 LAESV index, MOD4 48.1 ml/m2 MV E/E' lateral 10.1 Additional Vessels MV E/E' mean 10.36 Label Value Normal Value MV E/E' septal 12.1 (0.45 - 1.25) AoRoot, MM 3.4 cm (2.2cm - 3.7cm) TV/PV Patient: MK MARIANO Study Date: 02/13/2019 Page 1 of 3 02:24 PM Label Value Normal Value RA Pressure 5 mmHg RVSP 43 mmHg TR Pmax 38 mmHg TR Vmax 3.07 m/s PV PGmax 3 mmHg PV Vmax, Caliper 0.86 m/s (0.6m/s - 0.9m/s) Conclusions Left Ventricle: Left ventricle is normal in size. EF range is estimated at 75 % - 80 %. There are no regional wall motion abnormalities. Aortic Valve: Mild aortic regurgitation is present. Aortic leaflets exhibit mild calcification. Tricuspid Valve: Mild tricuspid regurgitation. Right Ventricular systolic pressure is measured at 43 mmHg. Overall Conclusions: trivial aortic stenosis Findings Left Ventricle: Left ventricle is normal in size. The ejection fraction, measured by 2D, is 76 %. EF range is estimated at 75 % - 80 %. Left ventricle wall thickness is normal. There are no regional wall motion abnormalities. No LV hypertrophy. Right Ventricle: Right ventricular systolic function is normal. Left Atrium: The left atrium is moderately to severely dilated. Left Atrium Measurements LAESV index, MOD4 is 48.1 ml/m2. Right Atrium: The right atrium is normal in size. Mitral Valve: Mild mitral regurgitation. There is mild mitral calcification. Aortic Valve: Mild aortic regurgitation is present. Aortic leaflets exhibit mild calcification. Tricuspid Valve: Mild tricuspid regurgitation. Right Ventricular systolic pressure is measured at 43 mmHg. Pulmonary artery pressure is mildly increased. Pulmonic Valve: Pulmonic leaflets are normal in appearance and function. Aorta: The aortic root size in M-mode measures 3.4 cm. Aorta Measurements AoRoot, MM is 3.4 cm. Pericardium: Patient: MK MARIANO Study Date: 02/13/2019 Page 2 of 3 02:24 PM No pericardial effusion. Exam Details Procedure Ordered: Echo Procedure Status: Routine study Image Quality: Good Facility Location: Cardiac Echo 1 (No Signature Object) Patient: MK MARIANO Study Date: 02/13/2019 Page 3 of 3 02:24 PM [id number]
[2019-02-13] MEDS: LOSARTAN POTASSIUM 50 MG TAB PO SCH (20:17)
--- NOTE | 2019-02-13 23:28 | CPEKG ---
Test Reason : OPEN Blood Pressure : / mmHG Vent. Rate : 049 BPM Atrial Rate : 049 BPM P-R Int : 159 ms QRS Dur : 112 ms QT Int : 471 ms P-R-T Axes : 042 009 031 degrees QTc Int : 426 ms Sinus bradycardia Incomplete right bundle branch block Confirmed by Jeffrey Clifford ([id number]) on 02/13/2019 11:27:49 PM Referred By: Bobbi Gupta Confirmed By:Jeffrey Clifford
[2019-02-14 05:54] LABS: PLATELET COUNT 131 10^3/uL (150-400)
[2019-02-14 06:05] LABS: INR 1.05 (0.83-1.16); PROTIME(PATIENT) 13.3 SEC (12.0-15.0)
[2019-02-14] MEDS: NS 1,000 ML IV SCH (07:36)
[2019-02-14] MEDS: CHOLECALCIFEROL VIT D3 1,000 UNITS TAB PO SCH (08:55)
[2019-02-14] MEDS: ATORVASTATIN CALCIUM 40 MG TAB PO SCH (08:55)
[2019-02-14] MEDS: ESCITALOPRAM OXALATE 10 MG TAB PO SCH (08:55)
[2019-02-14] MEDS: CYANO/VITAMIN B12 1000 MCG TAB PO SCH (08:55)
[2019-02-14] MEDS: valACYclovir 500 MG TAB PO SCH ×2 (08:55→21:44)
[2019-02-14] MEDS ORDERED: mitoMYcin 40 MG in NS (SYRINGE) 20 ML TP ONE (11:15)
--- NOTE | 2019-02-14 14:54 | PDANEPAE ---
ANE Past Medical History - Cardiovascular History Hx Hypertension: Yes Hx Arrhythmias: Yes Hx Chest Pain: No Hx Coronary Artery / Peripheral Vascular Disease: No Hx CHF / Valvular Disease: No Hx Palpitations: No Cardiovascular History Comment: afib. pcp monitors - Pulmonary History Hx COPD: No Hx Asthma/Reactive Airway Disease: No Hx Recent Upper Respiratory Infection: Yes Hx Oxygen in Use at Home: Yes O2 in Use at Home (L/minute): 4 Hx Sleep Apnea: Yes Sleep Apnea Screening Result - Last Documented: Positive Pulmonary History Comment: yael positive uses cpap and o2- instructed pt to bring cpap to hospital - Neurologic History Hx Cerebrovascular Accident: Yes Hx Seizures: No Hx Dementia: Yes Neurologic History Comment: TIA in 2016. mild cognitive degeneration. followed by rbando garcia. peripheral neuropathy. balance issues - Endocrine History Hx Diabetes: No Hypothyroid: No Hyperthyroid: No Obesity: no - Renal History Hx Renal Disorders: Yes Renal History Comment: hx of bladder cancer. frequency. current "suscpious lesion" per - Liver History Hx Hepatic Disorders: No - Neurological & Psychiatric Hx Hx Neurological and Psychiatric Disorders: Yes Neurological / Psychiatric History Comment: depression. insomnia - Cancer History Hx Cancer: Yes Cancer History Comment: bladder ca. colon ca - Congenital Disorder History Hx Congenital Disorders: No - GI History Hx Gastrointestinal Disorders: Yes Gastrointestinal History Comment: colon ca with resection. chronic diarrhea - Other Health History Other Health History: wears glasses. bilateral hearing aides - Chronic Pain History Chronic Pain: No - Surgical History Prior Surgeries: colonoscopy with Hami 11/25/16. colon resection 1995. macular degeneration surgery 2007. dimple 2007. exploratory lap with ibis 07/08 ANE Review of Systems Review of Systems: - Exercise capacity Exercise capacity: >=4 METS ANE Patient History - Allergies Allergies/Adverse Reactions: amiodarone [Amiodarone] Allergy (Verified 02/02/19 15:33) experiences all side effects hydromorphone HCl [From Dilaudid] Allergy (Verified 02/02/19 15:33) makes him crazy per - Home Medications Home Medications: Aspirin EC [Aspirin EC 81 mg (*)] 81 mg PO DAILY 01/17/19 [Last Taken 02/06/19] Atorvastatin Calcium [Lipitor 40 mg (*)] 40 mg PO DAILY 01/17/19 [Last Taken 09:15] Escitalopram Oxalate [Lexapro] 10 mg PO DAILY 01/17/19 [Last Taken 02/12/19 09: 15] Apixaban [Eliquis] 2.5 mg PO BID 02/12/19 [Last Taken 02/12/19 09:00] C/E/Zn/Cu/OM3/DHA/EPA/LUT/ZEAX [Preservision Areds 2 Softgel] 1 each PO HS 02/12 [Last Taken 02/11/19] Cholecalciferol Vit D3 [Vitamin D3 (*)] 1,000 units PO DAILY 02/12/19 [Last Taken 02/12/19] Cyanocobalamin [Vitamin B12 (*)] 1,000 mcg PO DAILY 02/12/19 [Last Taken ] Losartan Potassium 100 mg PO HS 02/12/19 [Last Taken 02/11/19] Valacyclovir HCl [Valtrex] 1,000 mg PO BID PRN 02/12/19 [Last Taken 3 Weeks Ago ~01/22/19] - NPO status NPO Since - Liquids (Date): 02/14/19 NPO Since - Liquids (Time): 00:00 NPO Since - Solids (Date): 02/14/19 NPO Since - Solids (Time): 00:00 - Anes Hx Anes Hx: no prior problems - Smoking Hx Smoking Status: Former smoker - Alcohol Use Alcohol Use: Rarely - Family Anes Hx Family Anes Hx: neg - N/A Family Hx Anesthesia Complications: none ANE Labs/Vital Signs - Labs Result Diagrams: 02/14/19 05:45 02/14/19 05:45 - Vital Signs Blood Pressure: 145/71 Heart Rate: 47 Respiratory Rate: 16 O2 Sat (%): 91 Height: 172.72 cm Weight: 69.9 kg ANE Physical Exam - Airway Neck exam: decreased ROM Mallampati Score: Class 2 Mouth exam: normal dental/mouth exam - Pulmonary Pulmonary: no respiratory distress, no rales or rhonchi, clear to auscultation - Cardiovascular Cardiovascular: regular rate and rhythym, no murmur, rub, or gallop - ASA Status ASA Status: III ANE Anesthesia Plan Anesthesia Plan: general endotracheal anesthesia Total IV Anesthesia: No
[2019-02-14] MEDS ORDERED: ceFAZolin 2 GM/DEXTROSE 100 ML IV ONE (14:55)
[2019-02-14] MEDS ORDERED: LIDOCAINE 2% JELLY 20 ML (UROJECT) ONE (15:07)
[2019-02-14] MEDS ORDERED: IOPAMIDOL (ISOVUE-M 300) 15 ML VIAL ONE (15:07)
[2019-02-14] MEDS ORDERED: fentaNYL 100 MCG/2 ML INJ ONE ×2 (15:42→16:10)
[2019-02-14] MEDS ORDERED: PROPOFOL 200 MG/20 ML VIAL ONE (15:42)
[2019-02-14] MEDS ORDERED: ROCURONIUM 50 MG/5 ML VIAL ONE (15:43)
--- NOTE | 2019-02-14 15:43 | SOAPPROG ---
SOAP Progress Note Assessment/Plan: Assessment: Bladder tumor Recent TIA COPD Dementia Plan: TURBT w possible intravesical MMC. Bilateral RGP, possible L diagnostic ureteroscopy, posible left ureteral stent Will stay overnight at minimum, to make sure no excessive hematuria. He is at risk for postop hematuria due to need to be on heparin bridge. 02/14/19 15:40 Objective: Vital Signs Temp Pulse Resp BP Pulse Ox 36.7 C 47 L 16 145/71 H 91 L 02/14/19 11:48 02/14/19 14:54 02/14/19 14:54 02/14/19 14:54 02/14/19 14:54 Laboratory Results 02/14/19 05:45 02/14/19 05:45 02/13/19 02/14/19 02/15/19 05:59 05:59 05:59 Intake Total 450 950 Output Total 800 715 530 Balance -350 235 -530 PT 13.3 SEC (12.0-15.0) 02/14/19 05:45 INR 1.05 (0.83-1.16) 02/14/19 05:45 Gen NAD A&O CV regular Lungs Normal effort Abd soft Ext warm - Pending Discharge Pending Discharge Within 24 Hours: No Pending Discharge Within 48 Hours: Yes Pending Discharge Date: 02/16/19 Pending Discharge Time: 11:00 ICD10 Worksheet Patient Problems: Problems Problem Status Onset Abdominal pain Acute Bladder cancer Acute Bronchitis Acute Chronic Disease Mgmt/Transitional Care Acute Dehydration Acute Fever and chills Acute GIB (gastrointestinal bleeding) Acute Generalized weakness Acute Intoxication Acute Pneumonia Acute Respiratory tract infection Acute UTI (urinary tract infection) Acute UTI (urinary tract infection) Acute
[2019-02-14] MEDS ORDERED: ONDANSETRON 4 MG/2 ML VIAL ONE (15:46)
[2019-02-14] MEDS ORDERED: DEXAMETHASONE 4 MG/ML VIAL ONE (15:47)
[2019-02-14] MEDS ORDERED: KETOROLAC 30 MG/1 ML SDV ONE ×2 (15:47)
[2019-02-14] MEDS ORDERED: LIDOCAINE 2% 2 ML INJ ONE ×2 (15:49)
[2019-02-14] MEDS ORDERED: ePHEDrine SULFATE 25 MG/5 ML SYR ONE (16:22)
--- NOTE | 2019-02-14 16:29 | HOSPPROG ---
Hospitalist Progress Note Assessment/Plan: #h/o bladder cancer with recurrent mass: plan for surgery today -high-risk post-op bleeding #Heart murmur: not known to patient. Echo with NL EF, no significant VHD. Some pulm HTN #Bradycardia: asymptomatic. Noted on EKG 2013. Not on AV-danie blocking agents #h/o TIA/CVA, atrial fibrillation -requires bridge. Heparin gtt to restart when ok by Urology #TAMARA: CPAP #h/o diverticular bleeding: H/H stable #Cognitive impairment #Diet: ADAT Disp: inpatient admission to monitor for hematuria on heparin gtt # Subjective: No acute events overnight Objective: Vital Signs Temp Pulse Resp BP Pulse Ox 36.9 C 49 L 20 181/79 H 92 02/14/19 15:15 02/14/19 15:15 02/14/19 15:15 02/14/19 15:15 02/14/19 15:15 Laboratory Results 02/14/19 05:45 02/14/19 05:45 02/13/19 02/14/19 02/15/19 05:59 05:59 05:59 Intake Total 450 950 Output Total 800 715 530 Balance -350 235 -530 PT 13.3 SEC (12.0-15.0) 02/14/19 05:45 INR 1.05 (0.83-1.16) 02/14/19 05:45 - Time Spent With Patient Time Spent with Patient: greater than 35 minutes Time Spent with Patient: Greater than 35 minutes spent on this patients care, greater than 50% of time spent counseling, educating, and coordinating care regarding the above mentioned plan. - Physical Exam Constitutional: no apparent distress Eyes: PERRL Ears, Nose, Mouth, Throat: moist mucous membranes Cardiovascular: systolic murmur Respiratory: no respiratory distress Gastrointestinal: normoactive bowel sounds Genitourinary: no bladder fullness Skin: warm Musculoskeletal: full muscle strength Neurologic: AAOx3, CN II-XII Intact ICD10 Worksheet Patient Problems: Problems Problem Status Onset Abdominal pain Acute Bladder cancer Acute Bronchitis Acute Chronic Disease Mgmt/Transitional Care Acute Dehydration Acute Fever and chills Acute GIB (gastrointestinal bleeding) Acute Generalized weakness Acute Intoxication Acute Pneumonia Acute Respiratory tract infection Acute UTI (urinary tract infection) Acute UTI (urinary tract infection) Acute
[2019-02-14] MEDS ORDERED: SUGAMMADEX SODIUM 200 MG/2 ML VIAL IVP ONE (17:50)
[2019-02-14] MEDS ORDERED: OPIUM/BELLADONNA ALKALO SUPP PR ONE (17:54)
--- NOTE | 2019-02-14 18:24 | POSTOPPROG ---
Post Op Note Date of Operation: 02/14/19 Surgeon: Bobbi Gupta Anesthesiologist: Chan Anesthesia: GET(General Endotracheal) Pre-op Diagnosis: recurrent bladder tumor, left ureteral orifice abnl Post-op Diagnosis: same Indication: recurrent bladder tumor Procedure: cysto,LURS,bxLUreter, TURBT, left ureter cytology, BLE RGP, MMC Findings: left lateral wall tumor small, ?left ureteral tumor Inf/Abcess present in the surg proc area at time of surgery?: No EBL: Minimal Complications: none, patient tolerated procedure well Drains: Other (pinto) Specimen(s): bladder tumor, left ureteral tumor, left ureteral urine cytology
[2019-02-14] MEDS ORDERED: fentaNYL 100 MCG/2 ML INJ IVP PRN (18:25)
[2019-02-14] MEDS ORDERED: PHENYLEPHRINE HCL 100 MCG/ML SYR IVP PRN (18:25)
[2019-02-14] MEDS ORDERED: PROMETHAZINE HCL 25 MG/ML INJ IVP PRN (18:25)
[2019-02-14] MEDS ORDERED: NALOXONE HCL 0.4 MG/ML INJ IVP PRN (18:25)
[2019-02-14] MEDS ORDERED: HYDROCODONE/APAP 5/325 TAB PO PRN (18:25)
[2019-02-14] MEDS ORDERED: ACETAMINOPHEN 500 MG TAB PO PRN (18:25)
[2019-02-14] MEDS ORDERED: ONDANSETRON 4 MG/2 ML VIAL IVP PRN (18:25)
[2019-02-14] MEDS ORDERED: oxyCODONE IR 5 MG TAB PO PRN (18:25)
[2019-02-14] MEDS ORDERED: LR 500 ML IV PRN (18:25)
[2019-02-14] MEDS ORDERED: ENALAPRILAT DIHYDRATE 1.25 MG/ML VIAL IVP PRN (18:25)
--- NOTE | 2019-02-14 18:27 | POSTANESTH ---
Post Anesthetic Evaluation Cardiovascular Status: Similar to Pre-Op Cond Respiratory Status: Similar to Pre-op Cond. Level of Consciousness/Mental Status: Mildly Sleepy, Arousable Pain Control: Adequate, Prn Tx Ordered Nausea/Vomiting Control: Adequate, Prn Tx Ordered Complications Possibly Related to Anesthesia: None Noted
[2019-02-14] MEDS: PHENAZOPYRIDINE HCL 200 MG TAB PO SCH (20:06)
[2019-02-14] MEDS: LOSARTAN POTASSIUM 50 MG TAB PO SCH (21:45)
[2019-02-14] MEDS: CEPHALEXIN 500 MG CAP PO SCH (21:46)
--- NOTE | 2019-02-15 05:06 | GOP ---
[f rep st] OPERATIVE REPORT DATE OF OPERATION: 02/14/2019 SURGEON: Bobbi Gupta MD ANESTHESIA: General. ANESTHESIOLOGIST: Dr. Giles. PREOPERATIVE DIAGNOSIS: Recurrent bladder tumor and abnormal distal left ureter and ureteral orifice. POSTOPERATIVE DIAGNOSIS: Recurrent bladder tumor and abnormal distal left ureter and ureteral orifice. PROCEDURE PERFORMED: Cystoscopy, left diagnostic ureteroscopy with biopsy of left abnormal distal ureteral tissue and transverse resection of bladder tumor small, retrograde pyelograms bilateral, and intravesical mitomycin-C installation. FINDINGS: Left lateral tumor that was small. It was resected in its entirety. Also, the left distal ureter. Ureteral orifice had previously been surgically resected at his prior resection and was wide open and patulous, but the tissue surrounding it and the inside of the left distal ureteral orifice was abnormal and appeared to have malignant tissue. Hemostasis of resection sites and biopsy sites were verified visually and considered excellent at the end of the case. SPECIMENS: Bladder tumor as well as left ureteral tumor and left ureteral urine cytology. ESTIMATED BLOOD LOSS: Minimal. INDICATIONS: The patient presented to my office in October for a surveillance cystoscopy after history of bladder cancer. There was recurrent bladder tumor and recommended management resection of this recurrent tumor. He had a questionable TIA in December 2018 and due to this and his history of atrial fibrillation and stroke, he was admitted 2 days ago for heparin bridging as he is normally on Eliquis and presents today for his procedure. The rationale, risks, and benefits have been thoroughly discussed with the patient and his . Risks include bleeding, infection, pain, injury to the urethra or the bladder, the ureters, ureteral orifices, bladder perforation, need for subsequent procedures, risk of postoperative bleeding due to his need to be placed back on heparin bridging. The patient understood that these risks do not outweigh the benefits of diagnosing and resecting this tumor and he agreed to proceed. DESCRIPTION OF PROCEDURE: The patient was taken back to the cystoscopy suite, placed on the cystoscopy table in the supine position. General anesthesia induced without complication. Time-out performed. Core measures satisfied, including placement of a Raegan Hugger SCDs and administration of 2 g Ancef antibiotics. He was brought to the end of the table, placed in dorsal lithotomy position. All pressure points padded. Genitalia draped and prepped in a standard surgical fashion with Betadine. A rigid cystoscope easily cannulated the urethral meatus and was advanced atraumatically into the bladder. Lacy-cystoscopy was performed and abnormal appearing malignant tissue on the left lateral wall was identified. The left ureteral orifice was widely patent and was obviously surgically resected in the past. There was abnormal tissue that appeared to surround it, and there were no other lesions in the bladder that I could discern. The right ureteral orifice was narrow and it too may have been surgically altered, and there was scar tissue around it. I proceeded with performing bilateral retrogrades with a 5[place] open-ended catheter. The left distal ureter retrograde was dilated and irregular. The remaining mid and proximal ureter appeared normal as did the left upper collecting system. Contrast drained appropriately from the system, and there was no obstruction. I then did a right retrograde pyelogram, and there were no filling defects in the right system. The right ureter was delicate, and contrast showed that the right collecting system was sharp without any hydronephrosis, and the system also drained appropriately. There was no obstruction. I then proceeded to remove the scope and then perform a ureteroscopy on the distal ureter. On the CT scan, the ureter was thick and more thick than expected and also just initially looking at this patulous ureteral orifice, it appeared normal. So, I took the rigid ureteroscope into the left ureter without difficulty and the very distal aspect of the ureter did appear to have some abnormal tissue. At this point, the ureteral biopsy forceps was not available, and so I proceeded then to assemble the resectoscope , identified the abnormal tissue in the left lateral wall and resected this in its entirety. I used electrocautery liberally to maintain hemostasis throughout. I sent tumor that was superficial, separate from the deep tumor and I slowly resected all of this abnormal tissue. He did have several cellules , but there was no perforation of the bladder, and I do feel like I got muscle in the specimen. At this point, the ureteral biopsy forceps for the rigid ureteral scope had been identified and found, and then I removed the resectoscope and then placed the glidewire with cystoscopy into the left ureteral orifice and then removed that cystoscope and then advanced the semi- rigid ureteral scope in the left ureter. I took multiple biopsies of the abnormal tissue in the distal ureter and ureteral orifice. I also sent fluid for cytology. These biopsies were very tiny as usual with ureteral biopsy forceps, but I did take 5 or 6 biopsies and sent them to Pathology separately from the bladder tissue. Bleeding was minimal, and so I elected not to place a stent as this ureter was widely open and would be unlikely to obstruct. At this point, I verified there to be complete hemostasis of mucosa at the left bladder resection site and around the left ureteral orifice with the irrigation off. I removed the cystoscope, placed a Zee catheter, drained the bladder and then instilled 40 mg in 20 mL of mitomycin and then clamped that Zee catheter , and he will keep that in his bladder for an hour at which time it will be draining and the Zee will remain in place overnight. The patient did very well during the entire procedure and at this point, he was awoken from anesthesia and transferred to PACU in good condition. COMPLICATIONS: None. ESTIMATED BLOOD LOSS: Minimal. /[id number]/MODL MTDD
[2019-02-15] MEDS: CEPHALEXIN 500 MG CAP PO SCH ×3 (05:47→21:16)
[2019-02-15] MEDS: NS 1,000 ML IV SCH (05:49)
[2019-02-15] MEDS: ATORVASTATIN CALCIUM 40 MG TAB PO SCH (09:11)
[2019-02-15] MEDS: CHOLECALCIFEROL VIT D3 1,000 UNITS TAB PO SCH (09:11)
[2019-02-15] MEDS: CYANO/VITAMIN B12 1000 MCG TAB PO SCH (09:11)
[2019-02-15] MEDS: valACYclovir 500 MG TAB PO SCH ×2 (09:11→21:16)
[2019-02-15] MEDS: PHENAZOPYRIDINE HCL 200 MG TAB PO SCH ×2 (09:11→14:12)
[2019-02-15] MEDS: ESCITALOPRAM OXALATE 10 MG TAB PO SCH (09:11)
[2019-02-15 09:46] LABS: INR 1.21 (0.83-1.16); PROTIME(PATIENT) 14.8 SEC (12.0-15.0)
--- NOTE | 2019-02-15 15:18 | HOSPPROG ---
Hospitalist Progress Note Assessment/Plan: #h/o bladder cancer with recurrent mass: s/p surgery on 02/14 -high-risk post-op bleeding #Heart murmur: not known to patient. Echo with NL EF, no significant VHD. Some pulm HTN #Bradycardia: asymptomatic. Noted on EKG 2013. Not on AV-danie blocking agents #h/o TIA/CVA, atrial fibrillation -requires bridge. Heparin gtt to restart when ok by Urology, still with gross hematuria this AM #TAMARA: CPAP #h/o diverticular bleeding: H/H stable #Cognitive impairment #Diet: ADAT Disp: inpatient admission to monitor for hematuria on heparin gtt # Subjective: Patient with no complaints this AM Objective: Vital Signs Temp Pulse Resp BP Pulse Ox 36.4 C 50 L 18 114/55 L 93 02/15/19 11:26 02/15/19 11:26 02/15/19 11:26 02/15/19 11:26 02/15/19 11:26 Laboratory Results 02/15/19 09:11 02/14/19 05:45 02/14/19 02/15/19 02/16/19 05:59 05:59 05:59 Intake Total 950 1044 Output Total 715 980 250 Balance 235 64 -250 PT 14.8 SEC (12.0-15.0) 02/15/19 09:11 INR 1.21 (0.83-1.16) H 02/15/19 09:11 - Physical Exam Constitutional: no apparent distress Eyes: PERRL Ears, Nose, Mouth, Throat: moist mucous membranes Cardiovascular: regular rate and rhythym Respiratory: no respiratory distress Gastrointestinal: soft, non-tender abdomen Genitourinary: other (gross hematuria present ) Skin: warm Musculoskeletal: full muscle strength Neurologic: No AAOx3 Psychiatric: interacting appropriately ICD10 Worksheet Patient Problems: Problems Problem Status Onset Abdominal pain Acute Bladder cancer Acute Bronchitis Acute Chronic Disease Mgmt/Transitional Care Acute Dehydration Acute Fever and chills Acute GIB (gastrointestinal bleeding) Acute Generalized weakness Acute Intoxication Acute Pneumonia Acute Respiratory tract infection Acute UTI (urinary tract infection) Acute UTI (urinary tract infection) Acute
[2019-02-15] MEDS ORDERED: OPIUM/BELLADONNA ALKALO SUPP PR PRN (18:00)
--- NOTE | 2019-02-15 18:00 | SOAPPROG ---
SOAP Progress Note Assessment/Plan: Assessment: Bladder tumor s/p TURBT, ureteral bx Recent TIA COPD Dementia Manually irrigated pinto, urine just tinged w pyridium, no visible hematuria. Plan: OK to restart heparin gtt and management per hospitalist. Appreciate. Pinto out likely tomorrow as long as urine remains overall clear. Stop pyridium as discoloring urine and difficult to assess response to heparin. B&O rectal supp PRN bladder spasms. 02/14/19 15:40 02/15/19 17:57 Subjective: NAEON +ambulation OOB in chair Feeling well Occasional bladder spasms Objective: Vital Signs Temp Pulse Resp BP Pulse Ox 36.7 C 48 L 20 124/58 H 93 02/15/19 15:34 02/15/19 15:34 02/15/19 15:34 02/15/19 15:34 02/15/19 15:34 Laboratory Results 02/15/19 09:11 02/14/19 05:45 02/14/19 02/15/19 02/16/19 05:59 05:59 05:59 Intake Total 950 1044 Output Total 715 980 250 Balance 235 64 -250 PT 14.8 SEC (12.0-15.0) 02/15/19 09:11 INR 1.21 (0.83-1.16) H 02/15/19 09:11 Gen MAKENNA A*O CV regular Lungs Normal effort Abd soft Ext warm Manually irrigated pinto, urine just tinged w pyridium, no visible hematuria. NO clots found. - Pending Discharge Pending Discharge Within 48 Hours: Yes Pending Discharge Date: 02/17/19 Pending Discharge Time: 11:00 ICD10 Worksheet Patient Problems: Problems Problem Status Onset Abdominal pain Acute Bladder cancer Acute Bronchitis Acute Chronic Disease Mgmt/Transitional Care Acute Dehydration Acute Fever and chills Acute GIB (gastrointestinal bleeding) Acute Generalized weakness Acute Intoxication Acute Pneumonia Acute Respiratory tract infection Acute UTI (urinary tract infection) Acute UTI (urinary tract infection) Acute
[2019-02-15 20:20] LABS: INR 1.09 (0.83-1.16); PROTIME(PATIENT) 13.7 SEC (12.0-15.0)
[2019-02-15 20:45] LABS: PLATELET COUNT 132 10^3/uL (150-400)
[2019-02-15] MEDS: LOSARTAN POTASSIUM 50 MG TAB PO SCH (21:16)
[2019-02-15] MEDS: HEPARIN 10,000 UNIT/10 ML MDV (1,000 UNIT/ML) IVP PRN (23:26)
[2019-02-15] MEDS: HEPARIN/DEXTROSE 500 ML IV SCH (23:30)
[2019-02-16] MEDS: HYDROCODONE/APAP 5/325 TAB PO PRN ×3 (00:21→21:32)
[2019-02-16] MEDS: CEPHALEXIN 500 MG CAP PO SCH ×2 (05:24→14:40)
[2019-02-16] MEDS: valACYclovir 500 MG TAB PO SCH ×2 (09:59→21:32)
[2019-02-16] MEDS: CHOLECALCIFEROL VIT D3 1,000 UNITS TAB PO SCH (09:59)
[2019-02-16] MEDS: ATORVASTATIN CALCIUM 40 MG TAB PO SCH (09:59)
[2019-02-16] MEDS: CYANO/VITAMIN B12 1000 MCG TAB PO SCH (09:59)
[2019-02-16] MEDS: ESCITALOPRAM OXALATE 10 MG TAB PO SCH (10:18)
[2019-02-16] MEDS: LOPERAMIDE HCL 2 MG CAP PO PRN ×4 (11:58→21:33)
--- NOTE | 2019-02-16 14:09 | HOSPPROG ---
Hospitalist Progress Note Assessment/Plan: #h/o bladder cancer with recurrent mass: s/p surgery on 02/14 -high-risk post-op bleeding #h/o TIA/CVA, atrial fibrillation -requires bridge. Heparin gtt restarted by Urology, still with gross hematuria this AM, would hold on transitioning back to home Elaquis until bleeding is improved, patient was on 2.5 mg BID #TAMARA: CPAP #h/o diverticular bleeding: H/H stable #Heart murmur: not known to patient. Echo with NL EF, no significant VHD. Some pulm HTN #Bradycardia: asymptomatic. Noted on EKG 2013. Not on AV-danie blocking agents #Cognitive impairment #Diet: ADAT Subjective: Patient reports no complaints this AM Objective: Vital Signs Temp Pulse Resp BP Pulse Ox 36.4 C 47 L 20 140/61 H 94 02/16/19 11:32 02/16/19 11:32 02/16/19 11:32 02/16/19 11:32 02/16/19 11:32 Laboratory Results 02/15/19 19:45 02/14/19 05:45 02/15/19 02/16/19 02/17/19 05:59 05:59 05:59 Intake Total 1044 550 Output Total 980 1050 450 Balance 64 -500 -450 PT 13.7 SEC (12.0-15.0) 02/15/19 19:41 INR 1.09 (0.83-1.16) 02/15/19 19:41 - Physical Exam Constitutional: no apparent distress Eyes: PERRL Ears, Nose, Mouth, Throat: moist mucous membranes Cardiovascular: irregularly irregular Respiratory: no respiratory distress Gastrointestinal: soft, non-tender abdomen Genitourinary: pinto in urethra (gross hematuria present ) Skin: warm Neurologic: No AAOx3 Psychiatric: interacting appropriately ICD10 Worksheet Patient Problems: Problems Problem Status Onset Abdominal pain Acute Bladder cancer Acute Bronchitis Acute Chronic Disease Mgmt/Transitional Care Acute Dehydration Acute Fever and chills Acute GIB (gastrointestinal bleeding) Acute Generalized weakness Acute Intoxication Acute Pneumonia Acute Respiratory tract infection Acute UTI (urinary tract infection) Acute UTI (urinary tract infection) Acute
--- NOTE | 2019-02-16 17:28 | SOAPPROG ---
SOAP Progress Note Assessment/Plan: Assessment: Bladder tumor s/p TURBT, ureteral bx Recent TIA COPD Dementia Diarrhea x 1 today. Plan: Continue heparin for now. Urine more bloody, but thin. Continue pinto. Irrigate PRN obstruction. Sto abx. Probiotic 02/14/19 15:40 02/15/19 17:57 02/16/19 17:25 Subjective: Feeling tired. Diarrhea x 1. Objective: Vital Signs Temp Pulse Resp BP Pulse Ox 36.4 C 52 L 20 133/68 H 94 02/16/19 15:53 02/16/19 15:53 02/16/19 15:53 02/16/19 15:53 02/16/19 11:32 Laboratory Results 02/15/19 19:45 02/14/19 05:45 02/15/19 02/16/19 02/17/19 05:59 05:59 05:59 Intake Total 1044 550 200 Output Total 980 1050 850 Balance 64 -500 -650 PT 13.7 SEC (12.0-15.0) 02/15/19 19:41 INR 1.09 (0.83-1.16) 02/15/19 19:41 Gen NAD A&O CV regular Lungs Normal effort Abd soft Ext warm : urine dark red, thin. NO clots seen. Draining. ICD10 Worksheet Patient Problems: Problems Problem Status Onset Abdominal pain Acute Bladder cancer Acute Bronchitis Acute Chronic Disease Mgmt/Transitional Care Acute Dehydration Acute Fever and chills Acute GIB (gastrointestinal bleeding) Acute Generalized weakness Acute Intoxication Acute Pneumonia Acute Respiratory tract infection Acute UTI (urinary tract infection) Acute UTI (urinary tract infection) Acute
[2019-02-16] MEDS: HEPARIN 10,000 UNIT/10 ML MDV (1,000 UNIT/ML) IVP PRN (17:42)
[2019-02-16] MEDS: HEPARIN/DEXTROSE 500 ML IV SCH (19:30)
[2019-02-16] MEDS: LOSARTAN POTASSIUM 50 MG TAB PO SCH (21:32)
[2019-02-17] MEDS: ESCITALOPRAM OXALATE 10 MG TAB PO SCH (09:30)
[2019-02-17] MEDS: valACYclovir 500 MG TAB PO SCH ×2 (09:32→21:15)
[2019-02-17] MEDS: CYANO/VITAMIN B12 1000 MCG TAB PO SCH (09:33)
[2019-02-17] MEDS: CHOLECALCIFEROL VIT D3 1,000 UNITS TAB PO SCH (09:34)
[2019-02-17] MEDS: ATORVASTATIN CALCIUM 40 MG TAB PO SCH (09:34)
[2019-02-17] MEDS: HYDROCODONE/APAP 5/325 TAB PO PRN (14:45)
[2019-02-17] MEDS: HEPARIN 10,000 UNIT/10 ML MDV (1,000 UNIT/ML) IVP PRN (14:45)
--- NOTE | 2019-02-17 14:50 | HOSPPROG ---
Hospitalist Progress Note Assessment/Plan: #h/o bladder cancer with recurrent mass: s/p surgery on 02/14 -high-risk post-op bleeding #h/o TIA/CVA, atrial fibrillation -requires bridge. Heparin gtt restarted by Urology, still with gross hematuria this AM, would hold on transitioning back to home Elaquis until bleeding is improved, patient was on 2.5 mg BID #TAMARA: CPAP #h/o diverticular bleeding: H/H stable #Heart murmur: not known to patient. Echo with NL EF, no significant VHD. Some pulm HTN #Bradycardia: asymptomatic. Noted on EKG 2013. Not on AV-danie blocking agents #Cognitive impairment #Diarrhea - Chronic per patient - Started on Imodium yesterday, continue for now #Diet: ADAT Subjective: Patient reports no complaints this AM Objective: Vital Signs Temp Pulse Resp BP Pulse Ox 37.0 C 47 L 20 126/61 H 93 02/17/19 12:00 02/17/19 12:00 02/17/19 12:00 02/17/19 12:00 02/17/19 12:00 Laboratory Results 02/17/19 04:36 02/14/19 05:45 02/16/19 02/17/19 02/18/19 05:59 05:59 05:59 Intake Total 550 700 500 Output Total 1050 1800 900 Balance -500 -1100 -400 PT 13.7 SEC (12.0-15.0) 02/15/19 19:41 INR 1.09 (0.83-1.16) 02/15/19 19:41 - Physical Exam Constitutional: no apparent distress Eyes: PERRL Ears, Nose, Mouth, Throat: moist mucous membranes Cardiovascular: regular rate and rhythym Respiratory: no respiratory distress Gastrointestinal: soft, non-tender abdomen Genitourinary: pinto in urethra Musculoskeletal: full muscle strength Neurologic: No AAOx3 Psychiatric: interacting appropriately ICD10 Worksheet Patient Problems: Problems Problem Status Onset Abdominal pain Acute Bladder cancer Acute Bronchitis Acute Chronic Disease Mgmt/Transitional Care Acute Dehydration Acute Fever and chills Acute GIB (gastrointestinal bleeding) Acute Generalized weakness Acute Intoxication Acute Pneumonia Acute Respiratory tract infection Acute UTI (urinary tract infection) Acute UTI (urinary tract infection) Acute
--- NOTE | 2019-02-17 15:57 | ASMTCMCOM ---
CM Note CM Note Notes: Met with patient regarding discharge planning needs. Patient is open to [facility] and has used [facility] in the past. Referral sent to [facility] via [employer]. CM will continue to follow. Plan: [facility], RN/PT/OT Date Signed: 02/17/2019 03:56 PM Electronically Signed By:Florence Ritchie RN
--- NOTE | 2019-02-17 17:45 | SOAPPROG ---
SOAP Progress Note Assessment/Plan: Assessment: Bladder tumor s/p TURBT, ureteral bx Recent TIA COPD Dementia Plan: Continue heparin for now. Urine bloody, but thin. No clots irrigated. Zee removed. Monitor post void residual. Urine should clear up over time. Agree w hospitalist to hold Eliquis until urine becomes more clear. Appreciate Hospitalist. 02/14/19 15:40 02/15/19 17:57 02/16/19 17:25 02/17/19 17:42 Subjective: NAEON Ate breakfast No diarrhea since yesterday Objective: Vital Signs Temp Pulse Resp BP Pulse Ox 36.4 C 47 L 16 129/67 H 90 L 02/17/19 15:18 02/17/19 15:18 02/17/19 15:18 02/17/19 15:18 02/17/19 15:18 Laboratory Results 02/17/19 04:36 02/14/19 05:45 02/16/19 02/17/19 02/18/19 05:59 05:59 05:59 Intake Total 609 187 9372 Output Total 1050 1800 1200 Balance -500 -1100 100 PT 13.7 SEC (12.0-15.0) 02/15/19 19:41 INR 1.09 (0.83-1.16) 02/15/19 19:41 Gen NAD A*O CV regular Lungs normal effort Abd soft Ext warm urine red, but thin. Irrigated and light pink, no clots. ICD10 Worksheet Patient Problems: Problems Problem Status Onset Abdominal pain Acute Bladder cancer Acute Bronchitis Acute Chronic Disease Mgmt/Transitional Care Acute Dehydration Acute Fever and chills Acute GIB (gastrointestinal bleeding) Acute Generalized weakness Acute Intoxication Acute Pneumonia Acute Respiratory tract infection Acute UTI (urinary tract infection) Acute UTI (urinary tract infection) Acute
[2019-02-17] MEDS ORDERED: LIDOCAINE 2% JELLY 20 ML (UROJECT) UR ONE (18:30)
[2019-02-17] MEDS: LOSARTAN POTASSIUM 50 MG TAB PO SCH (21:15)
[2019-02-18] MEDS: HEPARIN 10,000 UNIT/10 ML MDV (1,000 UNIT/ML) IVP PRN (00:29)
[2019-02-18] MEDS: valACYclovir 500 MG TAB PO SCH ×2 (09:35→21:05)
[2019-02-18] MEDS: CYANO/VITAMIN B12 1000 MCG TAB PO SCH (09:36)
[2019-02-18] MEDS: ATORVASTATIN CALCIUM 40 MG TAB PO SCH (09:36)
[2019-02-18] MEDS: ESCITALOPRAM OXALATE 10 MG TAB PO SCH (09:36)
[2019-02-18] MEDS: CHOLECALCIFEROL VIT D3 1,000 UNITS TAB PO SCH (09:37)
[2019-02-18] MEDS: HEPARIN/DEXTROSE 500 ML IV SCH (10:57)
[2019-02-18] MEDS: LOPERAMIDE HCL 2 MG CAP PO PRN ×2 (12:14→12:35)
--- NOTE | 2019-02-18 15:52 | HOSPPROG ---
Hospitalist Progress Note Assessment/Plan: #h/o bladder cancer with recurrent mass: s/p surgery on 02/14 -high-risk post-op bleeding #h/o TIA/CVA, atrial fibrillation -requires bridge. Heparin gtt restarted by Urology, still with gross hematuria this AM, would hold on transitioning back to home Elaquis until bleeding is improved, patient was on 2.5 mg BID #TAMARA: CPAP #h/o diverticular bleeding: H/H stable #Heart murmur: not known to patient. Echo with NL EF, no significant VHD. Some pulm HTN #Bradycardia: asymptomatic. Noted on EKG 2013. Not on AV-danie blocking agents #Cognitive impairment #Diarrhea - Chronic per patient - Started on Imodium on 02/16, continue for now #Diet: ADAT Subjective: Pt with no complaints this AM Objective: Vital Signs Temp Pulse Resp BP Pulse Ox 36.4 C 51 L 14 101/53 L 90 L 02/18/19 11:41 02/18/19 11:41 02/18/19 11:41 02/18/19 11:41 02/18/19 11:41 Laboratory Results 02/17/19 04:36 02/14/19 05:45 02/17/19 02/18/19 02/19/19 05:59 05:59 05:59 Intake Total 700 1600 Output Total 1800 0 550 Balance -1100 -450 -550 PT 13.7 SEC (12.0-15.0) 02/15/19 19:41 INR 1.09 (0.83-1.16) 02/15/19 19:41 - Physical Exam Constitutional: no apparent distress Eyes: PERRL Ears, Nose, Mouth, Throat: moist mucous membranes Cardiovascular: regular rate and rhythym Respiratory: no respiratory distress Gastrointestinal: soft, non-tender abdomen Genitourinary: No pinto in urethra Skin: warm Musculoskeletal: full muscle strength Neurologic: No AAOx3 Psychiatric: interacting appropriately ICD10 Worksheet Patient Problems: Problems Problem Status Onset Abdominal pain Acute Bladder cancer Acute Bronchitis Acute Chronic Disease Mgmt/Transitional Care Acute Dehydration Acute Fever and chills Acute GIB (gastrointestinal bleeding) Acute Generalized weakness Acute Intoxication Acute Pneumonia Acute Respiratory tract infection Acute UTI (urinary tract infection) Acute UTI (urinary tract infection) Acute
--- NOTE | 2019-02-18 16:22 | ASMTCMCOM ---
CM Note CM Note Notes: Pt still having significant blood in his urine per Dr Johnston and is not ready for discharge yet. I updated Nia from [facility] [phone]. CM will monitor Pt's needs. PLAN: Home with Transitional Care Date Signed: 02/18/2019 04:21 PM Electronically Signed By:April Oro
[2019-02-18] MEDS ORDERED: LIDOCAINE 2% JELLY 20 ML (UROJECT) UR ONE (17:00)
[2019-02-18] MEDS: HYDROCODONE/APAP 5/325 TAB PO PRN (17:36)
[2019-02-18] MEDS ORDERED: oxyCODONE IR 5 MG TAB PO ONE (20:23)
[2019-02-18] MEDS: LOSARTAN POTASSIUM 50 MG TAB PO SCH (21:05)
[2019-02-19] MEDS: HEPARIN/DEXTROSE 500 ML IV SCH (06:40)
[2019-02-19] MEDS: ESCITALOPRAM OXALATE 10 MG TAB PO SCH (08:48)
[2019-02-19] MEDS: ATORVASTATIN CALCIUM 40 MG TAB PO SCH (08:48)
[2019-02-19] MEDS: CYANO/VITAMIN B12 1000 MCG TAB PO SCH (08:48)
[2019-02-19] MEDS: valACYclovir 500 MG TAB PO SCH ×2 (08:48→21:13)
[2019-02-19] MEDS: CHOLECALCIFEROL VIT D3 1,000 UNITS TAB PO SCH (08:48)
[2019-02-19] MEDS: NS 1,000 ML IV SCH (10:41)
[2019-02-19] MEDS ORDERED: LIDOCAINE 2% JELLY 5 ML TUBE TP PRN (12:11)
--- NOTE | 2019-02-19 12:57 | SOAPPROG ---
SOAP Progress Note Assessment/Plan: Assessment: Bladder tumor s/p TURBT, ureteral bx. Path benign, no malignancy. Discussed path w patient and . Recent TIA COPD Dementia Plan: Continue continuous bladder irrigation for now. Hope to wean over next 24h. Continue heparin for now. Encouraged ambulation/OOB to chair Agree w hospitalist to hold Eliquis until urine becomes more clear. Appreciate Hospitalist. Subjective: CBI started last night for dark red urine. No ambulation yesterday, but up in chair. Objective: Vital Signs Temp Pulse Resp BP Pulse Ox 36.6 C 49 L 18 125/67 H 90 L 02/19/19 12:00 02/19/19 12:00 02/19/19 12:00 02/19/19 12:00 02/19/19 12:00 Laboratory Results 02/19/19 04:36 02/14/19 05:45 02/18/19 02/19/19 02/20/19 05:59 05:59 05:59 Intake Total 1600 957 Output Total 2050 5260 Balance -450 -4303 PT 13.7 SEC (12.0-15.0) 02/15/19 19:41 INR 1.09 (0.83-1.16) 02/15/19 19:41 Gen NAD A&O CV regular Lungs Normal effort Abd soft Ext warm urine light pink in tubing, CBI light drip. Stat lock w pinto. ICD10 Worksheet Patient Problems: Problems Problem Status Onset Abdominal pain Acute Bladder cancer Acute Bronchitis Acute Chronic Disease Mgmt/Transitional Care Acute Dehydration Acute Fever and chills Acute GIB (gastrointestinal bleeding) Acute Generalized weakness Acute Intoxication Acute Pneumonia Acute Respiratory tract infection Acute UTI (urinary tract infection) Acute UTI (urinary tract infection) Acute
[2019-02-19] MEDS: HYDROCODONE/APAP 5/325 TAB PO PRN ×2 (16:46→21:14)
[2019-02-19] MEDS: LOSARTAN POTASSIUM 50 MG TAB PO SCH (21:14)
--- NOTE | 2019-02-20 09:01 | ASMTCMCOM ---
CM Note CM Note Notes: Attempted to meet with Pt but he was sleeping. OLGA [place] reports Pt Bladder Irrigations have stopped for now and continues on Heparin. CM to follow needs. PLAN: Home with Transitional Care Date Signed: 02/20/2019 09:01 AM Electronically Signed By:April Oro
[2019-02-20] MEDS: ESCITALOPRAM OXALATE 10 MG TAB PO SCH (10:36)
[2019-02-20] MEDS: HYDROCODONE/APAP 5/325 TAB PO PRN ×2 (10:37→16:48)
[2019-02-20] MEDS: valACYclovir 500 MG TAB PO SCH ×2 (10:37→21:12)
[2019-02-20] MEDS: ATORVASTATIN CALCIUM 40 MG TAB PO SCH (10:37)
[2019-02-20] MEDS: CYANO/VITAMIN B12 1000 MCG TAB PO SCH (10:37)
[2019-02-20] MEDS: CHOLECALCIFEROL VIT D3 1,000 UNITS TAB PO SCH (10:37)
[2019-02-20] MEDS: NS 1,000 ML IV SCH (14:48)
[2019-02-20] MEDS: HEPARIN/DEXTROSE 500 ML IV SCH (14:48)
--- NOTE | 2019-02-20 14:55 | HOSPPROG ---
Hospitalist Progress Note Assessment/Plan: #h/o bladder cancer with recurrent mass: s/p surgery on 02/14 -high-risk post-op bleeding #h/o TIA/CVA, atrial fibrillation -requires bridge. Heparin gtt restarted by Urology, restarted also on CBI yesterday afternoon, still with gross hematuria this AM, would hold on transitioning back to home Elaquis until bleeding is improved, patient was on 2.5 mg BID #TAMARA: CPAP #h/o diverticular bleeding: H/H stable #Heart murmur: not known to patient. Echo with NL EF, no significant VHD. Some pulm HTN #Bradycardia: asymptomatic. Noted on EKG 2013. Not on AV-danie blocking agents #Cognitive impairment #Diarrhea - Chronic per patient - Started on Imodium on 02/16, continue for now #Diet: ADAT Subjective: Patient with no complaints this AM Objective: Vital Signs Temp Pulse Resp BP Pulse Ox 36.3 C 50 L 18 130/60 H 91 L 02/20/19 07:58 02/20/19 12:00 02/20/19 12:00 02/20/19 12:00 02/20/19 12:00 Laboratory Results 02/19/19 04:36 02/14/19 05:45 02/19/19 02/20/19 02/21/19 05:59 05:59 05:59 Intake Total 957 3050 Output Total 5260 4150 Balance -4303 -1100 PT 13.7 SEC (12.0-15.0) 02/15/19 19:41 INR 1.09 (0.83-1.16) 02/15/19 19:41 - Physical Exam Constitutional: no apparent distress Eyes: PERRL Ears, Nose, Mouth, Throat: moist mucous membranes Cardiovascular: regular rate and rhythym Respiratory: no respiratory distress Gastrointestinal: soft, non-tender abdomen Genitourinary: pinto in urethra Skin: warm Neurologic: AAOx3 Psychiatric: interacting appropriately ICD10 Worksheet Patient Problems: Problems Problem Status Onset Abdominal pain Acute Bladder cancer Acute Bronchitis Acute Chronic Disease Mgmt/Transitional Care Acute Dehydration Acute Fever and chills Acute GIB (gastrointestinal bleeding) Acute Generalized weakness Acute Intoxication Acute Pneumonia Acute Respiratory tract infection Acute UTI (urinary tract infection) Acute UTI (urinary tract infection) Acute
--- NOTE | 2019-02-20 16:39 | SOAPPROG ---
SOAP Progress Note Assessment/Plan: Assessment: Gross hematuria, unable to wean CBI past few days. Bladder tumor s/p TURBT, ureteral bx 1 weeks ago. Path benign, no malignancy. Discussed path w patient and my desire to cauterize any tissue leading to this hematuria. Recent TIA COPD Dementia Plan: CBC/CMP Continue continuous bladder irrigation for now. Plan for cysto, cauterization of bladder tissue tomorrow around 1pm if urine doesn't clear by then. Continue heparin, no need to hold for this procedure. Encouraged ambulation/OOB to chair. Encouraged PO fluid intake. Agree w hospitalist to hold Eliquis at this point, continue heparin gtt. Appreciate Hospitalist. 02/20/19 16:35 02/20/19 16:39 Subjective: Urine continues to be red when holding CBI and light red on CBI. Patient ambulating, has occasional discomfort from pinto. Otherwise feeling well. Objective: Vital Signs Temp Pulse Resp BP Pulse Ox 36.3 C 58 L 18 135/70 H 94 02/20/19 16:00 02/20/19 16:00 02/20/19 16:00 02/20/19 16:00 02/20/19 16:00 Laboratory Results 02/19/19 04:36 02/14/19 05:45 02/19/19 02/20/19 02/21/19 05:59 05:59 05:59 Intake Total 957 3050 Output Total 5260 4150 Balance -4303 -1100 PT 13.7 SEC (12.0-15.0) 02/15/19 19:41 INR 1.09 (0.83-1.16) 02/15/19 19:41 Gen NAD A&O CV regular Lungs Normal effort Abd soft Ext warm pinto in place, urine red/opaque ICD10 Worksheet Patient Problems: Problems Problem Status Onset Abdominal pain Acute Bladder cancer Acute Bronchitis Acute Chronic Disease Mgmt/Transitional Care Acute Dehydration Acute Fever and chills Acute GIB (gastrointestinal bleeding) Acute Generalized weakness Acute Intoxication Acute Pneumonia Acute Respiratory tract infection Acute UTI (urinary tract infection) Acute UTI (urinary tract infection) Acute
[2019-02-20] MEDS: LOPERAMIDE HCL 2 MG CAP PO PRN (16:48)
[2019-02-20] MEDS: LOSARTAN POTASSIUM 50 MG TAB PO SCH (21:12)
[2019-02-21] MEDS ORDERED: NS 1,000 ML IV SCH (00:01)
[2019-02-21] MEDS: HYDROCODONE/APAP 5/325 TAB PO PRN ×4 (00:19→21:33)
[2019-02-21] MEDS: HEPARIN/DEXTROSE 500 ML IV SCH (05:42)
[2019-02-21] MEDS: valACYclovir 500 MG TAB PO SCH ×2 (07:57→21:30)
[2019-02-21] MEDS: CYANO/VITAMIN B12 1000 MCG TAB PO SCH (07:57)
[2019-02-21] MEDS: ESCITALOPRAM OXALATE 10 MG TAB PO SCH (07:57)
[2019-02-21] MEDS: ATORVASTATIN CALCIUM 40 MG TAB PO SCH (07:57)
[2019-02-21] MEDS: CHOLECALCIFEROL VIT D3 1,000 UNITS TAB PO SCH (07:58)
[2019-02-21] MEDS: LOPERAMIDE HCL 2 MG CAP PO PRN (08:03)
[2019-02-21] MEDS ORDERED: LIDOCAINE 2% JELLY 20 ML (UROJECT) ONE ×2 (09:52→14:49)
[2019-02-21] MEDS ORDERED: hydrALAZINE 20 MG/ML VIAL IVP PRN (12:43)
[2019-02-21] MEDS ORDERED: OPIUM/BELLADONNA ALKALO SUPP PR ONE (13:07)
[2019-02-21] MEDS ORDERED: LR 1,000 ML IV ONE (13:12)
--- NOTE | 2019-02-21 13:17 | PDANEPAE ---
ANE History of Present Illness TURBT ANE Past Medical History - Cardiovascular History Hx Hypertension: Yes Hx Arrhythmias: Yes Hx Chest Pain: No Hx Coronary Artery / Peripheral Vascular Disease: No Hx CHF / Valvular Disease: No Hx Palpitations: No Cardiovascular History Comment: afib. pcp monitors - Pulmonary History Hx COPD: No Hx Asthma/Reactive Airway Disease: No Hx Recent Upper Respiratory Infection: Yes Hx Oxygen in Use at Home: Yes O2 in Use at Home (L/minute): 4 Hx Sleep Apnea: Yes Sleep Apnea Screening Result - Last Documented: Positive Pulmonary History Comment: yael positive uses cpap and o2- instructed pt to bring cpap to hospital - Neurologic History Hx Cerebrovascular Accident: Yes Hx Seizures: No Hx Dementia: Yes Neurologic History Comment: TIA in 2016. mild cognitive degeneration. followed by brando garcia. peripheral neuropathy. balance issues - Endocrine History Hx Diabetes: No Hypothyroid: No Hyperthyroid: No Obesity: no - Renal History Hx Renal Disorders: Yes Renal History Comment: hx of bladder cancer. frequency. current "suscpious lesion" per - Liver History Hx Hepatic Disorders: No - Neurological & Psychiatric Hx Hx Neurological and Psychiatric Disorders: Yes Neurological / Psychiatric History Comment: depression. insomnia - Cancer History Hx Cancer: Yes Cancer History Comment: bladder ca. colon ca - Congenital Disorder History Hx Congenital Disorders: No - GI History Hx Gastrointestinal Disorders: Yes Gastrointestinal History Comment: colon ca with resection. chronic diarrhea - Other Health History Other Health History: wears glasses. bilateral hearing aides - Chronic Pain History Chronic Pain: No - Surgical History Prior Surgeries: colonoscopy with Haim 11/25/16. colon resection 1995. macular degeneration surgery 2007. dimple 2007. exploratory lap with ibis 07/08 ANE Review of Systems Review of systems is: negative Review of Systems: - Exercise capacity Exercise capacity: limited by disability ANE Patient History - Allergies Allergies/Adverse Reactions: amiodarone [Amiodarone] Allergy (Verified 02/02/19 15:33) experiences all side effects hydromorphone HCl [From Dilaudid] Allergy (Verified 02/02/19 15:33) makes him crazy per - Home Medications Home medications: home medication list seen and reviewed Home Medications: Aspirin EC [Aspirin EC 81 mg (*)] 81 mg PO DAILY 01/17/19 [Last Taken 02/06/19] Atorvastatin Calcium [Lipitor 40 mg (*)] 40 mg PO DAILY 01/17/19 [Last Taken 09:15] Escitalopram Oxalate [Lexapro] 10 mg PO DAILY 01/17/19 [Last Taken 02/12/19 09: 15] Apixaban [Eliquis] 2.5 mg PO BID 02/12/19 [Last Taken 02/12/19 09:00] C/E/Zn/Cu/OM3/DHA/EPA/LUT/ZEAX [Preservision Areds 2 Softgel] 1 each PO HS 02/12 [Last Taken 02/11/19] Cholecalciferol Vit D3 [Vitamin D3 (*)] 1,000 units PO DAILY 02/12/19 [Last Taken 02/12/19] Cyanocobalamin [Vitamin B12 (*)] 1,000 mcg PO DAILY 02/12/19 [Last Taken ] Losartan Potassium 100 mg PO HS 02/12/19 [Last Taken 02/11/19] Valacyclovir HCl [Valtrex] 1,000 mg PO BID PRN 02/12/19 [Last Taken 3 Weeks Ago ~01/22/19] - NPO status NPO Status: no food or drink >8 hours NPO Since - Liquids (Date): 02/14/19 NPO Since - Liquids (Time): 00:00 NPO Since - Solids (Date): 02/14/19 NPO Since - Solids (Time): 00:00 - Anes Hx Anes Hx: no prior problems - Smoking Hx Smoking Status: Former smoker - Alcohol Use Alcohol Use: Rarely - Family Anes Hx Family Anes Hx: none Family Hx Anesthesia Complications: none ANE Labs/Vital Signs - Labs Result Diagrams: 02/21/19 04:15 02/21/19 04:15 - Vital Signs Vital Signs: reviewed preoperatively; see RN documention for details Blood Pressure: 136/62 Heart Rate: 44 Respiratory Rate: 11 O2 Sat (%): 93 Height: 172.72 cm Weight: 69.9 kg ANE Physical Exam - Airway Neck exam: FROM Mallampati Score: Class 2 Mouth exam: poor dentition - Pulmonary Pulmonary: no respiratory distress - Cardiovascular Cardiovascular: irregularly irregular - ASA Status ASA Status: III ANE Anesthesia Plan Anesthesia Plan: GA w LMA
[2019-02-21] MEDS ORDERED: MIDAZOLAM 2 MG/2 ML VIAL IVP ONE (13:26)
[2019-02-21] MEDS ORDERED: ONDANSETRON 4 MG/2 ML VIAL ONE (13:35)
[2019-02-21] MEDS ORDERED: PROPOFOL 200 MG/20 ML VIAL ONE ×2 (13:35→14:21)
[2019-02-21] MEDS ORDERED: DEXAMETHASONE 4 MG/ML VIAL ONE (13:35)
[2019-02-21] MEDS ORDERED: fentaNYL 100 MCG/2 ML INJ ONE ×2 (13:35→15:27)
[2019-02-21] MEDS ORDERED: LIDOCAINE 2% 100 MG/5 ML SYR ONE (13:35)
--- NOTE | 2019-02-21 13:38 | PDHPUP ---
History & Physical Update H&P update statement: This history and physical update is based on an assessment of the patient which was completed after admission or registration (within 24 hours), but prior to the surgery/procedure. H&P update: H&P reviewed & patient examined, changes noted (S/P TURBT on heparin bridging with continued hematuria. Recommend cysto and fulguration of hemorragic bladder mucosa. )
--- NOTE | 2019-02-21 13:40 | SOAPPROG ---
SOAP Progress Note Assessment/Plan: Assessment: Gross hematuria, unable to wean CBI past few days. Bladder tumor s/p TURBT, ureteral bx 1 weeks ago. Path benign, no malignancy. Discussed path w patient and my desire to cauterize any tissue leading to this hematuria. Recent TIA COPD Dementia Plan: To the OR for cysto, fulguration of bleeding mucosa. Rationale, risks, benefits reviewed, patient agrees to proceed. 02/20/19 16:35 02/20/19 16:39 02/21/19 13:39 Subjective: Hematuria persists. CBI has been running. Objective: Vital Signs Temp Pulse Resp BP Pulse Ox 36.5 C 44 L 11 L 136/62 H 93 02/21/19 13:13 02/21/19 13:27 02/21/19 13:27 02/21/19 13:27 02/21/19 13:27 Laboratory Results 02/21/19 04:15 02/21/19 04:15 02/20/19 02/21/19 02/22/19 05:59 05:59 05:59 Intake Total 3050 806 Output Total 4150 Balance -1100 806 PT 13.7 SEC (12.0-15.0) 02/15/19 19:41 INR 1.09 (0.83-1.16) 02/15/19 19:41 Gen NAD A&O CV regular Lungs Normal effort Abd soft Ext warm wtih CBI off a few minutes, urine turns bright red. ICD10 Worksheet Patient Problems: Problems Problem Status Onset Abdominal pain Acute Bladder cancer Acute Bronchitis Acute Chronic Disease Mgmt/Transitional Care Acute Dehydration Acute Fever and chills Acute GIB (gastrointestinal bleeding) Acute Generalized weakness Acute Intoxication Acute Pneumonia Acute Respiratory tract infection Acute UTI (urinary tract infection) Acute UTI (urinary tract infection) Acute
[2019-02-21] MEDS ORDERED: PROMETHAZINE HCL 25 MG/ML INJ IVP PRN ×2 (13:41→15:26)
[2019-02-21] MEDS ORDERED: fentaNYL 100 MCG/2 ML INJ IVP PRN (13:41)
[2019-02-21] MEDS ORDERED: DEXAMETHASONE 4 MG/ML VIAL IVP PRN ×2 (13:41→15:26)
[2019-02-21] MEDS ORDERED: ACETAMINOPHEN 500 MG TAB PO PRN (13:41)
[2019-02-21] MEDS ORDERED: NALOXONE HCL 0.4 MG/ML INJ IVP PRN ×2 (13:41→15:26)
[2019-02-21] MEDS ORDERED: ceFAZolin 2 GM/DEXTROSE 100 ML IV ONE (13:41)
[2019-02-21] MEDS ORDERED: MEPERIDINE 25 MG/0.5 ML AMP IVP PRN ×2 (13:41→15:26)
[2019-02-21] MEDS ORDERED: PHENYLEPHRINE HCL 100 MCG/ML SYR IVP PRN (13:41)
[2019-02-21] MEDS ORDERED: LABETALOL HCL 5 MG/ML 20 ML MDV IVP PRN ×2 (13:41→15:26)
[2019-02-21] MEDS ORDERED: oxyCODONE IR 5 MG TAB PO PRN ×2 (13:41→15:26)
[2019-02-21] MEDS ORDERED: CEFAZOLIN 2 GM/DEXTROSE/100 ML BAG IV ONE (13:42)
--- NOTE | 2019-02-21 13:42 | POSTANESTH ---
Post Anesthetic Evaluation Cardiovascular Status: Similar to Pre-Op Cond Respiratory Status: Similar to Pre-op Cond. Level of Consciousness/Mental Status: Can Participate in Eval, Moderately Sleepy Pain Control: Adequate, Prn Tx Ordered Nausea/Vomiting Control: Adequate, Prn Tx Ordered Complications Possibly Related to Anesthesia: None Noted
[2019-02-21] MEDS ORDERED: PHENYLEPHRINE HCL 100 MCG/ML SYR ONE (14:46)
--- NOTE | 2019-02-21 15:00 | SOAPPROG ---
SOAP Progress Note Assessment/Plan: The patient is a 83-year-old male with PMH bladder cancer who was admitted for hematuria following a bladder mass biopsy. This patient is new to me. Reviewed patient's chart/records for this visit. ASSESSMENT/PLAN: Hematuria, s/p surgical cauterization Suspected recurrent bladder cancer Bladder pain, 2/2 above -discussed w/ Urologist Dr. Gupta - hold heparin 8hrs, resume tonight. -Continue to hold Eliquis. -No DC until bleeding stops. -Check AM labs. -prn analgesics. Add IV morphine. TAMARA H/o diverticular bleeding Heart murmur Pulm HTN Asymptomatic bradycardia, chronic Mild cognitive impairment Chronic diarrhea -Imodium prn. VTE prophylaxis: held for bleeding. Code Status: Full code. Status: inpt for > 2 midnight stay. Disposition: [facility] with discharge later this week. ____ SUBJECTIVE: Today the patient was seen following surgery. He complains of pain in his bladder. OBJECTIVE: Physical Exam: General: The patient is an elderly male who is alert and in no acute distress. HEENT: normocephalic, extraocular movements intact, conjunctivae clear. Mucous membranes dry. Neck: trachea midline, no visible masses. Resp: unlabored Abd: soft and nondistended. Musculoskeletal: Normal muscle tone/bulk. Neuro: cranial nerves II XII grossly intact. Intact gross motor and sensory function. Psych: Appropriate mood and appropriate affect. Skin: + pallor. No petechiae. Heme/lymph: No peripheral edema at bilateral ankles. : +Zee catheter present draining light pink urine. Labs/Imaging/Other Tests: ECHO: RVSP 43mmHg. Mild MR/TR/. EF 75-80%. LA mod-severely dilated. EKG - personally interpreted-sinus bradycardia, incomplete RBBB. 35 total minutes of [id number] time with the patient and floor time with other physicians, RNs was spent, >50% of which was spent counseling and coordinating patient care. Objective: Vital Signs Temp Pulse Resp BP Pulse Ox 36.5 C 44 L 11 L 136/62 H 93 02/21/19 13:13 02/21/19 13:27 02/21/19 13:27 02/21/19 13:27 02/21/19 13:27 Laboratory Results 02/21/19 04:15 02/21/19 04:15 02/20/19 02/21/19 02/22/19 05:59 05:59 05:59 Intake Total 3050 806 Output Total 4150 Balance -1100 806 PT 13.7 SEC (12.0-15.0) 02/15/19 19:41 INR 1.09 (0.83-1.16) 02/15/19 19:41 ICD10 Worksheet Patient Problems: Problems Problem Status Onset Abdominal pain Acute Bladder cancer Acute Bronchitis Acute Chronic Disease Mgmt/Transitional Care Acute Dehydration Acute Fever and chills Acute GIB (gastrointestinal bleeding) Acute Generalized weakness Acute Intoxication Acute Pneumonia Acute Respiratory tract infection Acute UTI (urinary tract infection) Acute UTI (urinary tract infection) Acute
--- NOTE | 2019-02-21 15:09 | POSTOPPROG ---
Post Op Note Date of Operation: 02/21/19 Surgeon: Bobbi Gupta Anesthesiologist: Sam Sevilla Pre-op Diagnosis: hematuria Post-op Diagnosis: same Indication: hematuria, s/p TURBT on heparin bridge Procedure: cysto, fulguration bleeding mucosa Findings: active bleeding mucosa in area of TURBT resection Inf/Abcess present in the surg proc area at time of surgery?: No EBL: Minimal Complications: None, patient tolerated procedure well Drains: Other (pinto)
[2019-02-21] MEDS: fentaNYL 100 MCG/2 ML INJ IVP PRN ×2 (15:33→15:47)
[2019-02-21] MEDS: LOSARTAN POTASSIUM 50 MG TAB PO SCH (21:31)
[2019-02-21] MEDS: HEPARIN 10,000 UNIT/10 ML MDV (1,000 UNIT/ML) IVP PRN (23:34)
[2019-02-22] MEDS: HYDROCODONE/APAP 5/325 TAB PO PRN ×4 (05:36→22:28)
[2019-02-22 05:45] LABS: PLATELET COUNT 121 10^3/uL (150-400)
[2019-02-22] MEDS: ATORVASTATIN CALCIUM 40 MG TAB PO SCH (08:43)
[2019-02-22] MEDS: CHOLECALCIFEROL VIT D3 1,000 UNITS TAB PO SCH (08:43)
[2019-02-22] MEDS: valACYclovir 500 MG TAB PO SCH ×2 (08:43→21:45)
[2019-02-22] MEDS: CYANO/VITAMIN B12 1000 MCG TAB PO SCH (08:43)
[2019-02-22] MEDS: ESCITALOPRAM OXALATE 10 MG TAB PO SCH (08:43)
--- NOTE | 2019-02-22 09:22 | GOP ---
[f rep st] OPERATIVE REPORT DATE OF OPERATION: 02/21/2019 SURGEON: Bobbi Gupta MD ANESTHESIOLOGIST: Sam Sevilla MD. PREOPERATIVE DIAGNOSIS: Hematuria. POSTOPERATIVE DIAGNOSIS: Hematuria. PROCEDURE PERFORMED: Cystoscopy and fulguration of bleeding mucosa. FINDINGS: Active bleeding of mucosa in the area of prior left lateral bladder tumor resection. SPECIMENS: None. ESTIMATED BLOOD LOSS: Minimal. INDICATIONS: The patient has a history of recent TIA, and his neurologist had recommended a heparin bridge prior and after his TURBT for bladder mass. He underwent that TURBT 1 week ago and was started soon after back on his heparin. He did not switch to his Eliquis yet and on heparin which was at a therapeutic rate. He continued to have gross hematuria that was darker and more significant despite being on a continuous bladder irrigation for the last 3 days. I was concerned there was some active bleeding, and his hemoglobin over the last 4 days did go from 14 down to 11; so I felt going back and doing a look in the bladder and fulguration of any bleeding mucosa is warranted. I discussed with the patient and his my rationale for doing this, the risks and the benefits. The risks are we may need to hold heparin after the fulguration for a period of time to assess the hemostatic ability of the bladder and also the need for anesthesia. The patient and his understood these risks and understood the benefits and agreed to proceed. DESCRIPTION OF PROCEDURE: He was taken back to the cystoscopy suite, placed on the cystoscopy table in supine position. General anesthesia induced without complication. Time-out was performed and core measures satisfied, including placement of a Raegan Hugger, SCDs and administration of 2 g Ancef antibiotics. I did not hold his heparin for this case, and he was on a therapeutic level of heparin. He was placed in a dorsal lithotomy position. All pressure points padded. Genitalia prepped and draped in a standard surgical fashion with Betadine. A rigid visual obturator was easily advanced into the urethral meatus and into the bladder. The cautery loop was assembled. Lacy cystoscopy performed, and there was an area of active bleeding on the left lateral wall where there was prior resection. There was also clot attached to the prior resection as well. I was able to find the active bleeder, cauterize this and gain complete hemostasis. I was very patient during the procedure and made sure that hemostasis would be maintained; and after half an hour, I did not see any more active bleeding and I was confident I did cauterize this bleeding mucosal area. There were no other lesions in the bladder of concern. And I did do some additional cauterization around some erythematous areas of the prior resection, but these areas were not actively bleeding. At this point, I felt hemostasis was now complete. I emptied his bladder several times and re- examined the area, and it still maintained hemostatic. I then removed the resectoscope with the loop and then placed lidocaine jelly and then placed a 24 three-way catheter. I did not initiate continuous bladder irrigation at this point, as his urine was very clear. I did though now stop the heparin drip, and we would hold the heparin drip for 8 hours at which point I would restart it and verify that hemostasis was maintained. He did well during the entire procedure. A belladonna and opium was placed prior to waking him up, and he was woken and transferred to PACU in good condition. I will communicate with the hospitalist my plan for the heparin and hold CBI at this point unless needed. COMPLICATIONS: None. DRAIN: A Zee catheter. /[id number]/MODL MTDD
[2019-02-22] MEDS: HEPARIN 10,000 UNIT/10 ML MDV (1,000 UNIT/ML) IVP PRN (13:30)
--- NOTE | 2019-02-22 13:54 | ASMTCMCOM ---
CM Note CM Note Notes: 02/22/2019 Case Management Note Discussed pt during rounds this morning. Pt had TURBT 1 week ago. Yesterday pt had cystoscopy and fulguration of bleeding mucosa in area of prior bladder tumor resection. D/C date unclear at this time. Faxed updates to [facility]. Case Management d/c poc: home with [facility] RN PT OT Case Management to follow. Date Signed: 02/22/2019 01:53 PM Electronically Signed By:Isabel Roberts RN
[2019-02-22] MEDS: LOPERAMIDE HCL 2 MG CAP PO PRN ×2 (18:11→18:44)
--- NOTE | 2019-02-22 18:35 | HOSPPROG ---
Hospitalist Progress Note Assessment/Plan: The patient is a 83-year-old male with PMH bladder cancer who was admitted for hematuria following a bladder mass biopsy. ASSESSMENT/PLAN: Hematuria, s/p surgical cauterization - resolved Suspected recurrent bladder cancer Bladder pain, 2/2 above Anemia, acute blood loss and chronic - stable -On heparin gtt. -Switch back to Eliquis from heparin if bleeding does not recur. -prn analgesics. Change [place] to q4h since pt starts to get pain again after 5hrs. TAMARA H/o diverticular bleeding Heart murmur Pulm HTN Asymptomatic bradycardia, chronic Mild cognitive impairment Chronic diarrhea -Imodium prn. VTE prophylaxis: held for bleeding. Code Status: Full code. Status: inpt for > 2 midnight stay. Disposition: [facility] with discharge in the next 1-2 days per Urology, if bleeding has stopped. ____ SUBJECTIVE: Today the patient was feeling better. +a couple episodes of diarrhea. No hematuria. OBJECTIVE: Physical Exam: General: The patient is an elderly male who is alert and in no acute distress. HEENT: normocephalic, extraocular movements intact, conjunctivae clear. Mucous membranes dry. Neck: trachea midline, no visible masses. Resp: unlabored Abd: soft and nondistended. Musculoskeletal: Normal muscle tone/bulk. Neuro: cranial nerves II XII grossly intact. Intact gross motor and sensory function. Psych: Appropriate mood and appropriate affect. Skin: + pallor. No petechiae. Heme/lymph: No peripheral edema at bilateral ankles. : +Zee catheter present. Labs/Imaging/Other Tests: ECHO: RVSP 43mmHg. Mild MR/TR/. EF 75-80%. LA mod-severely dilated. EKG - personally interpreted-sinus bradycardia, incomplete RBBB. Objective: Vital Signs Temp Pulse Resp BP Pulse Ox 36.8 C 52 L 16 128/59 H 89 L 02/22/19 15:58 02/22/19 15:58 02/22/19 15:58 02/22/19 15:58 02/22/19 15:58 Laboratory Results 02/22/19 05:40 02/21/19 04:15 02/21/19 02/22/19 02/23/19 05:59 05:59 05:59 Intake Total 806 1618 750 Output Total 8650 650 Balance 806 -6331 100 PT 13.7 SEC (12.0-15.0) 02/15/19 19:41 INR 1.09 (0.83-1.16) 02/15/19 19:41 - Time Spent With Patient Time Spent with Patient: greater than 35 minutes Time Spent with Patient: Greater than 35 minutes spent on this patients care, greater than 50% of time spent counseling, educating, and coordinating care regarding the above mentioned plan. ICD10 Worksheet Patient Problems: Problems Problem Status Onset Abdominal pain Acute Bladder cancer Acute Bronchitis Acute Chronic Disease Mgmt/Transitional Care Acute Dehydration Acute Fever and chills Acute GIB (gastrointestinal bleeding) Acute Generalized weakness Acute Intoxication Acute Pneumonia Acute Respiratory tract infection Acute UTI (urinary tract infection) Acute UTI (urinary tract infection) Acute
--- NOTE | 2019-02-22 21:32 | SOAPPROG ---
SOAP Progress Note Assessment/Plan: Assessment: Gross hematuria, now resolved after fulguration. Bladder tumor s/p TURBT, ureteral bx 1 weeks ago. Path benign, no malignancy. Recent TIA COPD Dementia Plan: Start eliquis, stop heparin tonight. Remove pinto tomorrow 5am. DC planning for tomorrow. 02/20/19 16:35 02/20/19 16:39 02/21/19 13:39 02/22/19 21:30 Subjective: Doing well. Pain w pinto, occasional bladder spasms. Otherwise alan diet, ambulating this PM. Objective: Vital Signs Temp Pulse Resp BP Pulse Ox 36.6 C 54 L 18 132/59 H 90 L 02/22/19 19:46 02/22/19 19:46 02/22/19 19:46 02/22/19 19:46 02/22/19 19:46 Laboratory Results 02/22/19 05:40 02/21/19 04:15 02/21/19 02/22/19 02/23/19 05:59 05:59 05:59 Intake Total 806 2758 750 Output Total 8650 650 Balance 806 -5892 100 PT 13.7 SEC (12.0-15.0) 02/15/19 19:41 INR 1.09 (0.83-1.16) 02/15/19 19:41 Gen NAD A&O CV regular Lungs Normal effort Abd soft Ext warm urine clear yellow in pinto tubing. ICD10 Worksheet Patient Problems: Problems Problem Status Onset Abdominal pain Acute Bladder cancer Acute Bronchitis Acute Chronic Disease Mgmt/Transitional Care Acute Dehydration Acute Fever and chills Acute GIB (gastrointestinal bleeding) Acute Generalized weakness Acute Intoxication Acute Pneumonia Acute Respiratory tract infection Acute UTI (urinary tract infection) Acute UTI (urinary tract infection) Acute
[2019-02-22] MEDS: LOSARTAN POTASSIUM 50 MG TAB PO SCH (21:45)
[2019-02-22] MEDS: APIXABAN 2.5 MG TAB PO SCH (21:46)
[2019-02-23 07:35] VITALS: BP 113/53
--- NOTE | 2019-02-23 07:37 | SOAPPROG ---
SOAP Progress Note Assessment/Plan: Assessment: Gross hematuria, now resolved after fulguration. Bladder tumor s/p TURBT, ureteral bx 1 weeks ago. Path benign, no malignancy. Recent TIA COPD Dementia Plan: Pinto out, voiding trial. Bladder scan after void and if no void in 4 hrs. Home this PM once OK w hospitalist, PT/OT. 02/20/19 16:35 02/20/19 16:39 02/21/19 13:39 02/22/19 21:30 02/23/19 07:35 Subjective: Doing well, pinto out. Wanting to take shower. Objective: Vital Signs Temp Pulse Resp BP Pulse Ox 36.3 C 52 L 18 113/53 L 95 02/23/19 07:32 02/23/19 07:32 02/23/19 07:32 02/23/19 07:32 02/23/19 07:32 Laboratory Results 02/22/19 05:40 02/21/19 04:15 02/22/19 02/23/19 02/24/19 05:59 05:59 05:59 Intake Total 2758 950 Output Total 8650 1050 200 Balance -5892 -100 -200 PT 13.7 SEC (12.0-15.0) 02/15/19 19:41 INR 1.09 (0.83-1.16) 02/15/19 19:41 Gen NAD A&O CV regular Lungs Normal effort Abd soft Ext warm pinto out ICD10 Worksheet Patient Problems: Problems Problem Status Onset Abdominal pain Acute Bladder cancer Acute Bronchitis Acute Chronic Disease Mgmt/Transitional Care Acute Dehydration Acute Fever and chills Acute GIB (gastrointestinal bleeding) Acute Generalized weakness Acute Intoxication Acute Pneumonia Acute Respiratory tract infection Acute UTI (urinary tract infection) Acute UTI (urinary tract infection) Acute
[2019-02-23] MEDS: valACYclovir 500 MG TAB PO SCH (09:54)
[2019-02-23] MEDS: CYANO/VITAMIN B12 1000 MCG TAB PO SCH (09:54)
[2019-02-23] MEDS: CHOLECALCIFEROL VIT D3 1,000 UNITS TAB PO SCH (09:54)
[2019-02-23] MEDS: ATORVASTATIN CALCIUM 40 MG TAB PO SCH (09:54)
[2019-02-23] MEDS: ESCITALOPRAM OXALATE 10 MG TAB PO SCH (09:54)
[2019-02-23] MEDS: APIXABAN 2.5 MG TAB PO SCH (09:55)
--- NOTE | 2019-02-23 12:53 | PDIAF ---
- Diagnosis Diagnosis: gross hematuria Code Status: Full Code - Medication Management Discharge Medications: electronically signed and located in the Home Medication List. - Orders Services needed: Home Care, Certified Certified Flex Endoscope Reprocessor, Physical Therapy, Occupational Therapy Home Care Face to Face: I certify that this patient was under my care and that I had the required [id number] encounter meeting the encounter requirements on the discharge day. My findings support the fact that the patient is homebound as defined in Home Care Face to Face Continued: CMS Chapter 7 Medicare Benefits Manual 30.1.1 , The condition of the patient is such that there exists a normal inability to leave home and consequently, leaving home would require a considerable and taxing effort. Isolation Type: None Diet Recommendation: no restrictions on diet Diet Texture: Regular Texture Diet Additional Instructions: Activity as tolerated, walking encouraged. No specific restrictions. Call MD if any questions, concerns, fevers/chills or unable to void. - Follow Up Care Current Providers and Referrals: Patient,NotPresent [Unknown] -
--- NOTE | 2019-02-23 12:55 | HOSPPROG ---
Hospitalist Progress Note Assessment/Plan: The patient is a 83-year-old male with PMH bladder cancer who was admitted for hematuria following a bladder mass biopsy. ASSESSMENT/PLAN: Hematuria, s/p surgical cauterization - resolved Suspected recurrent bladder cancer Bladder pain, 2/2 above Anemia, acute blood loss and chronic - stable -was On heparin gtt. -Switched back to Eliquis on 02/22 p.m. TAMARA H/o diverticular bleeding Heart murmur Pulm HTN Asymptomatic bradycardia, chronic Mild cognitive impairment Chronic diarrhea -Imodium prn. VTE prophylaxis: held for bleeding. Code Status: Full code. Status: inpt for > 2 midnight stay. Disposition: hematuria resolved. now back on Eliquis. Ok for d/c from hospitalist perspective Subjective: no cp or sob. no n/v. hematuria resolved Objective: Vital Signs Temp Pulse Resp BP Pulse Ox 36.3 C 52 L 18 113/53 L 95 02/23/19 07:32 02/23/19 07:32 02/23/19 07:32 02/23/19 07:32 02/23/19 07:32 Laboratory Results 02/22/19 05:40 02/21/19 04:15 02/22/19 02/23/19 02/24/19 05:59 05:59 05:59 Intake Total 2758 950 Output Total 8650 1050 525 Balance -5892 -100 -525 PT 13.7 SEC (12.0-15.0) 02/15/19 19:41 INR 1.09 (0.83-1.16) 02/15/19 19:41 - Physical Exam Constitutional: no apparent distress Eyes: PERRL, EOMI Ears, Nose, Mouth, Throat: moist mucous membranes, hearing normal Cardiovascular: regular rate and rhythym, No edema Respiratory: no respiratory distress, no rales or rhonchi, clear to auscultation Gastrointestinal: normoactive bowel sounds, soft, non-tender abdomen Skin: warm Neurologic: AAOx3 Psychiatric: interacting appropriately, not anxious, not encephalopathic Lymph, Heme, Immunologic: No petechiae ICD10 Worksheet Patient Problems: Problems Problem Status Onset Abdominal pain Acute Bladder cancer Acute Bronchitis Acute Chronic Disease Mgmt/Transitional Care Acute Dehydration Acute Fever and chills Acute GIB (gastrointestinal bleeding) Acute Generalized weakness Acute Intoxication Acute Pneumonia Acute Respiratory tract infection Acute UTI (urinary tract infection) Acute UTI (urinary tract infection) Acute
--- NOTE | 2019-02-28 15:21 | GDS ---
[f rep st] DISCHARGE SUMMARY PREOPERATIVE DIAGNOSES: Recent transient ischemic attack, need for continuous anticoagulation, bladder tumor, dementia, chronic obstructive pulmonary disease , and also other preoperative diagnoses. PROCEDURES PERFORMED: 1. Transurethral resection of bladder tumor and biopsy of left ureteral abnormal tissue on the 14 February 2019. 2. On February 21, he underwent a fulguration of bladder mucosa for persistent hematuria. HOSPITAL COURSE: The patient was admitted on 02/12/2019, and to the urology service. Hospitalist was consulted to help manage heparin bridging on a patient with a recent TIA and need for continuous anticoagulation per his primary care as well as neurologist. He then underwent a TURBT. Please see the operative note dated February 14, 2019, and his procedure went well, and he was hemostatic from the resection initially. However, once his heparin became therapeutic, he had increase in hematuria. I did start him on continuous bladder irrigation on February 17, and despite this, he continued to have urine that had more hematuria than I would expect. I decided on February 21, then to take him back to the operating room, and evaluate with cystoscopy, and I did find an area of bladder mucosa that was bleeding. I did fulgurate this, and he became hemostatic immediately afterwards. He remained hemostatic for the rest of his hospital stay. I did stop heparin in the OR on the for 8 hours and then restarted it back up and restarted his Xarelto the next day. He did well. He again remained hemostatic, and his Zee catheter was removed on February 23 and he voided well on his own. He did well during his entire hospitalization. PT and OT were consulted and worked with him during his entire stay, and he otherwise did well. In terms of followup, he will follow up with me in 1-2 weeks for re-evaluation of his bladder and postvoid residual of followup. MEDICATIONS: Please see the medications in the computer. Postop: he will schedule to see me in 2 weeks in clinic. /[id number]/MODL MTDD
== END 2019-02-23 13:14 | disposition home health service (06) | DRG 663 ==
LOC: F1N 13:21 → OBSVTOIN 13:53
PROVIDERS: ADMIT Urology; ATTEND Urology
PROC: 0TBB8ZX Excision of Bladder, Via Natural or Artificial Opening Endoscopic, Diagnostic (ICD-10-PCS; 2019-02-14 15:15)
PROC: 0TB78ZX Excision of Left Ureter, Via Natural or Artificial Opening Endoscopic, Diagnostic (ICD-10-PCS; 2019-02-14 15:15)
PROC: 0W3R8ZZ Control Bleeding in Genitourinary Tract, Via Natural or Artificial Opening Endoscopic (ICD-10-PCS; principal; 2019-02-21 13:45)
DX: D49.4 Neoplasm of unspecified behavior of bladder (principal); D62 Acute posthemorrhagic anemia; N99.820 Postprocedural hemorrhage of a genitourinary system organ or structure following a genitourinary system procedure; I48.0 Paroxysmal atrial fibrillation; J44.9 Chronic obstructive pulmonary disease, unspecified; G47.33 Obstructive sleep apnea (adult) (pediatric); F32.9 Major depressive disorder, single episode, unspecified; R00.1 Bradycardia, unspecified; I27.20 Pulmonary hypertension, unspecified; K52.9 Noninfective gastroenteritis and colitis, unspecified; I10 Essential (primary) hypertension; Z79.01 Long term (current) use of anticoagulants; Z85.51 Personal history of malignant neoplasm of bladder; Z85.038 Personal history of other malignant neoplasm of large intestine; Z86.73 Personal history of transient ischemic attack (TIA), and cerebral infarction without residual deficits; Z87.891 Personal history of nicotine dependence
CPT/HCPCS: 85520-90; 97110-GP; 97116-GP; 97161-GP; 97166-GO; 97530-GP; 97535-GO; C1758; C1769; J0360; J0690; J1100; J1644; J1885; J2001; J2250; J2370; J2405; J2704; J3010; Q9967